=== PATIENT | female | born 1935 | race Caucasian/White ===

== ENCOUNTER 2023-01-05 11:39 | Observation (INO) | payer MEDICARE, OTHER, SELFPAY ==
[2023-01-05] VITALS (36 sets, daily range): BP systolic 107–202; BP diastolic 53–90; PULSE 63–90; RESP 9–24; TEMP 36.4–36.6; O2SAT 94–98; BMI 26.6; BMI 26.7
--- NOTE | 2023-01-05 11:42 | ECG_ITS ---
The 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
[2023-01-05 11:50] LABS: Glucometer 128 mg/dL (74-106)
[2023-01-05 11:55] LABS: Basophils Absolute Auto 0.1 10^3/uL (0.0-0.1); Basophils Percent Auto 1.2 % (0.2-2.0); Eosinophils Absolute Auto 0.3 10^3/uL (0.0-0.7); Eosinophils Percent Auto 3.6 % (0.9-7.0); Hematocrit 35.8 % (36.0-48.0); Hemoglobin 11.6 g/dL (12.0-16.0); Immature Granulocytes Abs Auto 0.03 10^3/uL (0.00-0.03); Immature Granulocytes Pct Auto 0.3 % (0.0-0.5); Lymphocytes Absolute Auto 2.3 10^3/uL (1.2-3.8); Lymphocytes Percent Auto 25.8 % (20.5-60.0); Mean Corpuscular HGB Conc 32.4 g/dL (29.9-35.2); Mean Corpuscular Hemoglobin 30.7 pg (26.7-34.0); Mean Corpuscular Volume 94.7 fL (81.0-99.0); Mean Platelet Volume 9.8 fL (9.5-13.5); Monocytes Absolute Auto 0.9 10^3/uL (0.3-0.8); Monocytes Percent Auto 9.5 % (1.7-12.0); Neutrophils Absolute Auto 5.3 10^3/uL (1.4-6.5); Neutrophils Percent Auto 59.6 % (43.0-75.0); Platelet Count 327 10^3/uL (150-450); Red Blood Count 3.78 10^6/uL (4.20-5.40); Red Cell Distribution Width 12.6 % (11.0-15.0); White Blood Count 8.9 10^3/uL (4.0-11.0)
[2023-01-05 12:07] LABS: INR 0.94
[2023-01-05 12:10] LABS: Alanine Aminotransferase 16 U/L (14-59); Albumin Globulin Ratio 1.1; Albumin Level 3.6 g/dL (3.4-5.0); Alkaline Phosphatase 98 U/L (46-116); Anion Gap 11.2; Aspartate Amino Transferase 12 U/L (15-37); BUN Creatinine Ratio 19.1; Bilirubin Total 0.4 mg/dL (0.2-1.0); Calcium 9.2 mg/dL (8.5-10.1); Carbon Dioxide 27.4 mmol/L (21.0-32.0); Chloride 99 mmol/L (98-107); Estimated GFR (African America >60 (>=60); Estimated GFR (Non-African Ame 57 (>=60); Globulin 3.4 g/dL; Glucose 119 mg/dL (74-106); Potassium 3.6 mmol/L (3.5-5.1); Sodium 134 mmol/L (136-145)
[2023-01-05 12:12] LABS: Troponin I High Sensitivity 5.9 pg/mL (4.0-51.3)
--- NOTE | 2023-01-05 12:12 | PC.NURSE ---
pt reports having fainting spells for yrs, states no dizzy at this time but just feels tired. at bedside at this time
--- NOTE | 2023-01-05 12:17 | CT_ITS ---
The [address] [address] Patient Name: JOSE SANTOYO MRN: [id number] date: 1935 Sex: F Assigned Patient Location: ER Current Patient Location: ED.MAIN Accession/Order Number: [id number] Exam Date: 01/05/2023 12:45 Report Date: 01/05/2023 13:32 At the request of: JOS CANADA Procedure: CT head/brain wo con EXAM: CT head/brain wo con HISTORY: ams altered mental status. COMPARISON: CT head 06/29/2020. TECHNIQUE: Axial soft tissue and bone windows through the calvarium with coronal and sagittal reformats. CT dose reduction technique was used including Automated Exposure Control. Findings: There is mild mucosal thickening within the paranasal sinuses. There is a small amount of frothy secretions within the left sphenoid sinus. The mastoid air cells are well aerated. No extra-axial fluid collection. No intra-axial or extra-axial bleed. No mass effect or midline shift. The lopes-white matter differentiation is preserved. There are white matter low attenuation lesions which are nonspecific but commonly attributed to chronic small vessel ischemic disease. The brain parenchymal volume is mildly reduced yet likely age-appropriate. The ventricles are nondilated. The basal cisterns are patent. The craniovertebral junction is unremarkable. CT/CT head/brain wo con IMPRESSION: 1. No acute intracranial abnormality. MRI is more sensitive for the evaluation of acute ischemia 2. Senescent changes. Electronically authenticated by: NEEMA DUMONT Date: 01/05/2023 13:32
[2023-01-05] MEDS: 0.9 % SODIUM CHLORIDE 1,000 ML 1000 ML IV (12:29)
--- NOTE | 2023-01-05 12:59 | ED.SYNCOPE1 ---
HPI - Syncope General Chief Complaint: Syncope Stated Complaint: SYNCOPE Time Seen by Provider: 01/05/23 11:42 Source: patient Mode of arrival: Wheelchair Limitations: no limitations History of Present Illness HPI narrative: The patient is coming to the ER after she had 2 syncopal episode today the first was when she was standing in the store and she was lowered by her relative to the floor she did not fall but after being lowered to the floor the patient passed out for few seconds after which she woke up not confused and then the patient was brought to us by the private car during which she also passed in the car The patient upon presentation she was wide-awake she mentioned that she did not have any symptoms preceding to this incident and she was not standing for long time. The patient denies any chest pain she did mention having some nausea The patient also denies any headache , chest pain or abdominal pain the patient has been losing weight for a while and apparently has been going through a lot of stress as her 2 sons and her recently The patient denies any change in bowel movement but she mentioned that she does not right had a bowel movement after the incident that was normal Related Data Home Medications Medication Instructions Recorded Confirmed lisinopril 10 mg tablet 10 mg PO DAILY 01/05/23 01/05/23 Allergies Allergy/AdvReac Type Severity Reaction Status Date / Time No Known Drug Allergies Allergy Verified 01/05/23 11:44 Review of Systems ROS Status of ROS 10 or more systems reviewed and unremarkable except as noted in history and below Exam Narrative Exam Narrative: Nurses notes and vital signs reviewed and patient is not hypoxic. General: Well-appearing and in no apparent distress. Skin: Warm, dry, no pallor noted. No rash. Head: Normocephalic, atraumatic. Neck: Supple, non-tender. Eye: Pupils are equal, round and EOMI. No scleral icterus. Ears, Nose, Mouth, and Throat: TM are clear, no nasal mucosal hypertrophy. Oral mucosa is moist, no posterior oropharynx erythema, uvula is mid-line Cardiovascular: Regular Rate and Rhythm without murmur, gallop or rub. Respiratory: No accessory muscle use or respiratory distress. Lungs are clear to auscultation, no wheezing, rales or rhonchi Chest Wall: no tenderness Back: No midline thoracic or lumbar vertebral tenderness. No CVA tenderness Musculoskeletal: normal ROM, no calf or popliteal tenderness, no lower extremity edema/swelling GI: Abdomen is soft, non-distended. Normal bowel sounds. No masses appreciated. No tenderness to palpation. No rebound, guarding, or rigidity noted. Neurological: A&O x4. No cranial nerve dysfunction observed. No truncal ataxia. Moves all extremities. Sensation intact. Psychiatric: Cooperative and interactive. Normal mood and affect. Constitutional Vital Signs, click to edit/add: Last Vital Signs Temp 97.6 F 01/05/23 11:44 Pulse 76 01/05/23 13:40 Resp 18 01/05/23 13:40 BP 167/80 H 01/05/23 14:11 Pulse Ox 97 01/05/23 12:00 O2 Del Method Room Air 01/05/23 12:00 Course Vital Signs Vital signs: Vital Signs Temperature 97.6 F 01/05/23 11:44 Pulse Rate 69 01/05/23 11:44 Respiratory Rate 16 01/05/23 11:44 Blood Pressure 127/82 01/05/23 11:44 Pulse Oximetry 96 01/05/23 11:44 Oxygen Delivery Method Room Air 01/05/23 11:44 Temperature 97.6 F 01/05/23 11:44 Pulse Rate 76 01/05/23 13:40 Respiratory Rate 18 01/05/23 13:40 Blood Pressure 167/80 H 01/05/23 14:11 Pulse Oximetry 97 01/05/23 12:00 Oxygen Delivery Method Room Air 01/05/23 12:00 MDM - Syncope MDM Narrative Medical decision making narrative: EKG showing sinus rhythm with a heart rate of [address] elevation or depression the patient have a orthostatic also that are negative The patient CBC and chemistry showed no acute significant pathology and the troponin repeated twice was negative it was noted that the patient was still looking tired and she had 2 episodes [id number] of syncope although the first 1 could fit the criteria for possible vasovagal but because she had 2 episodes and the fact that all the work-up so far is negative the patient will be kept for observation CT head showed no acute significant pathology The patient case was discussed with and he agreed on the above-mentioned plan Lab Data Labs: Lab Results 01/05/23 01/05/23 01/05/23 Range/Units 11:43 11:45 14:12 WBC 8.9 (4.0-11.0) 10^3/uL RBC 3.78 L (4.20-5.40) 10^6/uL Hgb 11.6 L (12.0-16.0) g/dL Hct 35.8 L (36.0-48.0) % MCV 94.7 (81.0-99.0) fL MCH 30.7 (26.7-34.0) pg MCHC 32.4 (29.9-35.2) g/dL RDW 12.6 (11.0-15.0) % Plt Count 327 (150-450) 10^3/uL MPV 9.8 (9.5-13.5) fL Neut % (Auto) 59.6 (43.0-75.0) % Lymph % (Auto) 25.8 (20.5-60.0) % Fallon % (Auto) 9.5 (1.7-12.0) % Eos % (Auto) 3.6 (0.9-7.0) % Baso % (Auto) 1.2 (0.2-2.0) % Neut # (Auto) 5.3 (1.4-6.5) 10^3/uL Lymph # (Auto) 2.3 (1.2-3.8) 10^3/uL Fallon # (Auto) 0.9 H (0.3-0.8) 10^3/uL Eos # (Auto) 0.3 (0.0-0.7) 10^3/uL Baso # (Auto) 0.1 (0.0-0.1) 10^3/uL Abs Immat Gran (auto) 0.03 (0.00-0.03) 10^3/uL Imm/Tot Granulo (auto) 0.3 (0.0-0.5) % PT 10.0 (9.0-11.6) sec INR 0.94 Sodium 134 L (136-145) mmol/L Potassium 3.6 (3.5-5.1) mmol/L Chloride 99 (98-107) mmol/L Carbon Dioxide 27.4 (21.0-32.0) mmol/L Anion Gap 11.2 BUN 18.0 (7.0-18.0) mg/dL Creatinine 0.94 (0.55-1.02) mg/dL Est GFR ( Amer) >60 (>=60) Est GFR (Non-Af Amer) 57 L (>=60) BUN/Creatinine Ratio 19.1 Glucose 119 H (74-106) mg/dL Calcium 9.2 (8.5-10.1) mg/dL Total Bilirubin 0.4 (0.2-1.0) mg/dL AST 12 L (15-37) U/L ALT 16 (14-59) U/L Alkaline Phosphatase 98 (46-116) U/L Troponin I High Sens 5.9 6.4 (4.0-51.3) pg/mL Total Protein 7.0 (6.4-8.2) g/dL Albumin 3.6 (3.4-5.0) g/dL Globulin 3.4 g/dL Albumin/Globulin Ratio 1.1 POC Glucose 128 H (74-106) mg/dL Discharge Plan Discharge Chief Complaint: Syncope Clinical Impression: Recurrent syncope Patient Disposition: Admitted as Observation Time of Disposition Decision: 14:50 Condition: Good
[2023-01-05] MEDS: ONDANSETRON PF 4 MG/2 ML VIAL IV (13:15)
[2023-01-05] MEDS: LISINOPRIL 10 MG TABLET PO (14:11)
[2023-01-05 14:36] LABS: Troponin I High Sensitivity 6.4 pg/mL (4.0-51.3)
--- NOTE | 2023-01-05 14:52 | CA_ITS ---
Patient: JOSE SANTOYO Exam Date: 01/05/2023 : 1935 Gender:F Ordering : Olinda Mcguire Admission #: [id number] Family : DR LEOLA VARGAS . Order #: [id number] CLICK HERE TO VIEW EXAM ECHOCARDIOGRAM REPORT PROCEDURE: CA ECHO DOPPLER COMPLETE INDICATIONS: syncope COMPARISON: None. DESCRIPTION: COMPLETE ECHOCARDIOGRAM Real-time transthoracic echocardiography with 2D, M-mode, spectral and color flow Doppler performed. QUALITY: Technical quality was good. LEFT VENTRICLE: Normal chamber size. Proximal septal hypertrophy (sigmoid septum). Normal systolic function. LV EF: Normal left ventricular ejection fraction, (55-60%). DIASTOLIC: Normal diastolic function. ATRIAL SEPTUM: Visually appears intact. LEFT ATRIUM: Normal chamber size. RIGHT ATRIUM: Normal chamber size. RIGHT VENTRICLE: Normal chamber size. Normal right ventricular systolic function. TRICUSPID VALVE: Normal mobility and thickness. No stenosis with no regurgitation. MITRAL VALVE: Mildly thickened with normal mobility. No evidence of mitral valve stenosis. Moderate mitral annular calcification. No mitral regurgitation. AORTIC VALVE: Normal trileaflet appearance. No visible sclerosis. Normal leaflet mobility. No evidence of aortic valve stenosis. No aortic regurgitation. AORTIC ROOT: Normal diameter and appearance. PULMONIC VALVE: Normal thickness and mobility. No stenosis. No regurgitation. PERICARDIUM: No evidence of pericardial effusion. IVC: Collapses with inspirations. PLEURA: CONCLUSION: 1. Normal ventricular function. LVEF is 55 to 60%. 2. No significant valvular dysfunction. 3. No pericardial effusion. Adult Echocardiography Procedure Report Left Ventricle LVEDD (3.7 - 5.6 cm): 3.79 cm LVESD (2.2 - 4.0 cm): 2.20 cm LVIVS thickness (0.6 - 1.2 cm): 1.66 cm LVPW thickness (0.5 - 1.0 cm): 1.13 cm e': 0.07 m/s E - e': 12.76 LVOT Max Gradient: 6.67 mm[Hg] LVOT Area (cm2): 1.29 m/s Peak Velocity (LVOT): 1.29 m/s LVOT Diameter 2.19 cm Left Atrium LA Volume Index (2D A2C): 25.12 ml/m2 Left Atrium Systolic Dimension: 3.93 cm Mitral Valve MV E to A Ratio: 0.68 Mitral Valve A-Wave Peak Velocity: 1.36 m/s Mitral Valve E-Wave Peak Velocity: 0.92 m/s Right Ventricle Aorta AO Root Diam: 2.88 cm Aortic Valve AoV Area (Peak Damien): 3.48 cm2, 3.48 cm2 Peak Velocity(Antegrade Flow): 1.39 m/s Peak Gradient(Antegrade Flow): 7.78 mm[Hg] Tricuspid Valve Pulmonic Valve Peak Velocity: 1.12 m/s Peak Gradient: 5.99 mm[Hg], 4.19 mm[Hg] Right Atrium Dictated by: Farooq Woody M.D. on 01/05/2023 at 17:04 Approved by: Farooq Woody M.D. on 01/05/2023 at 17:09
--- NOTE | 2023-01-05 14:52 | US_ITS ---
[address] [address] Patient Name: JOSE SANTOYO MRN: [id number] date: 1935 Sex: F Assigned Patient Location: MS Current Patient Location: MS Accession/Order Number: [id number] Exam Date: 01/05/2023 16:10 Report Date: 01/06/2023 07:37 At the request of: LÓPEZ HUFFMAN Procedure: US carotid duplex BI ULTRASOUND Carotid artery color duplex History: Syncope. COMPARISON: None. METHOD: Bilateral carotid arterial duplex examination was performed using B-mode, color flow and spectral analysis. Carotid stenosis is reported according to validated velocity parameters, similar to NASCET criteria. FINDINGS: There is mild heterogeneous plaque in the carotid bulbs and internal carotid arteries. There are normal-appearing spectral arterial waveforms. There is normal color flow. The peak-systolic velocity in the internal carotid arteries in cm/s is as follows: RIGHT INTERNAL CAROTID ARTERY Proximal: 114 Mid: 132 Distal: 120 LEFT INTERNAL CAROTID ARTERY Proximal: 167 Mid: 155 Distal: 105 There are no elevated velocities in the common carotid or external carotid arteries bilaterally. There are forward-flow vertebral arteries. US/US carotid duplex BI IMPRESSION: Findings consistent with a 50-69% stenosis in the bilateral internal carotid arteries, left worse than right. Electronically authenticated by: ANSELMO ORLANDO Date: 01/06/2023 07:37
--- NOTE | 2023-01-05 15:43 | P.HP_ITS ---
Patient not seen, agree with assessment and plan below. Admitted after syncope. Monitor with telemetry and check carotids. Diagnosis: 1. Syncope 2. HTN H&P: HPI History of Present Illness Chief complaint: SYNCOPE Narrative: Date/Time of exam: 01/05/23 6803 This is an 87-year-old female patient with a relatively benign past medical history including hypertension and GERD and recurrent syncope, who reported to the ED after suffering 2 syncopal episodes earlier today. 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 Today she was in a store and was feeling warm which sometimes triggers syncope for her. She was attempting to get back outside to the car when she became syncopal and was caught by her friend and lowered to the ground. She was unconscious for approximately a minute and then regained full consciousness. The patient reports that prior to syncopal episodes she feels lightheaded and woozy. She denies prodromal vertigo, palpitations, shortness of breath, chest pain, headache, or any other symptom. She has full memory of events immediately preceding and immediately post syncope. After she was transferred to the car and they were on the way to the ER the patient had another syncopal episode, this time lasting 1 to 2 minutes and was again self-limited. Work-up in the ED 9 with unremarkable labs, negative troponins x2, and a CT of the head that was unremarkable. An EKG was normal sinus rhythm. OVS were negative. When she was transferring from the cart to CT bed she experienced sudden onset emesis. She denies nausea and vomiting with her usual syncopal events. No further nausea noted throughout the rest of her time in ED. She was given one liter of IVFs for suspected dehydration. As she continues to feel more weak than her baseline she is being admitted in observation to the hospitalist service for further work-up and monitoring. At the time of my exam in the ED the patient was awake and alert and denied any presyncopal symptoms. She feels that this event was similar to all of her previous events other than the emesis. She notes that she has experienced significant stress in the last couple of years as she has lost 2 sons and her . We will obtain a 2D echo to attempt to rule out wall motion or valvular abnormalities. In addition we will obtain a carotid duplex study to rule out physiologically significant stenosis. The pt notes that she did not s leep well last night and believes this may have contributed to her syncopal events Review of Systems ROS Status of ROS 10 or more systems reviewed and unremarkable except as noted in history and below [facility] Medical History (Updated 01/05/23 @ 15:51 by Olinda Mcguire NP) GERD (gastroesophageal reflux disease) ?K21.9 - Gastro-esophageal reflux disease without esophagitis (ICD-10) History of syncope ?Z87.898 - Personal history of other specified conditions (ICD-10) HTN (hypertension) ?I10 - Essential (primary) hypertension (ICD-10) Meds Home Medications and Allergies Home Medications Medication Instructions Recorded Confirmed Type alprazolam 0.25 mg tablet 0.25 mg PO .Q6 PRN anxiety 01/05/23 01/05/23 History lisinopril 10 mg tablet 10 mg PO DAILY 01/05/23 01/05/23 History Allergies Allergy/AdvReac Type Severity Reaction Status Date / Time No Known Drug Allergies Allergy Verified 01/05/23 11:44 Exam Constitutional Vital Signs, click to edit/add: Last Vital Signs Temp 97.6 F 01/05/23 11:44 Pulse 85 01/05/23 15:00 Resp 17 01/05/23 15:00 BP 159/69 H 01/05/23 15:00 Pulse Ox 97 01/05/23 12:00 O2 Del Method Room Air 01/05/23 12:00 Common normals: no apparent distress, oriented x3, alert and well nourished General appearance: cooperative Orientation/consciousness: Yes awake [facility] Common normals: normocephalic, head/scalp atraumatic, hearing grossly normal bilaterally, external ears normal, external nose normal and moist oral mucous membranes Eye Common normals: PERRL, EOMs intact bilaterally, conjunctivae normal and no scleral icterus General eye: normal appearance of both eyes Chest Common normals: inspection of chest normal Chest: symmetrical chest wall rise Respiratory Common normals: normal respiratory effort, no retractions, no use of accessory muscles and clear to auscultation bilaterally Effort & inspection: able to speak in complete sentences Cardio Common normals: no JVD, regular rate, regular rhythm, S1 normal heart sound, S2 normal heart sound, no gallops, no clicks, no rub and peripheral pulses 2+ throughout Heart sounds: murmur (HSM 2/6) GI Common normals: Normal to inspection, nondistended, normoactive bowel sounds present, soft to palpation, non-tender, no hepatosplenomegaly, no masses and no bruits Bladder/kidney exam: bladder normal to palpation Extremity Common normals: normal capillary refill General: normal exam except as noted and edema (Trace bilat insteps/ankles); no clubbing and no cyanosis Neuro Alexandre Coma Scale: GCS not evaluated Common normals: oriented x3, CN's II-XII intact bilaterally, moves all extremities, no focal motor deficits and no sensory deficits noted Psych Common normals: mental status grossly normal, thought process normal, affect normal and activity/motor behavior normal Thought process: normal thought process Results Labs Labs: Short CBC 01/05/23 Range/Units 11:45 WBC 8.9 (4.0-11.0) 10^3/uL Hgb 11.6 L (12.0-16.0) g/dL Hct 35.8 L (36.0-48.0) % Plt Count 327 (150-450) 10^3/uL BMP 01/05/23 11:45 Sodium 134 L Potassium 3.6 Chloride 99 Carbon Dioxide 27.4 BUN 18.0 Creatinine 0.94 Glucose 119 H Calcium 9.2 Liver Function 01/05/23 Range/Units 11:45 Total Bilirubin 0.4 (0.2-1.0) mg/dL AST 12 L (15-37) U/L ALT 16 (14-59) U/L Alkaline Phosphatase 98 (46-116) U/L Albumin 3.6 (3.4-5.0) g/dL Pulse Oximetry Attestation: I have reviewed the pertinent pulse oximetry results. Imaging CT scan - head: Attestation: I have reviewed the pertinent imaging results. Radiologist's impression: IMPRESSION: 1. No acute intracranial abnormality. MRI is more sensitive for the evaluation of acute ischemia 2. Senescent changes. Assessment and Plan Assessment and Plan (1) Recurrent syncope: Assessment and Plan: ACUTE ON CHRONIC * Adm observation * Neuro checks q4h * OVS BID - neg in the ED * 2D Echo to r/o WM or Valvular abn. * Carotid duplex to r/o significant stenosis * Tele monitoring * Consider MRI brain in AM pending clinical course * CBC, CMP in AM (2) GERD (gastroesophageal reflux disease): Assessment and Plan: CHRONIC * PPI daily (3) HTN (hypertension): Assessment and Plan: CHRONIC * Continue home lisinopril - hold for SBP < 110. * No evidence of hypotension as etiology of syncope
[2023-01-05] MEDS: ALPRAZOLAM 0.25 MG TABLET PO (18:16)
[2023-01-05] MEDS: ENOXAPARIN SODIUM 40 MG/0.4 ML SYRINGE SUBQ (18:17)
[2023-01-05] MEDS: OMEPRAZOLE 20 MG CAPSULE.DR PO (18:17)
[2023-01-06] VITALS (7 sets, daily range): BP systolic 147–180; BP diastolic 51–70; PULSE 61–72; RESP 18; TEMP 36.9; O2SAT 93
[2023-01-06 05:16] LABS: Basophils Absolute Auto 0.1 10^3/uL (0.0-0.1); Basophils Percent Auto 1.5 % (0.2-2.0); Eosinophils Absolute Auto 0.3 10^3/uL (0.0-0.7); Eosinophils Percent Auto 5.3 % (0.9-7.0); Hematocrit 30.9 % (36.0-48.0); Hemoglobin 10.1 g/dL (12.0-16.0); Immature Granulocytes Abs Auto 0.01 10^3/uL (0.00-0.03); Immature Granulocytes Pct Auto 0.2 % (0.0-0.5); Lymphocytes Absolute Auto 1.9 10^3/uL (1.2-3.8); Lymphocytes Percent Auto 31.9 % (20.5-60.0); Mean Corpuscular HGB Conc 32.7 g/dL (29.9-35.2); Mean Corpuscular Volume 94.8 fL (81.0-99.0); Mean Platelet Volume 10.1 fL (9.5-13.5); Monocytes Absolute Auto 0.6 10^3/uL (0.3-0.8); Monocytes Percent Auto 10.7 % (1.7-12.0); Neutrophils Percent Auto 50.4 % (43.0-75.0); Platelet Count 257 10^3/uL (150-450); Red Blood Count 3.26 10^6/uL (4.20-5.40); Red Cell Distribution Width 12.5 % (11.0-15.0); White Blood Count 5.9 10^3/uL (4.0-11.0)
[2023-01-06 05:39] LABS: Alanine Aminotransferase 15 U/L (14-59); Albumin Level 2.9 g/dL (3.4-5.0); Alkaline Phosphatase 79 U/L (46-116); Aspartate Amino Transferase 12 U/L (15-37); BUN Creatinine Ratio 22.2; Bilirubin Total 0.5 mg/dL (0.2-1.0); Calcium 8.8 mg/dL (8.5-10.1); Carbon Dioxide 28.8 mmol/L (21.0-32.0); Chloride 105 mmol/L (98-107); Estimated GFR (African America >60 (>=60); Estimated GFR (Non-African Ame >60 (>=60); Glucose 82 mg/dL (74-106); Potassium 3.8 mmol/L (3.5-5.1); Sodium 138 mmol/L (136-145); Total Protein 5.9 g/dL (6.4-8.2)
[2023-01-06] MEDS: LISINOPRIL 10 MG TABLET PO (09:43)
[2023-01-06] MEDS: OMEPRAZOLE 20 MG CAPSULE.DR PO (09:43)
--- NOTE | 2023-01-30 15:05 | PM.DS1 ---
DS: Providers Provider Date of admission: 01/05/23 15:28 Primary care physician: JANIE LINO Consults: 01/05/23 15:29 Physical Therapy Eval and Treat Routine Reason for consultation: Gen weakness Has provider been notified: No Attending physician on discharge: Shaikh Myron Discharging clinician: Shaikh Myron Anticipated date of discharge: 01/06/23 DS: Diagnosis Discharge Diagnosis (1) Recurrent syncope: Assessment and plan: Likely Vasovagal. CTH - no acute pathology noted. 2D ECHO - no sig abnormality noted. 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 At goal. Decreased dose to 10 mg. DS: Summary Hospital Course Hospital Course: Patient admitted for 2 syncopal episodes. Description seemed cw vasovagal syncope. Admitted for overnight observation. Did well and denied any active complaints. Babcock included Normal CTH, 2D ECHO. Carotid US indicated 50-70% stenosis b/l. Stable for d/c on home meds and outpatient f/u with PCP Status at Discharge Functional status at discharge: independent ambulation Overall status at discharge: patient is back to baseline Time Spent with Patient Time attestation: Total time spent providing and/or coordinating discharge services: Time spent: greater than 30 minutes Exam Constitutional Vital Signs, click to edit/add: Last Vital Signs Temp 98.4 F 01/06/23 06:00 Pulse 72 01/06/23 10:00 Resp 18 01/06/23 06:00 BP 160/70 H 01/06/23 09:43 Pulse Ox 93 L 01/06/23 06:00 O2 Del Method Room Air 01/06/23 06:00 Documenting provider has reviewed patient's vital signs: yes Common normals: no apparent distress and oriented x3 General appearance: cooperative Respiratory Common normals: normal respiratory effort and clear to auscultation bilaterally Effort & inspection: able to speak in complete sentences Auscultation: clear to auscultation bilaterally Cardio Common normals: regular rate, S1 normal heart sound and S2 normal heart sound Rate: regular rate Heart sounds: S1 normal and S2 normal GI Common normals: Normal to inspection, nondistended, normoactive bowel sounds present, soft to palpation, non-tender and no hepatosplenomegaly Palpation: soft and no hepatosplenomegaly Neuro Common normals: oriented x3, moves all extremities and no focal motor deficits Discharge Plan Discharge Disposition: Home, Self-Care Condition: Good Discharge Medications: Continued lisinopril 10 mg tablet 20 mg PO DAILY Activity: increase activity as tolerated Diet: advance to your usual diet Patient Instructions: Near Syncope (DC) Forms: Portal Instructions Referrals: Shaikh Sanches MD [Physician] - Follow Up Appointments: Follow up with Dr Lino in 7-10 days. [phone] Sanches as patient is thinking of switching to him as her PCP Discharge Date/Time: 01/06/23 11:50
== END 2023-01-06 11:50 | disposition home or self-care (01) ==
LOC: ER 14:50 → MS 15:33
PROVIDERS: Nurse Practitioner; Admitting Provider Internal Medicine; Emergency Provider Emergency Medicine; PCP Internal Medicine; Visit Provider Internal Medicine
DX: R55 Syncope and collapse (principal); I10 Essential (primary) hypertension; K21.9 Gastro-esophageal reflux disease without esophagitis; Z79.899 Other long term (current) drug therapy
CPT/HCPCS: 36415; 36416; 70450; 80053; 82948; 84484; 85025; 85610; 93005; 93306; 93880; 96361; 96372; 96374; 99285; G0378

== ENCOUNTER 2023-01-12 17:54 | Emergency (ER) | payer MEDICARE, OTHER, SELFPAY ==
[2023-01-12] VITALS (22 sets, daily range): BP systolic 170–225; BP diastolic 67–105; PULSE 66–98; RESP 12–26; TEMP 36.4; O2SAT 96–99; BMI 27.8
--- NOTE | 2023-01-12 18:10 | ECG_ITS ---
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
--- NOTE | 2023-01-12 18:10 | XR_ITS ---
The [address] [address] Patient Name: JOSE SANTOYO MRN: [id number] date: 1935 Sex: F Assigned Patient Location: ED.MAIN Current Patient Location: ER Accession/Order Number: [id number] Exam Date: 01/12/2023 18:30 Report Date: 01/12/2023 19:12 At the request of: ELVA ISRAEL Procedure: XR chest 1V EXAM: XR chest 1V HISTORY: HTN COMPARISON: None. TECHNIQUE: AP portable study FINDINGS: The cardiovascular silhouette is normal. Atherosclerotic aorta without visible aneurysm. Lung viera are well-expanded and clear. Pleural spaces are clear. The bony structures are unremarkable. XR/XR chest 1V IMPRESSION: No evidence for acute cardiopulmonary disease. Electronically authenticated by: Juanjose BAILON Date: 01/12/2023 19:12
--- NOTE | 2023-01-12 18:25 | ED_ITS ---
Documented by User: JYOTHI Dejesus 01/12/23 20:23 HPI - General Adult General Chief complaint: Recheck/Abnormal Lab/Rx Stated complaint: Hypertension Time Seen by Provider: 01/12/23 18:08 Source: patient Mode of arrival: walk-in Limitations: no limitations History of Present Illness HPI narrative: patient is a 87-year-old female presents to the Emergency Room with concerns of hypertension. Patient states she took her blood pressure at home noted to be elevated above two hundred systolic and again at the local drug store. Patient states she does not have any symptoms such as chest pain shortness of breath or headache. Patient states she has been anxious since losing her to a head bleed and her son to pancreatic cancer. She also had another son two years ago. Patient is accompanied today by her grandson. Patient states she took lisinopril 20 mg earlier today and took another 10 mg about one hour prior to arrival, but was not appreciating a difference in her blood pressure. Patient notes she has had high bouts of blood pressure intermittently in the past with anxiety requiring treatment. Patient appears calm and redirectable, admits to 50 pound weight loss since the of her loved ones but has recently started getting her appetite back. Patient has been talking her way through depression/grief feelings.. Related Data Home Medications Medication Instructions Recorded Confirmed lisinopril 10 mg tablet 20 mg PO DAILY 01/05/23 01/12/23 Allergies Allergy/AdvReac Type Severity Reaction Status Date / Time No Known Drug Allergies Allergy Verified 01/05/23 11:44 Review of Systems ROS Constitutional Denies: fever or chills Eyes Denies: change in vision or blurry vision Ears, nose, mouth, and throat Denies: throat pain, neck pain, throat swelling or ear discharge Cardiovascular Denies: chest pain, palpitations or edema Respiratory Denies: shortness of breath or cough Gastrointestinal Denies: abdominal pain, nausea or vomiting Genitourinary Denies: painful urination Musculoskeletal Denies: back pain or neck pain Integumentary/Breast Denies: rash, itching, redness or non-healing lesion Neurological Denies: headache, numbness in extremities, weakness in extremities, lack of coordination, dizziness, vertigo or confusion Psychiatric Reports: anxiety Endocrine Denies: excessive urination Hematologic/Lymphatic Denies: easy bruising Allergic/Immunologic Denies: hives PFSH PFSH Medical History (Updated 01/12/23 @ 18:31 by JYOTHI Dejesus) GERD (gastroesophageal reflux disease) ?K21.9 - Gastro-esophageal reflux disease without esophagitis (ICD-10) History of syncope ?Z87.898 - Personal history of other specified conditions (ICD-10) HTN (hypertension) ?I10 - Essential (primary) hypertension (ICD-10) Recurrent syncope ?R55 - Syncope and collapse (ICD-10) Social History Smoking status: Never smoker Exam Narrative Exam Narrative: Nurses notes and vital signs reviewed and patient is not hypoxic. General: The patient appears well and in no apparent distress. Patient is resting comfortably on cart. Skin: Warm, dry, no pallor noted. Head: Normocephalic, atraumatic Neck: Supple, trachea mid-line, no tenderness, no lymphadenopathy Eye: Pupils are equal, round and reactive to light, EOMI Ears, Nose, Mouth, and Throat: TM are clear, normal light reflex, oral mucosa is moist, no posterior oropharynx erythema or hypertrophy, uvula is mid-line Cardiovascular: Regular Rate and Rhythm Respiratory: Patient is in no distress, no accessory muscle use, lungs are clear to auscultation, no wheezing, rales or rhonchi. Chest Wall: no tenderness Back: non-tender, no CVA tenderness Musculoskeletal: normal ROM, no tenderness, no swelling GI: Normal bowel sounds, no tenderness to palpation, no masses appreciated. No rebound, guarding, or rigidity noted. Neurological: A&O x4 Psychiatric: Cooperative Constitutional Vital Signs, click to edit/add: Last Vital Signs Temp 97.6 F 01/12/23 17:57 Pulse 77 01/12/23 20:20 Resp 21 01/12/23 20:26 BP 172/85 H 01/12/23 20:20 Pulse Ox 97 01/12/23 20:20 O2 Del Method Room Air 01/12/23 17:57 Course Vital Signs Vital signs: Vital Signs Temperature 97.6 F 01/12/23 17:57 Pulse Rate 98 H 01/12/23 17:57 Respiratory Rate 18 01/12/23 17:57 Blood Pressure 225/90 H 01/12/23 17:57 Pulse Oximetry 99 01/12/23 17:57 Oxygen Delivery Method Room Air 01/12/23 17:57 Temperature 97.6 F 01/12/23 17:57 Pulse Rate 77 01/12/23 20:20 Respiratory Rate 21 01/12/23 20:26 Blood Pressure 172/85 H 01/12/23 20:20 Pulse Oximetry 97 01/12/23 20:20 Oxygen Delivery Method Room Air 01/12/23 17:57 Medical Decision Making MDM Narrative Medical decision making narrative: Blood pressure bilateral arms symmetrically elevated. Patient was observed and blood pressure recheck was 212/105. Heart rate 85bpm. Patient be given 5 mg of Lopressor. patient otherwise asymptomatic. patient received 5 mg IV Lopressor with improvement in her pressure down to 170/67. Her blood pressure started to creep back up into the 180s was given 5 mg of hydralazine. We discussed her laboratory studies. Recommend she take her blood pressure once a day while she is relaxed, continue with her lisinopril 20 mg in the a.m. as her PCP recently increased her dose from 10-20. Recommend she see her family doctor on Sunday or Sunday to discuss ongoing medication adju stment and she gets more readings with her home monitor. Patient may return to the Emergency Room any time should she develop any symptoms. The patient is to followup with primary care physician in next 2-3 days or to return to the emergency department should any of the signs or symptoms worsen or new symptoms develop. Patient had questions answered. The patient agrees with the following Diagnosis and Treatment plan and the patient will be discharged home. Lab Data Lab results reviewed: Yes I reviewed the patient's lab results Labs: Lab Results 01/12/23 Range/Units 18:10 WBC 7.1 (4.0-11.0) 10^3/uL RBC 3.56 L (4.20-5.40) 10^6/uL Hgb 11.3 L (12.0-16.0) g/dL Hct 34.4 L (36.0-48.0) % MCV 96.6 (81.0-99.0) fL MCH 31.7 (26.7-34.0) pg MCHC 32.8 (29.9-35.2) g/dL RDW 12.4 (11.0-15.0) % Plt Count 291 (150-450) 10^3/uL MPV 9.9 (9.5-13.5) fL Neut % (Auto) 52.6 (43.0-75.0) % Lymph % (Auto) 29.8 (20.5-60.0) % [place] % (Auto) 10.5 (1.7-12.0) % Eos % (Auto) 4.7 (0.9-7.0) % Baso % (Auto) 2.1 H (0.2-2.0) % Neut # (Auto) 3.7 (1.4-6.5) 10^3/uL Lymph # (Auto) 2.1 (1.2-3.8) 10^3/uL [place] # (Auto) 0.7 (0.3-0.8) 10^3/uL Eos # (Auto) 0.3 (0.0-0.7) 10^3/uL Baso # (Auto) 0.2 H (0.0-0.1) 10^3/uL Abs Immat Gran (auto) 0.02 (0.00-0.03) 10^3/uL Imm/Tot Granulo (auto) 0.3 (0.0-0.5) % Sodium 134 L (136-145) mmol/L Potassium 3.8 (3.5-5.1) mmol/L Chloride 101 (98-107) mmol/L Carbon Dioxide 27.5 (21.0-32.0) mmol/L Anion Gap 9.3 BUN 11.0 (7.0-18.0) mg/dL Creatinine 0.77 (0.55-1.02) mg/dL Est GFR ( Amer) >60 (>=60) Est GFR (Non-Af Amer) >60 (>=60) BUN/Creatinine Ratio 14.3 Glucose 97 (74-106) mg/dL Calcium 9.0 (8.5-10.1) mg/dL Total Bilirubin 0.3 (0.2-1.0) mg/dL AST 18 (15-37) U/L ALT 17 (14-59) U/L Alkaline Phosphatase 107 (46-116) U/L Total Creatine Kinase 51 (26-192) U/L CK-MB (CK-2) 0.65 (<=3.60) ng/mL Myoglobin 31 (9-82) ng/mL Troponin I High Sens 8.6 (4.0-51.3) pg/mL Total Protein 7.0 (6.4-8.2) g/dL Albumin 3.7 (3.4-5.0) g/dL Globulin 3.3 g/dL Albumin/Globulin Ratio 1.1 Imaging Data Chest x-ray: Radiologist's impression: Procedure: XR chest 1V EXAM: XR chest 1V HISTORY: HTN COMPARISON: None. TECHNIQUE: AP portable study FINDINGS: The cardiovascular silhouette is normal. Atherosclerotic aorta without visible aneurysm. Lung viera are well-expanded and clear. Pleural spaces are clear. The bony structures are unremarkable. IMPRESSION: No evidence for acute cardiopulmonary disease. Electronically authenticated by: Juanjose BAILON Date: 01/12/2023 19:12 ECG Data Attestation: I personally reviewed and interpreted this ECG as follows: Interpretation: EKG interpretation: Emergency Department physician interpretation, normal sinus rhythm 92 bpm , occasional pvc , no ST segment elevation, normal axis. Discharge Plan Discharge Chief Complaint: Recheck/Abnormal Lab/Rx Clinical Impression: Hypertension Patient Disposition: Home, Self-Care Time of Disposition Decision: 20:20 Condition: Good Prescriptions / Home Meds: No Action lisinopril 10 mg tablet 20 mg PO DAILY Instructions: Hypertension in the Older Adult (ED) Stand Alone Forms: Portal Instructions Referrals: JANIE VALDES [Primary Care Provider] - As soon as possible Discharge Date/Time: 01/12/23 20:43 Documented by User: Yordan Leon MD 01/15/23 22:47 HPI - General Adult General Chief complaint: Recheck/Abnormal Lab/Rx Stated complaint: Hypertension Time Seen by Provider: 01/12/23 18:08 Related Data Home Medications Medication Instructions Recorded Confirmed lisinopril 10 mg tablet 20 mg PO DAILY 01/05/23 01/12/23 Allergies Allergy/AdvReac Type Severity Reaction Status Date / Time No Known Drug Allergies Allergy Verified 01/05/23 11:44 PFSH PFS Medical History (Updated 01/12/23 @ 18:31 by JYOTHI Dejesus) GERD (gastroesophageal reflux disease) ?K21.9 - Gastro-esophageal reflux disease without esophagitis (ICD-10) History of syncope ?Z87.898 - Personal history of other specified conditions (ICD-10) HTN (hypertension) ?I10 - Essential (primary) hypertension (ICD-10) Recurrent syncope ?R55 - Syncope and collapse (ICD-10) Social History Smoking status: Never smoker Exam Constitutional Vital Signs, click to edit/add: Last Vital Signs Temp 97.6 F 01/12/23 17:57 Pulse 77 01/12/23 20:20 Resp 21 01/12/23 20:26 BP 172/85 H 01/12/23 20:20 Pulse Ox 97 01/12/23 20:20 O2 Del Method Room Air 01/12/23 17:57 Course Vital Signs Vital signs: Vital Signs Temperature 97.6 F 01/12/23 17:57 Pulse Rate 98 H 01/12/23 17:57 Respiratory Rate 18 01/12/23 17:57 Blood Pressure 225/90 H 01/12/23 17:57 Pulse Oximetry 99 01/12/23 17:57 Oxygen Delivery Method Room Air 01/12/23 17:57 Temperature 97.6 F 01/12/23 17:57 Pulse Rate 77 01/12/23 20:20 Respiratory Rate 21 01/12/23 20:26 Blood Pressure 172/85 H 01/12/23 20:20 Pulse Oximetry 97 01/12/23 20:20 Oxygen Delivery Method Room Air 01/12/23 17:57 Medical Decision Making [facility] Narrative Medical decision making narrative: Blood pressure bilateral arms symmetrically elevated. Patient was observed and blood pressure recheck was 212/105. Heart rate 85bpm. Patient be given 5 mg of Lopressor. patient otherwise asymptomatic. patient received 5 mg IV Lopressor with improvement in her pressure down to 170/67. Her blood pressure started to creep back up into the 180s was given 5 mg of hydralazine. We discussed her laboratory studies. Recommend she take her blood pressure once a day while she is relaxed, continue with her lisinopril 20 mg in the a.m. as her PCP recently increased her dose from 10-20. Recommend she see her family doctor on Sunday or Sunday to discuss ongoing medication adjustment and she gets more readings with her home monitor. Patient may return to the Emergency Room any time should she develop any symptoms. The patient is to followup with primary care physician in next 2-3 days or to return to the emergency department should any of the signs or symptoms worsen or new symptoms develop. Patient had questions answered. The patient agrees with the following Diagnosis and Treatment plan and the patient will be discharged home. I, Dr Leon, have reviewed the above progress note and course of action in the ER; agree with the above. I have personally seen and evaluated this patient, gone over history and physical, and discussed disposition and treatment plan with the patient. Lab Data Labs: Lab Results 01/12/23 Range/Units 18:10 WBC 7.1 (4.0-11.0) 10^3/uL RBC 3.56 L (4.20-5.40) 10^6/uL Hgb 11.3 L (12.0-16.0) g/dL Hct 34.4 L (36.0-48.0) % MCV 96.6 (81.0-99.0) fL MCH 31.7 (26.7-34.0) pg MCHC 32.8 (29.9-35.2) g/dL RDW 12.4 (11.0-15.0) % Plt Count 291 (150-450) 10^3/uL MPV 9.9 (9.5-13.5) fL Neut % (Auto) 52.6 (43.0-75.0) % Lymph % (Auto) 29.8 (20.5-60.0) % [place] % (Auto) 10.5 (1.7-12.0) % Eos % (Auto) 4.7 (0.9-7.0) % Baso % (Auto) 2.1 H (0.2-2.0) % Neut # (Auto) 3.7 (1.4-6.5) 10^3/uL Lymph # (Auto) 2.1 (1.2-3.8) 10^3/uL [place] # (Auto) 0.7 (0.3-0.8) 10^3/uL Eos # (Auto) 0.3 (0.0-0.7) 10^3/uL Baso # (Auto) 0.2 H (0.0-0.1) 10^3/uL Abs Immat Gran (auto) 0.02 (0.00-0.03) 10^3/uL Imm/Tot Granulo (auto) 0.3 (0.0-0.5) % Sodium 134 L (136-145) mmol/L Potassium 3.8 (3.5-5.1) mmol/L Chloride 101 (98-107) mmol/L Carbon Dioxide 27.5 (21.0-32.0) mmol/L Anion Gap 9.3 BUN 11.0 (7.0-18.0) mg/dL Creatinine 0.77 (0.55-1.02) mg/dL Est GFR ( Amer) >60 (>=60) Est GFR (Non-Af Amer) >60 (>=60) BUN/Creatinine Ratio 14.3 Glucose 97 (74-106) mg/dL Calcium 9.0 (8.5-10.1) mg/dL Total Bilirubin 0.3 (0.2-1.0) mg/dL AST 18 (15-37) U/L ALT 17 (14-59) U/L Alkaline Phosphatase 107 (46-116) U/L Total Creatine Kinase 51 (26-192) U/L CK-MB (CK-2) 0.65 (<=3.60) ng/mL Myoglobin 31 (9-82) ng/mL Troponin I High Sens 8.6 (4.0-51.3) pg/mL Total Protein 7.0 (6.4-8.2) g/dL Albumin 3.7 (3.4-5.0) g/dL Globulin 3.3 g/dL Albumin/Globulin Ratio 1.1 Discharge Plan Discharge Chief Complaint: Recheck/Abnormal Lab/Rx Clinical Impression: Hypertension Patient Disposition: Home, Self-Care Time of Disposition Decision: 20:20 Condition: Good Prescriptions / Home Meds: No Action lisinopril 10 mg tablet 20 mg PO DAILY Instructions: Hypertension in the Older Adult (ED) Stand Alone Forms: Portal Instructions Referrals: JANIE VALDES [Primary Care Provider] - As soon as possible Discharge Date/Time: 01/12/23 20:43
[2023-01-12 18:27] LABS: Basophils Absolute Auto 0.2 10^3/uL (0.0-0.1); Basophils Percent Auto 2.1 % (0.2-2.0); Eosinophils Absolute Auto 0.3 10^3/uL (0.0-0.7); Eosinophils Percent Auto 4.7 % (0.9-7.0); Hematocrit 34.4 % (36.0-48.0); Hemoglobin 11.3 g/dL (12.0-16.0); Immature Granulocytes Abs Auto 0.02 10^3/uL (0.00-0.03); Immature Granulocytes Pct Auto 0.3 % (0.0-0.5); Lymphocytes Absolute Auto 2.1 10^3/uL (1.2-3.8); Lymphocytes Percent Auto 29.8 % (20.5-60.0); Mean Corpuscular HGB Conc 32.8 g/dL (29.9-35.2); Mean Corpuscular Hemoglobin 31.7 pg (26.7-34.0); Mean Corpuscular Volume 96.6 fL (81.0-99.0); Mean Platelet Volume 9.9 fL (9.5-13.5); Monocytes Absolute Auto 0.7 10^3/uL (0.3-0.8); Monocytes Percent Auto 10.5 % (1.7-12.0); Neutrophils Absolute Auto 3.7 10^3/uL (1.4-6.5); Neutrophils Percent Auto 52.6 % (43.0-75.0); Platelet Count 291 10^3/uL (150-450); Red Blood Count 3.56 10^6/uL (4.20-5.40); Red Cell Distribution Width 12.4 % (11.0-15.0); White Blood Count 7.1 10^3/uL (4.0-11.0)
[2023-01-12 18:46] LABS: Alanine Aminotransferase 17 U/L (14-59); Albumin Globulin Ratio 1.1; Albumin Level 3.7 g/dL (3.4-5.0); Alkaline Phosphatase 107 U/L (46-116); Anion Gap 9.3; Aspartate Amino Transferase 18 U/L (15-37); BUN Creatinine Ratio 14.3; Bilirubin Total 0.3 mg/dL (0.2-1.0); Carbon Dioxide 27.5 mmol/L (21.0-32.0); Chloride 101 mmol/L (98-107); Creatine Kinase 51 U/L (26-192); Creatine Kinase MB 0.65 ng/mL (<=3.60); Estimated GFR (African America >60 (>=60); Estimated GFR (Non-African Ame >60 (>=60); Globulin 3.3 g/dL; Glucose 97 mg/dL (74-106); Myoglobin 31 ng/mL (9-82); Potassium 3.8 mmol/L (3.5-5.1); Sodium 134 mmol/L (136-145); Troponin I High Sensitivity 8.6 pg/mL (4.0-51.3)
[2023-01-12] MEDS: METOPROLOL TARTRATE 5 MG/5 ML VIAL IVP (18:51)
[2023-01-12] MEDS: HYDRALAZINE HCL 20 MG/ML VIAL 5 MG IVP (19:56)
== END 2023-01-12 20:43 | disposition home or self-care (01) ==
PROVIDERS: Personal Emergency Response Attendant; Emergency Provider Emergency Medicine; PCP Internal Medicine
DX: I10 Essential (primary) hypertension (principal); K21.9 Gastro-esophageal reflux disease without esophagitis; Z79.899 Other long term (current) drug therapy
CPT/HCPCS: 36415; 71045; 80053; 82550; 82553; 83874; 84484; 85025; 93005; 96374; 96375; 99285

== ENCOUNTER 2023-05-30 15:29 | Emergency (ER) | payer MEDICARE, SELFPAY ==
[2023-05-30 15:40] VITALS: BP 228/100; PULSE 81; RESP 20; TEMP 36.4; O2SAT 99; BMI 27.0
--- OUTSIDE RECORDS SUMMARY | 2023-05-30 16:03 | XMS_ITS | CCD ---
Author Organization [facility] Care Team Providers Care Final Inspector Paper Name Role Phone MIKEL LINO Primary Care Physician DR MIKEL LINO Primary Care Unavailable KEISHA, DR LIMA Consulting Unavailable KEISHA, DR LIMA Attending Unavailable KEISHA, DR LIMA Admitting Unavailable EUNICE, DR TEZ Ceja Consulting Unavailable KEISHA, DR LIMA Primary Care Unavailable SHOSHANA ODELL Admitting Unavailable SHOSHANA ODELL Attending Unavailable KEISHA, DR LIMA Primary Care Unavailable KANDIS LOPEZ Admitting Unavailable KANDIS LOPEZ Attending Unavailable KEISHA, DR LIMA Primary Care Unavailable FAVIAN FERNÁNDEZ Admitting Unavailable FAVIAN FERNÁNDEZ Attending Unavailable ELDER, DR MELLISSA Salter Consulting Unavailable JOLENE, FAVIAN Consulting Unavailable WEST, DR TEZ Ceja Consulting Unavailable KEISHA, DR LIMA Primary Care Unavailable KANDIS LOPEZ Admitting Unavailable JOHN, KANDIS Goodman Attending Unavailable KANDIS LOPEZ Consulting Unavailable Mikel Lino MD Primary Care Provider [phone] Jolene AGRICULTURAL E[employer]ICS TEACHER, Favian Vasquez Unavailable [phone] Mikel Lino MD Unavailable MIKEL LINO Attending Unavailable NINOSKA MONTEZ Attending Unavailable NINOSKA MONTEZ Attending Unavailable MIKEL LINO Attending Unavailable MIKEL LINO Attending Unavailable MIKEL LINO Attending Unavailable Alin ANGEL Attending Unavailable Allergies Allergy Classification Reported Allergen(s) Allergy Type Date of Onset Reaction(s) Facility (3 sources) Adhesive Tape; Translations: [Tape] Propensity to adverse reactions to substance Unknown Reaction [facility] (5 sources) Amoxicillin Drug Allergy 08-24-19 [facility] (5 sources) Nitrofurantoin Drug Allergy 08-24-19 [facility] (5 sources) Other Propensity to adverse reactions 10-14-19 23 Unknown [facility] Work Phone: (1 source) No Known Medication Allergies; Translations: [No Known Medication Allergies] Propensity to adverse reactions (disorder) [facility] Repository NEGATED: Highlighted row has been ruled out! (1 source) Drug allergy [facility] Lev NEGATED: Highlighted row has been ruled out! (1 source) Drug allergy [facility] Medications Current Medications Medication Drug Class(es) Dates Sig (Normalized) Sig (Original) ALPRAZolam 0.25 mg oral tablet (5 sources) Benzodiazepine Start: 08-23-2022 take 1 tablet by mouth every six hours for anxiety ALPRAZolam (Xanax) 0.25 MG tablet Indications: Generalized anxiety disorder (CMS/HCC) Take 1 tablet (0.25 mg) by mouth every 6 (six) hours if needed for anxiety. 30 tablet 0 08/23/2022 Active carvedilol 12.5 mg oral tablet (5 sources) alpha-Adrenergic Gabriel, beta-Adrenergic Gabriel Start: 02-05-2023 End: 02-05-2024 take 1 tablet by mouth in the morning carvedilol (Coreg) 12.5 MG tablet Indications: Benign essential hypertension (CMS/HCC) Take 1 tablet (12.5 mg) by mouth in the morning and 1 tablet (12.5 mg) in the evening. Take with meals. 60 tablet 11 02/05/2023 02/05/2024 Active ciprofloxacin 250 mg oral tablet (4 sources) Quinolone Antimicrobial Start: 04-11-2023 End: 04-16-2023 take 1 tablet by mouth in the morning ciprofloxacin (Cipro) 250 MG tablet Indications: Acute cystitis with hematuria Take 1 tablet (250 mg) by mouth in the morning and 1 tablet (250 mg) before bedtime. Do all this for 5 days. 10 tablet 0 04/11/2023 04/16/2023 Active Start: 03-07-2022 take 1 tablet by meryl th once daily Cipro 250 mg Tab 250 mg = 1 tab(s), Oral, Daily, Take 1 tablet the day before the procedure and 1 tablet after the procedure, # 2 tab(s), Refills(s) 0, Pharmacy: [facility]/pharmacy #[id number], 165, cm, 06/29/21 16:13:00 EDT, Height/Length Dosing, 80, kg, 06/29/21 16:13:00 EDT, W... Start Date: 03/07/22 Status: Ordered citalopram 10 mg oral tablet (7 sources) Serotonin Reuptake Inhibitor Start: 03-08-2023 End: 10-08-2023 take 1 tablet by mouth in the morning citalopram (CeleXA) 10 MG tablet Indications: Reactive depression (CMS/HCC) Take 1 tablet (10 mg) by mouth in the morning. 0 04/11/2023 10/08/2023 Active 1 ml denosumab 60 mg/ml prefilled syringe (5 sources) RANK Ligand Inhibitor Start: 02-15-2022 denosumab (Prolia) 60 MG/ML solution prefilled syringe as directed Subcutaneous 0 02/15/2022 Active desonide 0.5 mg/ml topical cream (5 sources) Corticosteroid desonide (DesOwe n) 0.05 % cream apply to itchy areas on face and neck topically bid prn for flares 0 Active diclofenac sodium 0.01 mg/mg topical gel (5 sources) Nonsteroidal Anti-inflammatory Drug diclofenac sodium 1 % gel every 8 (eight) hours. 0 Active esomeprazole 40 mg oral tablet (7 sources) Proton Pump Inhibitor Start: 09-22-2015 take 40 mg by mouth once daily Nexium 40 mg, Oral, Daily, Refills(s) 0, Control of stomach acid Start Date: 09/22/15 Status: Ordered take 1 capsule by mouth before m ealtime esomeprazole (NexIUM) [address] capsule Take 20 mg by mouth in the morning. Take before meals. Do not open capsule.. 0 Active estradiol 0.1 mg/g vaginal cream (2 sources) Start: 06-29-2021 estradiol 0.1 mg/g vaginal cream 1 gm, Vaginal, MonFri, # 42.5 gm, Refills(s) 5, Pharmacy: [facility]/pharmacy #[id number], 165, cm, 06/29/21 16:13:00 EDT, Height/Length Dosing, 80, kg, 06/29/21 16:13:00 EDT, Weight Dosing Start Date: 06/29/21 Status: Ordered fexofenadine hydrochloride 180 mg oral tablet (4 sources) Histamine-1 Receptor Antagonist Start: 04-09-2023 take 1 tablet by mouth once daily fexofenadine (Анна) 180 MG tablet Indications: Dermatographism Take 1 tablet daily, by mouth, 30 days 30 tablet 11 04/09/2023 Active fluticasone propionate 0.05 mg/actuat metered dose nasal spray (5 sources) Corticosteroid fluticasone (Flonase) 50 MCG/ACT nasal spray SPRAY 1 SPRAY INTO EACH NOSTRIL EVERY DAY FOR 30 DAYS for 60 0 Active hyoscyamine sulfate 0.125 mg sublingual tablet (5 sources) Start: 05-25-2022 hyoscyamine (Levsin) 0.125 MG SL tablet DISSOLVE 1 TABLET UNDER TONGUE EVERY 6 HOURS NEEDED FOR IRRITABLE BOWEL SYNDROME 0 05/25/2022 Active lisinopril 20 mg oral tablet (7 sources) Angiotensin Converting Enzyme Inhibitor Start: 01-09-2023 End: 01-09-2024 take 1 tablet by mouth in the morning lisinopril 20 MG tablet Indications: Benign essential hypertension (CMS/HCC) Take 1 tablet (20 mg) by mouth in the morning. 90 tablet 3 01/09/2023 01/09/2024 Active Start: 09-22-2015 take 20 mg by mouth once daily lisinopril 20 mg, Oral, Daily, Refills(s) 0, High blood pressure Start Date: 09/22/15 Status: Ordered tacrolimus 0.001 mg/mg topical ointment (4 sources) Calcineurin Inhibitor Immunosuppressant Start: 04-09-2023 tacrolimus (Protopic) 0.1 % ointment Indications: Other atopic dermatitis Apply to affected areas, twice a day when flared, 30 day supply 60 g 11 04/09/2023 Active triamcinolone acetonide 1 mg/ml topical cream (5 sources) Corticosteroid Start: 03-12-2023 triamcinolone (Kenalog) 0.1 % cream Indications: Other atopic dermatitis Apply to affected areas, up to twice a day when flared, do not use one the face, groin, or underarms, 30 day supply 454 g 11 03/12/2023 Active Completed/Discontinued Medications Medication Drug Class(es) Dates Sig (Normalized) Sig (Original) psyllium 525 mg oral capsule (2 sources) Start: 05-04-2020 take 8 capsules by mouth once daily Metamucil 525 mg oral capsule 1,050 mg = 2 cap(s), Oral, Daily, Take 2 hour apart from the other medications with at least 8 ounces of water, # 160 cap(s), Refills(s) 1, Pharmacy: [facility]/pharmacy #[id number], 165, cm, 05/04/20 8:44:00 EST, Height/Length Dosing, 88.2, kg, 05/04/20 8:44:00... Start Date: 05/04/20 Status: Ordered Problems Active Problems Problem Classification Problem Date Documented Da te Episodic/Chronic Anxiety disorders (5 sources) Generalized anxiety disorder; Translations: [Generalized anxiety disorder] Onset: 3 08-23-2022 Chronic Cancer of uterus (7 sources) History of malignant neoplasm of uterine body; Translations: [Personal history of malignant neoplasm of other parts of uterus] Onset: 3 08-31-2018 Episodic Esophageal disorders (7 sources) Gastroesophageal reflux disease; Translations: [Gastro-esophageal reflux disease without esophagitis] Onset: 3 08-31-2018 Chronic Essential hypertension (14 sources) Hypertensive disorder; Translations: [Benign essential hypertension] Onset: 3 Resolved: 4 08-31-2018 Chronic Genitourinary symptoms and ill-defined conditions (5 sources) Urinary incontinence; Translations: [Unspecified urinary incontinence] Onset: 3 08-23-2022 Chronic Genitourinary symptoms and ill-defined conditions (2 sources) H/O: urethral stricture 12-30-2019 Episodic Menopausal disorders (9 sources) Other primary ovarian failure; 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] Onset: 2 Chronic Mood disorders (7 sources) Depressive disorder; Translations: [Depression] Onset: 3 08-23-2022 Chronic Osteoarthritis (20 sources) Unilateral primary osteoarthritis, left knee; Translations: [Primary gonarthrosis, bilateral] Onset: 5 Resolved: 4 08-23-2022 Chronic Osteoporosis (6 sources) Age-related osteoporosis without current pathological fracture; Translations: [Osteoporosis] Onset: 2 06-21-2023 Chronic Other acquired deformities (5 sources) Contracture of joint of left ankle; Translations: [Contracture, left ankle] Onset: 3 08-23-2022 Chronic Other connective tissue disease (5 sources) Tendinitis of left posterior tibial tendon; Translations: [Posterior tibial tendinitis, left leg] Onset: 3 02-05-2023 Episodic Other diseases of bladder and urethra (11 sources) Urethral stricture; Translations: [Unspecified urethral stricture, female] Onset: 2 Episodic Other gastrointestinal disorders (5 sources) Irritable bowel syndrome with diarrhea; Translations: [Irritable bowel syndrome with diarrhea] Onset: 3 08-23-2022 Chronic Other hereditary and degenerative nervous system conditions (5 sources) Restless legs; Translations: [Restless legs syndrome] Onset: 3 08-23-2022 Chronic Other nervous system disorders (5 sources) Polyneuropathy; Translations: [Polyneuropathy, unspecified] Onset: 3 08-23-2022 Chronic Other nervous system disorders (5 sources) Inflammatory and toxic neuropathy; Translations: [Polyneuropathy due to other toxic agents] Onset: 0 02-05-2023 Chronic Other nutritional; endocrine; and metabolic disorders (5 sources) Obesity; Translations: [Obesity, unspecified] Onset: 3 08-23-2022 Chronic Other nutritional; endocrine; and metabolic disorders (5 sources) Obese class I; Translations: [Obesity, unspecified] Onset: 0 01-09-2023 Chronic Other upper respiratory infections (5 sources) Sinusitis; Translations: [Chronic sinusitis, unspecified] Onset: 3 08-23-2022 Chronic Spondylosis; intervertebral disc disorders; other back problems (10 sources) Cervical spondylosis; Translations: [Spondylosis without myelopathy or radiculopathy, cervical region] Onset: 3 08-23-2022 Chronic Urinary tract infections (9 sources) Chronic cystitis; Translations: [Other chronic cystitis without hematuria] Onset: 2 Chronic Urinary tract infections (2 sources) Acute cystitis; Translations: [Acute cystitis with hematuria] 04-11-2023 Episodic Past or Other Problems Problem Classification Problem Date Documented Da te Episodic/Chronic Abdominal pain (5 sources) Indigestion; Translations: [Epigastric pain] Onset: 08-23-2022 08-23-2022 Episodic Allergic reactions (5 sources) Eczema; Translations: [Dermatitis, unspecified] Onset: 08-23-2022 08-23-2022 Episodic Diabetes mellitus without complication (5 sources) Impaired glucose tolerance; Translations: [Impaired glucose tolerance (oral)] Onset: 08-23-2022 08-23-2022 Episodic Hemorrhoids (5 sources) External hemorrhoids; Translations: [Residual hemorrhoidal skin tags] Onset: 08-23-2022 08-23-2022 Episodic Mycoses (5 sources) Onychomycosis due to dermatophyte ; Translations: [Tinea unguium] Onset: 08-23-2022 08-23-2022 Episodic Other and unspecified benign neoplasm (5 sources) Neuroma; Translations: [Benign neoplasm of peripheral nerves and autonomic nervous system, unspecified] Onset: 08-23-2022 08-23-2022 Episodic Other and unspecified benign neoplasm (5 sources) History of adenomatous polyp of colon; Translations: [Personal history of colonic polyps] Onset: 08-25-2015 02-05-2023 Episodic Other bone disease and musculoskeletal deformities (5 sources) Osteopenia; Translations: [Other specified disorders of bone density and structure, unspecified site] Onset: 08-23-2022 Resolved: 03-08-2023 03-08-2023 Episodic Other connective tissue disease (4 sources) Posterior tibial tendinitis, left leg; Translations: [POSTERIOR TIBIAL TENDINITIS LT LEG] Onset: 09-23-2021 Episodic Other connective tissue disease (1 source) Posterior tibial tendinitis, right leg; Translations: [POSTERIOR TIBIAL TENDINITIS RT LEG] Onset: 09-26-2021 Episodic Other connective tissue disease (1 source) Pain in right foot; Translations: [PAIN IN RIGHT FOOT] Onset: 09-15-2021 Episodic Other connective tissue disease (1 source) Pain in left foot; Translations: [PAIN IN LEFT FOOT] Onset: 09-15-2021 Episodic Other connective tissue disease (4 sources) Plantar fascial fibromatosis; Translations: [PLANTAR FASCIAL FIBROMATOSIS] Onset: 04-04-2021 Episodic Other connective tissue disease (4 sources) Other specified enthesopathies of left lower limb, excluding foot; Translations: [OTH ENTHESOPATHIES LT LL EXCLD FT] Onset: 03-22-2021 Episodic Other connective tissue disease (5 sources) Fibromyalgia; Translations: [Fibromyalgia] Onset: 08-23-2022 08-23-2022 Episodic Other connective tissue disease (5 sources) Pes anserinus bursitis of left knee; Translations: [Other bursitis of knee, left knee] Onset: 08-23-2022 08-23-2022 Episodic Other female genital disorders (5 sources) Disorder of vagina; 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] Onset: 08-23-2022 08-23-2022 Episodic Other gastrointestinal disorders (5 sources) Chronic constipation; Translations: [Other constipation] Onset: 08-23-2022 08-23-2022 Episodic Other non-traumatic joint disorders (4 sources) Pain in right ankle and joints of right foot; Translations: [PAIN IN RIGHT ANKLE] Onset: 09-14-2021 Episodic Other non-traumatic joint disorders (1 source) Pain in left ankle and joints of left foot; Translations: [PAIN IN LEFT ANKLE] Onset: 09-15-2021 Episodic Other non-traumatic joint disorders (1 source) Pain in left knee; Translations: [PAIN IN LEFT KNEE] Onset: 04-07-2021 Episodic Other skin disorders (5 sources) Seborrheic keratosis; Translations: [Other seborrheic keratosis] Onset: 08-23-2022 08-23-2022 Episodic Residual codes; unclassified (5 sources) Bilateral lower limb edema; Translations: [Localized edema] Onset: 08-23-2022 08-23-2022 Episodic Residual codes; unclassified (5 sources) Insomnia; Translations: [Insomnia, unspecified] Onset: 08-23-2022 08-23-2022 Episodic Results Test Name Value Interpretation Reference Range Facility Reminderson 05-24-2023 Reminders - From: Camryn Fitch To: [facility] - Recalls Angel; Cc: Camryn Fitch; Sent: 11/17/2022 14:01:55 EDT Show up: 05/04/2023 14:01:00 EST Subject: cysto/UD Due Date/Time: 05/21/2023 14:01:00 EDT Reminder/Recall Patient is due in June 2023 for 6 month UD (possible cysto) l/m on home machine.LG [facility] GLYCOHEMOGLOBIN A1Con Glucose [Mass/Vol] 108 mg/dL [facility] HbA1c (Bld) [Mass fraction] 5.4 % 4.5 - 6.2 % [facility] Comment on above: ADA RECOMMENDED LIMI T 4.0 - 6.0 ADA THERAPEUTIC TARGET < 7.0 ACTION SUGGESTED > 7.0 [facility] Urinalysis macro (dipstick) panel (U)on 04-11-2023 Bilirubin, UA Negative Negative - 4(70) +++ mg/dL [facility] Blood, UA Positive Negative - 50 Oj/mcL [facility] Glucose, UA Negative Negative - 2000(110) ++++ mg/dL [facility] Ketones, UA Negative Negative - 160(16) ++++ mg/dL [facility] Leukocytes, UA Moderate Negative - 500+++ Nancy/mcL [facility] Nitrite, UA Negative Negative - Positive [facility] pH, UA 7.5 5 - 9 [facility] Protein, UA Negative Negative - 2000(20) ++++ mg/dL [facility] Spec Grav, UA 1.020 1 - 1.03 [facility] Urobilinogen, UA 0.2 0.2 - 12 mg/dL Critical access hospital Consent for Procedure/Surger yon 12-20-2022 Consent for Procedure/Surgery [id number] [facility] Ambulatory Visit Summaryon 1 Ambulatory Visit Summary YARELISJOSE Narciso :1935 Visit Date:12/19/2022 Ambulatory Visit Instructions Your Diagnosis Unspecified urethral stricture, female Chronic cystitis Tests Performed Urnls Dip Stick Auto w/o Microscopy POC 51066 Your Care Team Attending Physician - LONNY GUILLERMO, Alin Salter Primary Care Physician - KEISHA GUILLERMO, MIKEL Lobato This Is Your Medications List estradiol topical (estradiol 0.1 mg/g vaginal cream) Contact prescribing physician if questions or concerns ciprofloxacin (Cipro 250 mg Tab) esomeprazole (Nexium) lisinopril psyllium (Metamucil 525 mg oral capsule) Procedures Performed UD - Urethral dilatation (12/19/2022), Cystourethroscopy with dilation of urethral stricture (04/04/2022), Dilation of urethra (06/29/2021), UD - Urethral dilatation (10/12/2020), Colonoscopy (05/13/2020), UD - Urethral dilatation (12/30/2019), Urethral dilatation (04/01/2019), Urethral dilatation - female (09/10/2018), Cystoscopy (02/19/2018), Urodynamics (01/16/2018), UD - Urethral dilatation (08/17/2017), Cholecystectomy, Hysterectomy. Discharge Vitals Heart Rate (Peripheral) 68 Blood Pressure 138/72 Height 165 cm Height 65 in Weight 176 kg Weight 387.2 lb BMI 64.65 What to do next You Need to Schedule the Following Appointments Follow Up with LONNY GUILLERMO, NANCY Triana When: In 6 months Comments: w/IO UD Where: [facility] [address], [place] [address]- Medications What How Much When Why Instructions Unchanged estradiol topical (estradiol 0.1 mg/ g vaginal cream) 1 Gram Vaginal Sunday & Sunday Unchanged ciprofloxacin (Cipro 250 mg Tab) 1 Tablets By Mouth Every day Take 1 tablet the day before the procedure and 1 tablet after the procedure Contact prescribing physician if questions or concerns Unchanged esomeprazole (Nexium) 40 Milligram By Mouth Every day Contact prescribing physician if questions or concerns Unchanged lisinopril 20 Milligram By Mouth Every day Contact prescribing physician if questions or concerns Unchanged psyllium (Metamucil 525 mg oral capsule) 2 Capsules By Mouth Every day Hemorrhoids Take 2 hour apart from the other medications with at least 8 ounces of water Contact prescribing physician if questions or concerns Test Results Urnls Dip Stick Auto w/o Microscopy POC 00864 (12/19/2022) Bilirubin Urine Dipstick - Negative Blood Urine Dipstick - Negative Glucose Urine Dipstick - Negative Ketones Urine Dipstick - Negative Leukocytes Urine Dipstick - 1+ Small Nitrite Urine Dipstick - Negative Protein Urine Dipstick - Negative Specific [place] Urine Dipstick - 1.010 Urine Appearance Urine Dipstick - Clear Urine Color Urine Dipstick - Yellow Urobilinogen Urine Dipstick - Normal 0.2-1 EU/dl pH Urine Dipstick - 6 Medications and Immunizations Administered Given lidocaine Top 2% Gel w/Appl 11 mL, 11 mL, Topical. For: Unspecified urethral stricture, female, Chronic cystitis Allergies No Known Medication Allergies Tape (Unknown Reaction) Problems Ongoing - Any problem that you are currently receiving treatment for. Chronic cystitis Chronic GERD History of uterine cancer Hypertension Other urethral stricture, female Unspecified urethral stricture, female Historical - Any problem that you are no longer receiving treatment for. H/O urethral stricture Education Materials Urethral Stricture Urethral stricture is narrowing of the tube (urethra) that carries urine from the bladder out of the body. The urethra can become narrow due to scar tissue from an injury or infection. This can make it difficult to pass urine. In women, the urethra opens above the vaginal opening. In men, the urethra opens at the tip of the penis, and the urethra is much longer than it is in women. Because of the length of the male urethra, urethral stricture is much more common in men. This condition is treated with surgery. What are the causes? In both men and women, common causes of urethral stricture include: ? Urinary tract infection (UTI). ? Sexually transmitted infection (STI). ? Use of a tube placed into the urethra to drain urine from the bladder (urinary catheter). ? Urinary tract surgery. In men, common causes of urethral stricture include: ? A severe injury to the pelvis. ? Prostate surgery. ? Injury to the penis. In many cases, the cause of urethral stricture is not known. What increases the risk? You are more likely to develop this condition if you: ? Are male. Men who have had prostate surgery are at risk of developing this condition. ? Use a urinary catheter. ? Have had urinary tract surgery. What are the signs or symptoms? The main symptom of this condition is difficulty passing urine. This may cause decreased urine flow, dribbling, or spraying of urine. Other symptom of this condition may include: ? Frequent UTIs. ? Blood in the urine. ? (more content not included)... Normal [facility] Patient Educationon 12-20-19 23 Patient Education Urology Urethral Stricture Urethral stricture is narrowing of the tube (urethra) that carries urine from the bladder out of the body. The urethra can become narrow due to scar tissue from an injury or infection. This can make it difficult to pass urine. In women, the urethra opens above the vaginal opening. In men, the urethra opens at the tip of the penis, and the urethra is much longer than it is in women. Because of the length of the male urethra, urethral stricture is much more common in men. This condition is treated with surgery. What are the causes? In both men and women, common causes of urethral stricture include: ? Urinary tract infection (UTI). ? Sexually transmitted infection (STI). ? Use of a tube placed into the urethra to drain urine from the bladder (urinary catheter). ? Urinary tract surgery. In men, common causes of urethral stricture include: ? A severe injury to the pelvis. ? Prostate surgery. ? Injury to the penis. In many cases, the cause of urethral stricture is not known. What increases the risk? You are more likely to develop this condition if you: ? Are male. Men who have had prostate surgery are at risk of developing this condition. ? Use a urinary catheter. ? Have had urinary tract surgery. What are the signs or symptoms? The main symptom of this condition is difficulty passing urine. This may cause decreased urine flow, dribbling, or spraying of urine. Other symptom of this condition may include: ? Frequent UTIs. ? Blood in the urine. ? Pain when urinating. ? Swelling of the penis in men. ? Inability to pass urine (urinary obstruction). How is this diagnosed? This condition may be diagnosed based on: ? Your medical history and a physical exam. ? Urine tests to check for infection or bleeding. ? X-rays. ? Ultrasound. ? Retrograde urethrogram. This is a type of test in which dye is injected into the urethra and then an X-ray is taken. ? Urethroscopy. This is when a thin tube with a light and camera on the end (urethroscope) is used to look at the urethra. How is this treated? This condition is treated with surgery. The type of surgery that you have depends on the severity of your condition. You may have: ? Urethral dilation. In this procedure, the narrow part of the urethra is stretched open (dilated) with dilating instruments or a small balloon. ? Urethrotomy. In this procedure, a urethroscope is placed into the urethra, and the narrow part of the urethra is cut open with a surgical blade inserted through the urethroscope. ? Open surgery. In this procedure, an incision is made in the urethra, the narrow part is removed, and the urethra is reconstructed. Follow these instructions at home: ? Take anlq-urk-rdzvvkd and prescription medicines only as told by your health care provider. ? If you were prescribed an antibiotic medicine, take it as told by your health care provider. Do not stop taking the antibiotic even if you start to feel better. ? Drink enough fluid to keep your urine pale yellow. ? Keep all follow-up visits as told by your health care provider. This is important. Contact a health care provider if: ? You have signs of a urinary tract infection, such as: ? Frequent urination or passing small amounts of urine frequently. ? Needing to urinate urgently. ? Pain or burning with urination. ? Urine that smells bad or unusual. ? Cloudy urine. ? Pain in the lower abdomen or back. ? Trouble urinating. ? Blood in the urine. ? Vomiting or being less hungry than normal. ? Diarrhea or abdominal pain. ? Vaginal discharge, if you are female. ? Your symptoms are getting worse instead of better. Get help right away if: ? You cannot pass urine. ? You have a fever. ? You have swelling, bruising, or discoloration of your genital area. This includes the penis, scrotum, and inner thighs for men, and the outer genital organs (vulva) and inner thighs for women. ? You develop swelling in your legs. ? You have difficulty breathing. Summary ? Urethral stricture is narrowing of the tube (urethra) that carries urine from the bladder out of the body. The urethra can become narrow due to scar tissue from an injury or infection. ? This condition can make it difficult to pass urine. ? This condition is treated with surgery. The type of surgery that you have depends on the severity of your condition. ? Contact a health care provider if your symptoms get worse or you have signs of a urinary tract infection. This information is not intended to replace advice given to you by your health care provider. Make sure you discuss any questions you have with your health care provider. Document Revised: 12/27/2021 Document Reviewed: 12/27/2021 [employer] Patient Education ? 2022 [employer] [facility] Urology Office/Clinic Noteon 12-19-2022 Urology Office/Clinic Note Chief Complaint IO UD HPI Staff Pt here for UD. Estradiol cream 0.5 g 2x/week. History of Present Illness Tests reviewed: reviewed UA I have reviewed the previous health record information and history for this patient from . I have reviewed and verified the staff HPI to be accurate for this encounter. There have been no associated fever, chills, flank pain, or blood in the urine. Denies any urinary infections since last encounter. Review of Systems PHQ Score Initial Depression Screen Score: 0 ROS - Provider Constitutional: denies weight loss, denies hot flashes. Eyes: denies eye problems. Gastrointestinal: denies nausea, denies vomiting. Cardiovascular: denies chest pain or angina. Integumentary: no dryness Musculoskeletal: denies musculoskeletal symptoms. ENMT: denies otolaryngeal symptoms. Respiratory: no shortness of breath. Heme/Lymph: denies easy bleeding tendency, denies easy bruising tendency. Psychiatric: no confusion, no anxiety. Genitourinary: See HPI. Physical Exam Vitals & Measurements HR: 68(Peripheral) BP: 138/72 HT: 65 in HT: 165 cm WT: 176 kg WT: 387.2 lb BMI: 64.65 General Appearance: alert , no acute distress, well nourished, well developed female. Genitourinary: bladder nonpalpable, no flank pain. Procedure Operative Information Anesthesia Type: Local Procedure: Local Urethral Dilation Complications: None Surgical risks, benefits, details of the procedure have been explained to the patient. Full informed consent has been obtained. Intraoperative Information Prepped: Patient is brought back to the endoscopy suite. Patient is placed in modified dorso/lithotomy position. Patient prepped in the usual fashion with Betadine solution. 2% Xylocaine Jelly is placed per Urethra. The Urethra is: Tight The Urethra was dilated to: 20-30 Maori with sounds. Specimens Removed: None Postoperative Information Patient is discharged home. Follow up arranged. Assessment/Plan 1. Unspecified urethral stricture, female (N35.92: Unspecified urethral stricture, female) Last cysto/UD done IO on 04/04/22. Pt had IO UD today w/o complications. Follow up in 6 mos w/ IO UD. All questions/concerns were discussed. Pt to call the office if she encounters any issues prior. Pt acknowledges understanding. 2. Chronic cystitis (N30.20: Other chronic cystitis without hematuria) Pt currently using Estradiol cream 0.5 g 2x/week. Denies any infections since last encounter. -Will send refill for Estradiol cream to pharmacy on file. Follow-up With When Contact Information LONNY GUILLERMO, Alin Salter, NANCY In 6 months [facility] [address], [place] [address]- Additional Instructions: w/IO UD Patient Education Urethral Stricture I, Lolly Carlisle , personally scribed for Dr. Angel on 12/19/2022 12:58:11. . Documentation recorded by the scribe, Lolly Carlisle, accurately reflects the services(s) I performed and decisions made by me. Problem List/Past Medical History Ongoing Chronic cystitis Chronic GERD History of uterine cancer Hypertension Other urethral stricture, female Unspecified urethral stricture, female Historical H/O urethral stricture Procedure/Surgical History UD - Urethral dilatation (12/19/2022), Cystourethroscopy with dilation of urethral stricture (04/04/2022), Dilation of urethra (06/29/2021), UD - Urethral dilatation (10/12/2020), Colonoscopy (05/13/2020), UD - Urethral dilatation (12/30/2019), Urethral dilatation (04/01/2019), Urethral dilatation - female (09/10/2018), Cystoscopy (02/19/2018), Urodynamics (01/16/2018), UD - Urethral dilatation (08/17/2017), Cholecystectomy, Hysterectomy. Medications Cipro 250 mg Tab, 250 mg= 1 tab(s), Oral, Daily estradiol 0.1 mg/g vaginal cream, 1 gm, Vaginal, MonFri, 5 refills lisinopril, 20 mg, Oral, Daily Metamucil 525 mg oral capsule, 1050 mg= 2 cap(s), Oral, Daily, 1 refills Nexium, 40 mg, Oral, Daily Allergies No Known Medication Allergies Tape (Unknown Reaction) Social History Alcohol - Denies Alcohol Use, 09/10/2018 Substance Abuse - Denies Substance Abuse, 09/10/2018 Tobacco - Denies Tobacco Use, 09/10/2018 Never (less than 100 in lifetime) Tobacco Use:. Never Smokeless Tobacco Use:., 12/19/2022 Never (less than 100 in lifetime) Tobacco Use:. Never Smokeless Tobacco Use:., 09/10/2018 Family History Heart failure: Mother. Stroke: Father. Immunizations Vaccine Date Status Comments influenza virus vaccine, inactivated 12/28/2021 Recorded influenza virus vaccine, inactivated 02/09/2021 Recorded influenza virus vaccine, inactivated 01/26/2021 Recorded SARS-CoV-2 (COVID-19) mRNA BNT-162b2 vax 12/07/2020 Recorded 2022-04-04: [id number] SARS-CoV-2 (COVID-19) mRNA BNT-162b2 vax 04/21/2020 Recorded SARS-CoV-2 (COVID-19) mRNA BNT-162b2 vax 03/29/2020 Recorded SARS-CoV-2 (COVID-19) mRNA BNT-162b2 vax 20 (more content not included)... Normal [facility] Comment on above: Result Comment: Elec tronically Signed By: Alin ANGEL MD\.br\Date and Time Signed: 12/19/22 12:59 EDT\.br\Electronically Co-Signed By: Lolly Carlisle\.br\Date and Time Co-Signed: 12/19/22 12:58 EDT XR DEXA BONE DENSITYon 02-14 XR DEXA BONE DENSITY EXAMINATION: XR DEX A BONE DENSITY, 02/14/2022 9:59 AM EST HISTORY: Adult health examination COMPARISON: DEXA bone densitometry 04/14/2019 TECHNIQUE: Dual-energy X-ray absorptiometry (DEXA) bone density study performed for the axial skeleton. FINDINGS: SPINE ANALYSIS: Average bone mineral density is 1.088 g/cm2. T-score (standard deviation relative to young adult mean): -0.9 . +2.3% change since prior study. HIP ANALYSIS: Lowest bone mineral density is within the left femoral neck, 0.692 g/cm2. T-score (standard deviation relative to young adult mean): -2.5 . -3.8% change since prior study. IMPRESSION: [employer] Classification: Osteoporosis - High Fracture Risk Electronically authenticated by: MELLISSA FRIEDMAN Date: 2022-02-14 10:37 Normal [facility] XR FOOT GOPAL MIN 3 VIEWSon XR FOOT GOPAL MIN 3 VIEWS EXAMINATION: XR FOOT GOPAL MIN 3 VIEWS, XR ANKLE GOPAL MIN 3 VIEWS HISTORY: Pain in both feet COMPARISON: 11/11/2020 FINDINGS: RIGHT FINDINGS: BONES: No acute fracture or dislocation. Stable forefoot valgus. Mild degenerative changes. SOFT TISSUES: Negative. No visible soft tissue swelling. OTHER: Negative. LEFT FINDINGS: BONES: No acute fracture or dislocation. Stable forefoot valgus. Mild degenerative changes. SOFT TISSUES: Negative. No visible soft tissue swelling. OTHER: Negative. IMPRESSION: RIGHT CONCLUSION: Mild stable degenerative changes LEFT CONCLUSION: Mild stable degenerative changes Electronically authenticated by: TEZ DAWSON Date: 2021-09-14 19:24 Normal [facility] Complete Blood Counton 06-29 Erythrocyte distribution width (RBC) [Ratio] 12.7 % Normal 11.0-15.0 [facility] Worker Comment on above: Performed By: #### M G, TSH, CBC, CMP #### [facility] [address], [place] [id number] Hematocrit (Bld) [Volume fraction] 36.4 % Normal 35.0-47.0 [facility] Worker Comment on above: Performed By: #### M G, TSH, CBC, CMP #### [facility] [address], [place] [id number] Hemoglobin (Bld) [Mass/Vol] 12.2 g/dL Normal 11.6-15.5 [facility] Worker Comment on above: Performed By: #### M G, TSH, CBC, CMP #### [facility] [address], [place] [id number] MCH (RBC) [Entitic mass] 31.4 pg Normal 27.0-33.0 [facility] Specialist Comment on above: Performed By: #### M G, TSH, CBC, CMP #### [facility] [address], [place] [id number] MCHC (RBC) [Mass/Vol] 33.5 g/dL Normal 32.0-36.0 [facility] Specialist Comment on above: Performed By: #### M G, TSH, CBC, CMP #### [facility] [address], [place] [id number] MCV (RBC) [Entitic vol] 94 fL Normal 80-100 [facility] Specialist Comment on above: Performed By: #### M G, TSH, CBC, CMP #### [facility] [address], [place] [id number] Platelet mean volume (Bld) [Entitic vol] 10.30 fL Normal 7.50-12.50 [facility] Specialist Comment on above: Performed By: #### M G, TSH, CBC, CMP #### [facility] [address] [place], [place] [id number] Platelets (Bld) [#/Vol] 297 10*3/uL Normal 140-400 [facility] Worker Comment on above: Performed By: #### M G, TSH, CBC, CMP #### [facility] [address], [place] [id number] RBC (Bld) [#/Vol] 3.89 10*6/uL Low 3.90-5.20 [facility] [employer] Worker Comment on above: Performed By: #### M G, TSH, CBC, CMP #### [facility] [address], [place] [id number] RDW-SD 43.8 fL Normal 37.0-50.0 [facility] Specialist Comment on above: Performed By: #### M G, TSH, CBC, CMP #### [facility] [address], [place] [id number] WBC (Bld) [#/Vol] 6.9 10*3/uL Normal 3.8-11.0 [facility] [employer] Worker Comment on above: Performed By: #### M G, TSH, CBC, CMP #### [facility] [address], [place] [id number] Comprehensive Metabolic Pane bry 06-29-2021 Albumin [Mass/Vol] 4.4 g/dL Normal 3.6-5.1 [facility] Worker Comment on above: Performed By: #### M G, TSH, CBC, CMP #### [facility] [address], [place] [id number] Albumin/Globulin [Mass ratio] 2.1 {ratio} Normal 1.0-2.5 [facility] Comment on above: Performed By: #### M G, TSH, CBC, CMP #### [facility] [address], [place] [id number] ALP [Catalytic activity/Vol] 95 U/L Normal 35-119 [facility] Specialist Comment on above: Performed By: #### M G, TSH, CBC, CMP #### [facility] [address], [place] [id number] ALT [Catalytic activity/Vol] 9 U/L Normal 6-33 [facility] Specialist Comment on above: Result Comment: 02/02 Female reference range changed. Performed By: #### M G, TSH, CBC, CMP #### [facility] [address], [place] [id number] Anion gap [Moles/Vol] 15 mmol/L Normal 12-20 [facility] Specialist Comment on above: Result Comment: Effe ctive 03/10/2019 reference range changed. Performed By: #### M G, TSH, CBC, CMP #### [facility] [address], [place] [id number] AST [Catalytic activity/Vol] 13 U/L Normal 9-34 [facility] Comment on above: Performed By: #### M G, TSH, CBC, CMP #### [facility] [address] [place], [place] [id number] Bilirubin [Mass/Vol] 0.40 mg/dL Normal 0.30-1.20 [facility] Comment on above: Performed By: #### M G, TSH, CBC, CMP #### [facility] [address], [place] [id number] BUN/CREA 21 Ratio Normal 6-22 [facility] Comment on above: Performed By: #### M G, TSH, CBC, CMP #### [facility] [address] [place], [place] [id number] Calcium [Mass/Vol] 9.9 mg/dL Normal 8.6-10.2 [facility] Comment on above: Performed By: #### M G, TSH, CBC, CMP #### [facility] [address] [facility] [place] [id number] Chloride [Moles/Vol] 105 mmol/L Normal 98-107 [facility] Comment on above: Performed By: #### M G, TSH, CBC, CMP #### [facility] [address] [facility] [place] [id number] CO2 [Moles/Vol] 25 mmol/L Normal 20-31 [facility] Comment on above: Performed By: #### M G, TSH, CBC, CMP #### [facility] [address] [facility] [id number] Creatinine [Mass/Vol] 0.6 mg/dL Normal 0.6-1.4 [facility] Specialist Comment on above: Performed By: #### M G, TSH, CBC, CMP #### [facility] [address] [facility] [id number] eGFRAA 113 mL/min/1.73m2 Normal >60 [facility] Comment on above: Performed By: #### M G, TSH, CBC, CMP #### [facility] [address] [facility] [id number] eGFRNAA 93 mL/min/1.73m2 Normal >60 [facility] Comment on above: Performed By: #### M G, TSH, CBC, CMP #### [facility] [address] [facility] [id number] Globulin (S) [Mass/Vol] 2.1 g/dL Normal 1.9-3.7 [facility] Comment on above: Performed By: #### M G, TSH, CBC, CMP #### [facility] [address] [facility] [id number] Glucose [Mass/Vol] 92 mg/dL Normal 65-99 [facility] Comment on above: Result Comment: For FASTING Glucose --- ADA reference ranges: Normal 65-99 mg/dl Prediabetes 100-125 Diabetes >/= 126 Performed By: #### M G, TSH, CBC, CMP #### [facility] [address] [facility] [id number] Potassium [Moles/Vol] 4.5 mmol/L Normal 3.5-5.5 [facility] Worker Comment on above: Performed By: #### M G, TSH, CBC, CMP #### [facility] [address] [place], [place] [id number] Protein [Mass/Vol] 6.5 g/dL Normal 6.1-8.1 Katy hawley [place] [employer] Worker Comment on above: Performed By: #### M G, TSH, CBC, CMP #### [facility] [address] [place], [place] [id number] Sodium [Moles/Vol] 141 mmol/L Normal 135-146 Katy hawley [place] [employer] Worker Comment on above: Performed By: #### M G, TSH, CBC, CMP #### [facility] [address], [place] [id number] Urea nitrogen [Mass/Vol] 13 mg/dL Normal 7-25 [facility] Worker Comment on above: Performed By: #### M G, TSH, CBC, CMP #### [facility] [address] [place], [place] [id number] Magnesiumon 06-29-2021 Magnesium [Mass/Vol] 2.0 mg/dL Normal 1.5-2.3 [facility] Comment on above: Performed By: #### M G, TSH, CBC, CMP #### [facility] [address] [place], [place] [id number] TSHon 06-29-2021 TSH 1.750 uIU/mL Normal 0.400-4.500 [facility] Worker Comment on above: Performed By: #### M G, TSH, CBC, CMP #### [facility] [address] [place], [place] [id number] Vital Signs Date Time Vital Sign Value Performing Clinician Facility 04-11-2023 10:[id number] Body height 160 cm Mikel Lino MD Work Phone: [facility] 04-11-2023 10:31-0500 Body mass index (BMI) [Ratio] 29.41 kg/m2 Mikel Lino MD Work Phone: [facility] 04-11-2023 10:31-0500 Body weight 75.3 kg Mikel Lino MD Work Phone: [facility] 04-11-2023 10:31-0500 Diastolic blood pressure 86 mm[Hg] Mikel Lino MD Work Phone: [facility] 04-11-2023 10:31-0500 Heart rate 81 /min Mikel Lino MD Work Phone: [facility] 04-11-2023 10:31-0500 SaO2% (BldA) [Mass fraction] 96 % Mikel Lino MD Work Phone: [facility] 04-11-2023 10:31-0500 Systolic blood pressure 160 mm[Hg] Mikel Lino MD Work Phone: [facility] 04-04-2022 13:40-0500 Blood Pressure Location Alin ANGEL [facility] 04-04-2022 13:40-0500 Diastolic blood pressure 86 mm[Hg] Alin ANGEL [facility] 04-04-2022 13:40-0500 Heart rate 86 /min Alin ANGEL [facility] 04-04-2022 13:40-0500 Systolic blood pressure 155 mm[Hg] Alin ANGEL [facility] 06-29-2021 15:57-0400 Blood Pressure Location Alin ANGEL [facility] 06-29-2021 15:57-0400 Diastolic blood pressure 80 mm[Hg] Alin ANGEL [facility] 06-29-2021 15:57-0400 Heart rate 78 /min Alin ANGEL [facility] 06-29-2021 15:57-0400 Respiratory rate 16 /min Alin ANGEL [facility] 06-29-2021 15:57-0400 Systolic blood pressure 139 mm[Hg] Alin ANGEL [facility] Encounters Encounter Date Encounter Type Care Provider Facility Start: 04-11-2023 Bamboo OnVantagemendez Qureshi Work Phone: [facility] Start: 04-11-2023 Bamomayrao jr Qureshi Work Phone: [facility] Start: 04-11-2023 Clinisync Result Encounter Generic External Data Provider [facility] Unsolicited Start: 04-11-2023 End: 04-11-2023 ambulatory MIKEL LINO Not Available Start: 04-11-2023 End: 04-11-2023 Office outpatient visit 25 minutes Mikel Lino MD Work Phone: [facility] Comment on above: Acute cystitis with hematuria (Primary Dx); Reactive depression (CMS/HCC); Benign essential hypertension (CMS/HCC) Start: 04-09-2023 Rasheed michele MD Work Phone: [facility] Start: 04-09-2023 Rasheed michele MD Work Phone: [facility] Start: 04-09-2023 End: 04-09-2023 ambulatory NINOSKA A PETITTI Not Available Start: 03-12-2023 End: 03-12-2023 ambulatory NINOSKA A PETITTI Not Available Start: 03-08-2023 End: 03-08-2023 ambulatory MIKEL LINO Not Available Start: 02-05-2023 End: 02-05-2023 ambulatory MIKEL LINO Not Available Start: 01-22-2023 End: 01-22-2023 ambulatory MIKEL LINO Not Available Start: 12-19-2022 End: 12-20-2022 ambulatory Alincosta ANGEL Facility:[facility] Start: 04-04-2022 End: 04-04-2022 Patient encounter procedure Alin ANGEL [facility] [place] Start: 02-14-2022 End: 02-15-[address] MIKEL LINO Facility:[facility] Start: 09-23-2021 End: 10-22-[address] MIKEL LINO Facility:[facility] Start: 09-14-2021 End: 09-15-[address] TEZ DAWSON Facility:[facility] Start: 06-29-2021 End: 06-29-2021 Patient encounter procedure Alin Joie ANGEL [facility] [place] Start: 04-04-2021 End: 04-11-[address] MIKEL LINO Facility:[facility] Start: 03-22-2021 End: 03-23-[address] MIKEL LINO Facility:[facility] Procedures Date Procedure Procedure Detail Performing Clinician Start: 04-11-2023 Urnls dip stick/tabl et rgnt non-auto w/o micrscp Mikel Lino MD Work Phone: Start: 04-11-2023 TB GLYCOHEMOGLOBIN A1C Generic External Data Provider Start: 04-04-2022 Cystourethroscopy wi dilation of urethral stricture Alin LONNY Start: 06-29-2021 Dilation of urethra Ivelisse skelton ANGEL Start: 10-12-2020 Dilation of urethra Ivelisse skelton ANGEL Start: 05-13-2020 Colonoscopy Alin ALBERT Start: 12-30-2019 Dilation of urethra Ivelisse costa LONNY Start: 04-01-2019 Dilation of urethra Ivelisse costa LONNY Start: 09-10-2018 Urethral dilatation - female Alin ANGEL Start: 02-19-2018 Cystoscopy Alin ALBERT Comment on above: with Urethral dilati on* 02/04/13, 02/12/2018 Start: 01-16-2018 Urodynamic studies Ryan ANGEL Comment on above: 01/01/2013, 01/17/20 18 Start: 08-17-2017 Dilation of urethra Ivelisse NAGEL Comment on above: 08/26/2013, 02/18/20 14, 08/04/2014, 02/02/2015, 08/10/2015, 03/08/2016, 08/08/2016, 02/13/2017, 08/07/2017 Cholecystectomy Alin QASIM MCGRATH Hysterectomy Alin ANGEL Plan of Treatment Date Care Activity Detail Author Start: 03-08-2024 Medicare Annual Well ness (AWV) Medicare Annual Wellness (AWV) [facility] Start: 06-15-2023 End: 06-15-2023 Patient encounter procedure 06/15/2023 9:30 AM EDT Office Visit [facility] [address] [facility] [address] [place] [address] Mikel Lino MD [address] [facility] [address] [place] [address] [facility] Start: 05-08-2023 End: 05-08-2023 Patient encounter procedure 05/08/2023 10:25 AM EST Office Visit [facility] [address] [place] [id number] Ninoska Montez MD [address] [place] [address] [facility] Start: 04-11-2023 End: 04-11-2023 Patient encounter procedure [facility] Comment on above: Arrived Start: 04-09-2023 End: 04-09-2023 Patient encounter procedure 04/09/2023 10:45 AM EST Office Visit [facility] [address] [place] [address] Ninoska Montez MD [address] [place] [address] Arrived [facility] Comment on above: Arrived Start: 11-03-2022 Influenza vaccination Influenza Vacc ine (#1) [facility] Start: 04-02-2020 Pneumococcal Vaccine : 65+ Years (2 - PCV) Pneumococcal Vaccine: 65+ Years (2 - PCV) [facility] Immunizations Immunization Date Immunization Notes Care Provider Fa cility 04-06-2022 zoster vaccine recombinant Ninoska Montez MD Work Phone: [facility] 12-28-2021 influenza virus vacc ine, unspecified formulation Alin ANGEL [facility] 12-28-2021 Influenza, High-dose Seasonal, Quadrivalent, Preservative Free Ninoksa Montez MD Work Phone: [facility] 02-09-2021 influenza virus vacc ine, unspecified formulation Alin ANGEL [facility] 02-09-2021 influenza, high dose seasonal, preservative-free Ninoska Montez MD Work Phone: [facility] 01-26-2021 influenza virus vacc ine, unspecified formulation Alin ANGEL [facility] 01-26-2021 influenza, high dose seasonal, preservative-free Ninoska Montez MD Work Phone: [facility] 12-07-2020 SARS-CoV-2 (COVID-19 ) mRNA BNT-162b2 vax Alin ANGEL [facility] Comment on above: Result Comment: 2022: [id number] 06-29-2020 diphtheria, tetanus toxoids and pertussis vaccine Ninoska Montez MD Work Phone: [facility] 04-21-2020 SARS-CoV-2 (COVID-19 ) mRNA BNT-162b2 vax Alin ANGEL [facility] 03-29-2020 SARS-CoV-2 (COVID-19 ) mRNA BNT-162b2 vax Alin ANGEL [facility] 03-05-2020 SARS-CoV-2 (COVID-19 ) mRNA BNT-162b2 vax Alin ANGEL [facility] Comment on above: Result Comment: has had 3 shots to date 01-12-2020 influenza virus vacc ine, unspecified formulation Alin ANGEL [facility] 01-12-2020 Seasonal trivalent influenza vaccine, adjuvanted, preservative free Ninoska Montez MD Work Phone: [facility] 04-02-2019 pneumococcal polysaccharide vaccine, 23 valent Alin ANGEL [facility] 02-05-2019 influenza virus vacc ine, unspecified formulation Alin ANGEL [facility] 02-05-2019 influenza, high dose seasonal, preservative-free Ninoska Montez MD Work Phone: [facility] 01-03-2019 influenza virus vacc ine, live, attenuated, for intranasal use Alin ANGEL [facility] 01-09-2018 influenza virus vacc ine, unspecified formulation Alin ANGEL [facility] 01-09-2018 Influenza, High-dose Seasonal, Quadrivalent, Preservative Free Ninoska Montez MD Work Phone: [facility] 01-03-2017 influenza virus vacc ine, unspecified formulation Alin ANGEL [facility] 01-03-2017 influenza, high dose seasonal, preservative-free Ninoska Montez MD Work Phone: [facility] 01-11-2016 influenza virus vacc ine, unspecified formulation Alin ANGEL [facility] 01-11-2016 influenza, high dose seasonal, preservative-free Ninoska Montez MD Work Phone: [facility] 11-26-2008 seasonal influenza, intradermal, preservative free Ninoska Montez MD Work Phone: [facility] Payers Date Payer Category Payer Unknown [facility] [id number] 2022-Present [address] [facility] [place] [address] [id number] 2002 Medicare MEDICARE MEDICAR E PART B [id number] 2002-[place] [address] Medicare [id number] 1959 Medicare [id number] 1959 Unknown [id number] 1937 Unknown [id number] 1937 Unknown [id number] 1937 Unknown [id number] 1937 Unknown [id number] 1937 Unknown [id number] 1937 Unknown [id number] [id number] 9 1937 Unknown [id number] [id number] 9 1937 Unknown [id number] [id number] 9 1937 Unknown [id number] [id number] 9 1937 Unknown [id number] 9 1937 Unknown [id number] 9 1937 Unknown [id number] Social History Date Type Detail Facility Start: 10-12-2020 End: 08-23-2022 Tobacco smoking status Never smoked tobacco (finding) [facility] Tobacco smoking status Never [facility] [place] Start: 03-08-2023 End: 03-12-2023 Sex Assigned At Female [facility] [place] [employer] Start: 08-23-2022 Tobacco use and exposure Smokeless tobacco non-user [facility] Start: 03-12-2023 End: 04-11-2023 Alcohol intake Lifetime non-drinker (finding) [facility] Start: 03-08-2023 End: 03-12-2023 History of Social function [facility] Start: 1935 Sex Assigned At Not on file N [facility] Functional Status Date Assessment Result Facility 04-04-2022 Functional Status N/A [facility] History of Present illness Narrative 04-11-2023 Mikel Lino MD - 04/11/2023 10:45 AM EST Note Date & Type Note Facility 04-11-2023 History of Presen t illness Narrative Images from the original note were not included. HPI would like checked for UTI Additional comments: Pt would like UA ran to make sure she does not have UTI states she has mild dysuria Last edited by Negrita Kelly LPN on 04/11/2023 10:43 AM. Subjective Patient ID: Jose Salazar is a 88 y.o. female who presents for Hypertension, Depression, and would like checked for UTI (Pt would like UA ran to make sure she does not have UTI states she has mild dysuria). Hypertension Patient is here for follow-up of elevated blood pressure. Blood pressure is not well controlled at home. Cardiac symptoms: none. Patient denies chest pain, claudication, irregular heart beat, lower extremity edema, near-syncope, orthopnea, palpitations, paroxysmal nocturnal dyspnea, syncope, and tachypnea. Cardiovascular risk factors: advanced age (older than 55 for men, 65 for women) and hypertension. Pt did NOT start celexa she was nervous to start it with the skin issues she was having at the time--pt ? If she should take it Hypertension Pertinent negatives include no chest pain, palpitations or shortness of breath. DepressionPatient is not experiencing: palpitations and shortness of breath. Current Outpatient Medications on File Prior to Visit Medication Sig Dispense Refill carvedilol (Coreg) 12.5 MG tablet Take 1 tablet (12.5 mg) by mouth in the morning and 1 tablet (12.5 mg) in the evening. Take with meals. 60 tablet 11 denosumab (Prolia) 60 MG/ML solution prefilled syringe as directed Subcutaneous desonide (DesOwen) 0.05 % cream apply to itchy areas on face and neck topically bid prn for flares diclofenac sodium 1 % gel every 8 (eight) hours. esomeprazole (NexIUM) [address] capsule Take 20 mg by mouth in the morning. Take before meals. Do not open capsule.. fexofenadine (Анна) 180 MG tablet Take 1 tablet daily, by mouth, 30 days 30 tablet 11 fluticasone (Flonase) 50 MCG/ACT nasal spray SPRAY 1 SPRAY INTO EACH NOSTRIL EVERY DAY FOR 30 DAYS for 60 hyoscyamine (Levsin) 0.125 MG SL tablet DISSOLVE 1 TABLET UNDER TONGUE EVERY 6 HOURS NEEDED FOR IRRITABLE BOWEL SYNDROME lisinopril 20 MG tablet Take 1 tablet (20 mg) by mouth in the morning. 90 tablet 3 tacrolimus (Protopic) 0.1 % ointment Apply to affected areas, twice a day when flared, 30 day supply 60 g 11 triamcinolone (Kenalog) 0.1 % cream Apply to affected areas, up to twice a day when flared, do not use one the face, groin, or underarms, 30 day supply 454 g 11 [DISCONTINUED] citalopram (CeleXA) 10 MG tablet Take 1 tablet (10 mg) by mouth in the morning. 30 tablet 5 ALPRAZolam (Xanax) 0.25 MG tablet Take 1 tablet (0.25 mg) by mouth every 6 (six) hours if needed for anxiety. (Patient not taking: Reported on 04/09/2023) 30 tablet 0 No current facility-administered medications on file prior to visit. Allergies Allergen Reactions Amoxicillin Other Reaction(s): GI problems Nitrofurantoin Other Reaction(s): GI upset Other Unknown Tape Social History Tobacco Use Smoking status: Never Smokeless tobacco: Never Substance Use Topics Alcohol use: Never Drug use: Never Family History Problem Relation Name Age of Onset Heart disease Mother Arthritis Mother Hypertension Father Past Medical History: Diagnosis Date Arthritis COVID-19 vaccine administered [employer] x2 Eczema Gallbladder disease GERD (gastroesophageal reflux disease) Neuroma Obesity (BMI 30.0-34.9) OM (onychomycosis) Past Surgical History: Procedure Laterality Date CHOLECYSTECTOMY COLONOSCOPY 05/13/2020 HYSTERECTOMY Visit Vitals BP 160/86 Pulse 81 Ht 5' 3 Wt 166 lb SpO2 96% BMI 29.41 kg/m Smoking Status Never BSA 1.83 m Review of Systems Respiratory: Negative for shortness of breath. Cardiovascular: Negative for chest pain and palpitations. Genitourinary: Positive for dysuria and frequency. Psychiatric/Behavioral: Positive for depression. Objective Physical Exam Constitutional: General: She is not in acute distress. Appearance: Normal appearance. She is well-developed. HENT: Head: Normocephalic and atraumatic. Eyes: General: No scleral icterus. Conjunctiva/sclera: Conjunctivae normal. Cardiovascular: Rate and Rhythm: Normal rate and regular rhythm. Heart sounds: Normal heart sounds. No murmur heard. Pulmonary: Effort: Pulmonary effort is normal. No respiratory distress. Breath sounds: Normal breath sounds. No wheezing, rhonchi or rales. Skin: General: Skin is warm and dry. Findings: Erythema and rash present. Comments: Area of rash Neurological: General: No focal deficit present. Mental Status: She is alert and oriented to person, place, and time. Psychiatric: Mood and Affect: Mood is depressed. Behavior: Behavior normal. Assessment/Plan Diagnoses and all orders for this visit: Acute cystitis with hematuria - ciprofloxacin (Cipro) 250 MG tablet; Take 1 tablet (250 mg) by mouth in the morning and 1 tablet (250 mg) before bedtime. Do all this for 5 days. Reactive depression (CMS/HCC) - citalopram (CeleXA) 10 MG tablet; Take 1 tablet (10 mg) by mouth in the morning. Benign essential hypertension (CMS/HCC) Follow up in about 2 months (around 06/10/2023) for Routine F/U. documented in this encounter [facility] Discharge instructions 04-04-2022 Note Date & Type Note Facility 04-04-2022 Hospital Discharg e instructions Patient Education 04/04/2022 10:02:47 Urethral Stricture Urethral Stricture Urethral stricture is narrowing of the tube (urethra) that carries urine from the bladder out of the body. The urethra can become narrow due to scar tissue from an injury or infection. This can make it difficult to pass urine. In women, the urethra opens above the vaginal opening. In men, the urethra opens at the tip of the penis, and the urethra is much longer than it is in women. Because of the length of the male urethra, urethral stricture is much more common in men. This condition is treated with surgery. What are the causes? In both men and women, common causes of urethral stricture include: Urinary tract infection (UTI). Sexually transmitted infection (STI). Use of a tube placed into the urethra to drain urine from the bladder (urinary catheter). Urinary tract surgery. In men, common causes of urethral stricture include: A severe injury to the pelvis. Prostate surgery. Injury to the penis. In many cases, the cause of urethral stricture is not known. What increases the risk? You are more likely to develop this condition if you: Are male. Men who have had prostate surgery are at risk of developing this condition. Use a urinary catheter. Have had urinary tract surgery. What are the signs or symptoms? The main symptom of this condition is difficulty passing urine. This may cause decreased urine flow, dribbling, or spraying of urine. Other symptom of this condition may include: Frequent UTIs. Blood in the urine. Pain when urinating. Swelling of the penis in men. Inability to pass urine (urinary obstruction). How is this diagnosed? This condition may be diagnosed based on: Your medical history and a physical exam. Urine tests to check for infection or bleeding. X-rays. Ultrasound. Retrograde urethrogram. This is a type of test in which dye is injected into the urethra and then an X-ray is taken. Urethroscopy. This is when a thin tube with a light and camera on the end (urethroscope) is used to look at the urethra. How is this treated? This condition is treated with surgery. The type of surgery that you have depends on the severity of your condition. You may have: Urethral dilation. In this procedure, the narrow part of the urethra is stretched open (dilated) with dilating instruments or a small balloon. Urethrotomy. In this procedure, a urethroscope is placed into the urethra, and the narrow part of the urethra is cut open with a surgical blade inserted through the urethroscope. Open surgery. In this procedure, an incision is made in the urethra, the narrow part is removed, and the urethra is reconstructed. Follow these instructions at home: Take [id number] and prescription medicines only as told by your health care provider. If you were prescribed an antibiotic medicine, take it as told by your health care provider. Do not stop taking the antibiotic even if you start to feel better. Drink enough fluid to keep your urine pale yellow. Keep all follow-up visits as told by your health care provider. This is important. Contact a health care provider if: You have signs of a urinary tract infection, such as: ?Frequent urination or passing small amounts of urine frequently. ?Needing to urinate urgently. ?Pain or burning with urination. ?Urine that smells bad or unusual. ?Cloudy urine. ?Pain in the lower abdomen or back. ?Trouble urinating. ?Blood in the urine. ?Vomiting or being less hungry than normal. ?Diarrhea or abdominal pain. ?Vaginal discharge, if you are female. Your symptoms are getting worse instead of better. Get help right away if: You cannot pass urine. You have a fever. You have swelling, bruising, or discoloration of your genital area. This includes the penis, scrotum, and inner thighs for men, and the outer genital organs (vulva) and inner thighs for women. You develop swelling in your legs. You have difficulty breathing. Summary Urethral stricture is narrowing of the tube (urethra) that carries urine from the bladder out of the body. The urethra can become narrow due to scar tissue from an injury or infection. This condition can make it difficult to pass urine. This condition is treated with surgery. The type of surgery that you have depends on the severity of your condition. Contact a health care provider if your symptoms get worse or you have signs of a urinary tract infection. This information is not intended to replace advice given to you by your health care provider. Make sure you discuss any questions you have with your health care provider. Document Released: 03/17/2016 Document Revised: 10/02/2018 Document Reviewed: 10/02/2018 [employer] Patient Education 2020 [employer]. Follow Up Care 03/07/2022 13:19:55 With:LONNY GUILLERMO, Alin Salter, NANCY Address: [facility] [address] , [place] [address]- When: Unknown [facility] Hospital Discharge instructions 06-29-2021 Note Date & Type Note Facility 06-29-2021 Hospital Discharg e instructions Patient Education 06/29/2021 16:38:58 Urethral Stricture Urethral Stricture Urethral stricture is narrowing of the tube (urethra) that carries urine from the bladder out of the body. The urethra can become narrow due to scar tissue from an injury or infection. This can make it difficult to pass urine. In women, the urethra opens above the vaginal opening. In men, the urethra opens at the tip of the penis, and the urethra is much longer than it is in women. Because of the length of the male urethra, urethral stricture is much more common in men. This condition is treated with surgery. What are the causes? In both men and women, common causes of urethral stricture include: Urinary tract infection (UTI). Sexually transmitted infection (STI). Use of a tube placed into the urethra to drain urine from the bladder (urinary catheter). Urinary tract surgery. In men, common causes of urethral stricture include: A severe injury to the pelvis. Prostate surgery. Injury to the penis. In many cases, the cause of urethral stricture is not known. What increases the risk? You are more likely to develop this condition if you: Are male. Men who have had prostate surgery are at risk of developing this condition. Use a urinary catheter. Have had urinary tract surgery. What are the signs or symptoms? The main symptom of this condition is difficulty passing urine. This may cause decreased urine flow, dribbling, or spraying of urine. Other symptom of this condition may include: Frequent UTIs. Blood in the urine. Pain when urinating. Swelling of the penis in men. Inability to pass urine (urinary obstruction). How is this diagnosed? This condition may be diagnosed based on: Your medical history and a physical exam. Urine tests to check for infection or bleeding. X-rays. Ultrasound. Retrograde urethrogram. This is a type of test in which dye is injected into the urethra and then an X-ray is taken. Urethroscopy. This is when a thin tube with a light and camera on the end (urethroscope) is used to look at the urethra. How is this treated? This condition is treated with surgery. The type of surgery that you have depends on the severity of your condition. You may have: Urethral dilation. In this procedure, the narrow part of the urethra is stretched open (dilated) with dilating instruments or a small balloon. Urethrotomy. In this procedure, a urethroscope is placed into the urethra, and the narrow part of the urethra is cut open with a surgical blade inserted through the urethroscope. Open surgery. In this procedure, an incision is made in the urethra, the narrow part is removed, and the urethra is reconstructed. Follow these instructions at home: Take kefw-edv-eoiepte and prescription medicines only as told by your health care provider. If you were prescribed an antibiotic medicine, take it as told by your health care provider. Do not stop taking the antibiotic even if you start to feel better. Drink enough fluid to keep your urine pale yellow. Keep all follow-up visits as told by your health care provider. This is important. Contact a health care provider if: You have signs of a urinary tract infection, such as: ?Frequent urination or passing small amounts of urine frequently. ?Needing to urinate urgently. ?Pain or burning with urination. ?Urine that smells bad or unusual. ?Cloudy urine. ?Pain in the lower abdomen or back. ?Trouble urinating. ?Blood in the urine. ?Vomiting or being less hungry than normal. ?Diarrhea or abdominal pain. ?Vaginal discharge, if you are female. Your symptoms are getting worse instead of better. Get help right away if: You cannot pass urine. You have a fever. You have swelling, bruising, or discoloration of your genital area. This includes the penis, scrotum, and inner thighs for men, and the outer genital organs (vulva) and inner thighs for women. You develop swelling in your legs. You have difficulty breathing. Summary Urethral stricture is narrowing of the tube (urethra) that carries urine from the bladder out of the body. The urethra can become narrow due to scar tissue from an injury or infection. This condition can make it difficult to pass urine. This condition is treated with surgery. The type of surgery that you have depends on the severity of your condition. Contact a health care provider if your symptoms get worse or you have signs of a urinary tract infection. This information is not intended to replace advice given to you by your health care provider. Make sure you discuss any questions you have with your health care provider. Document Released: 03/17/2016 Document Revised: 10/02/2018 Document Reviewed: 10/02/2018 [employer] Patient Education 2020 [employer]. Follow Up Care 05/17/2021 10:11:02 With:LONNY GUILLERMO, Alin Salter, URL Address: [facility] [address] , [place] [address]- Business (1) When: Unknown [facility] Clinical Note 03-22-2021 Note Date & Type Note Facility 03-22-2021 Note PROCEDURE: XR KNEE L T 3V COMPARISON: None. HISTORY: Enthesopathy of lower limb FINDINGS: BONES:No acute fracture or dislocation. Minimal marginal osteophyte formation in the medial compartment SOFT TISSUES:Negative. No visible soft tissue swelling. EFFUSION:Trace suprapatellar joint effusion OTHER: Negative. IMPRESSION: Minimal osteoarthritis medial compartment Electronically authenticated by: TEZ DAWSON Date: 2021-03-22 14:33 [facility] Evaluation + Plan note Note Date & Type Note Facility Evaluation + Plan note Future Appointments Appointment Date:08/24/2021 09:45:00 AM Scheduled Provider:Neil RAMAN MD [facility] Type:[facility] Follow Up [facility] Evaluation note Note Date & Type Note Facility Evaluation note Diagnosis Acute cystitis with hematuria- Primary Reactive depression (CMS/HCC) Benign essential hypertension (CMS/HCC) Essential hypertension, benign documented in this encounter [facility] Hospital course Narrative Note Date & Type Note Facility Hospital course Narrative No data available for this section [facility] Progress note Note Date & Type Note Facility Progress note No data available for this section [facility] Summary Purpose Family History No Family History Records FoundNo Family History Records FoundNo Family History Records FoundNo Family History Records Found Advance Directives No Advanced Directives Records FoundNo Advanced Directives Records FoundNo Advanced Directives Records FoundNo Advanced Directives Records Found Additional Source Comments INFORMATION SOURCE (unrecogn ized section and content) DATE CREATED AUTHOR 07/02/2021 [facility] dical Specialist DATE CREATED AUTHOR AUTHOR'S ORGANIZ ATION 02/24/2022 [facility] pital DATE CREATED AUTHOR AUTHOR'S ORGANIZ ATION 04/12/2023 [facility] dical Specialists EPIC DATE CREATED AUTHOR AUTHOR'S ORGANIZ ATION 05/25/2023 [facility] Patient Care team informatio n (unrecognized section and content) Final Inspector Paper Relationship Specialty Start Date End Date Mikel Lino MD [address] [place] [address] PCP - General Internal Medicine 07/21/22 Mikel Lino MD [address] [place] [address] PCP - ACO Reach 07/27/22 Favian Fernández, AGRICULTURAL ECONOMICS TEACHER [address] [place] [address] Nurse Practitioner Family Medicine 07/21/22 Final Inspector Paper Relationship Specialty Start Date End Date Mikel Lino MD [address] [place] [address] PCP - General Internal Medicine 07/21/22 Mikel Lino MD [address] [place] [address] PCP - ACO Reach 07/27/22 Favian Fernández, AGRICULTURAL ECONOMICS TEACHER [address] [place] [address] Nurse Practitioner Family Medicine 07/21/22 Final Inspector Paper Relationship Specialty Start Date End Date Mikel Lino MD [address] [place] [address] PCP - General Internal Medicine 07/21/22 Mikel Lino MD [address] [place] [address] PCP - ACO Reach 07/27/22 Favian Fernández, AGRICULTURAL ECONOMICS TEACHER [address] [place] [address] Nurse Practitioner Family Medicine 07/21/22 Final Inspector Paper Relationship Specialty Start Date End Date Mikel Lino MD [address] [facility] [address] [place] [address] PCP - General Internal Medicine 07/21/22 Mikel Lino MD [address] [facility] [address] [place] [address] PCP - ACO Reach 07/27/22 Favian Fernández NP [address] [facility] [address] [place] [address] Nurse Practitioner Family Medicine 07/21/22 Reason for Visit (unrecogniz ed section and content) Reason Comments Hypertension Depression would like checked for UTI Pt would like UA ran to make sure she does not have UTI states she has mild dysuria FOR RECORDS PERTAINING TO PATIENTS WHO ARE OR HAVE BEEN ENROLLED IN A CHEMICAL DEPENDENCY/SUBSTANCEABUSE PROGRAM, SOME INFORMATION MAY BE OMITTED. This clinical summary was aggregated from multiple sources. Caution should be exercised in using it in the provision of clinical care. This summary normalizes information from multiple sources, and as a consequence, information in this document may materially change the coding, format and clinical context of patient data. In addition, data may be omitted in some cases. CLINICAL DECISIONS SHOULD BE BASED ON THE PRIMARY CLINICAL RECORDS. [employer] provides no warranty or guarantee of the accuracy or completeness of information in this document.
[2023-05-30 16:44] VITALS: BP 194/92
--- NOTE | 2023-05-30 16:59 | ED_ITS ---
HPI - General Adult General Chief complaint: Allergic Reaction Stated complaint: Facial Pain Time Seen by Provider: 05/30/23 16:59 Source: patient and family Mode of arrival: walk-in Limitations: no limitations History of Present Illness HPI narrative: This patient is here for swelling of her upper lip. She is otherwise asymptomatic and has no complaints. She has not had any trauma or injury. It is not painful. She has no trouble swallowing or speaking. She has not had a bad cough. She is not on any new medications. It should be noted that she does take lisinopril in addition to other medications for her high blood pressure. She is on an antihistamine for the last several months for an allergic reaction but does not have much insight as to why she is on that at this time. She does not have any hives or itching or pruritus. She does not have any blistering of her skin no erythema. Does not have any tooth ache or tenderness in the oral cavity. Related Data Home Medications ?Medication ?Instructions ?Recorded ?Confirmed lisinopril 10 mg tablet 20 mg PO DAILY 01/05/23 01/12/23 Allergies Allergy/AdvReac Type Severity Reaction Status Date / Time No Known Drug Allergies Allergy Verified 01/05/23 11:44 [facility] Medical History (Updated 05/30/23 @ 17:04 by Roderick Ovalle MD) History of syncope ?Z87.898 - Personal history of other specified conditions (ICD-10) GERD (gastroesophageal reflux disease) ?K21.9 - Gastro-esophageal reflux disease without esophagitis (ICD-10) HTN (hypertension) ?I10 - Essential (primary) hypertension (ICD-10) Recurrent syncope ?R55 - Syncope and collapse (ICD-10) Social History Smoking status: Never smoker Exam Narrative Exam Narrative: Awake alert very pleasant here with family members. She is in no distress vital signs are stable her blood pressure was up a little bit initially and she is admittedly anxious about this. On examination HEENT shows her nasal area to be normal. There is no rhinitis. There is no conjunctivitis there is no facial swelling. The lower lip is normal the upper lip does not show any viral enanthem's or blistering or vesicles. There is no evidence of staph in her nasal area. There dental condition is normal she does have dentures. The uvula the tongue the palate and floor the mouth are all completely normal. Uvula rises in the midline. Her lungs are clear with no wheeze rales or rhonchi. Skin and integument does not have any petechia purpura hives or other abnormalities. Constitutional Vital Signs, click to edit/add: Last Vital Signs Temp 97.5 F L 05/30/23 15:40 Pulse 81 05/30/23 15:40 Resp 20 05/30/23 15:40 BP 194/92 H 05/30/23 16:44 Pulse Ox 99 05/30/23 15:40 O2 Del Method Room Air 05/30/23 15:40 Course Vital Signs Vital signs: Vital Signs Temperature 97.5 F L 05/30/23 15:40 Pulse Rate 81 05/30/23 15:40 Respiratory Rate 20 05/30/23 15:40 Blood Pressure 228/100 H 05/30/23 15:40 Pulse Oximetry 99 05/30/23 15:40 Oxygen Delivery Method Room Air 05/30/23 15:40 Temperature 97.5 F L 05/30/23 15:40 Pulse Rate 81 05/30/23 15:40 Respiratory Rate 20 05/30/23 15:40 Blood Pressure 194/92 H 05/30/23 16:44 Pulse Oximetry 99 05/30/23 15:40 Oxygen Delivery Method Room Air 05/30/23 15:40 Medical Decision Making [facility] Narrative Medical decision making narrative: 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 Is unlikely that there is any other etiology involved today. We want her to stop the lisinopril, she should call her family doctor in the morning to see if she needs additional blood pressure medications additionally to her carvedilol which she takes. She will be placed on prednisone. She is already on a histamine valery and will not be placed on Benadryl. She is to apply cold compresses to the lip area as well Discharge Plan Discharge Stand Alone Forms: Portal Instructions Chief Complaint: Allergic Reaction Clinical Impression: Adverse drug reaction Patient Disposition: Home, Self-Care Time of Disposition Decision: 17:03 Prescriptions / Home Meds: No Action lisinopril 10 mg tablet 20 mg PO DAILY Print Language: Romanian Additional Instructions: Start the prednisone as advised. Stop lisinopril. Call your family doctor tomorrow to discuss other additional blood pressure medicines that you may need Referrals: JANIE VALDES [Primary Care Provider] - 1 week
== END 2023-05-30 17:28 | disposition home or self-care (01) ==
PROVIDERS: Emergency Provider Emergency Medicine Emergency Medical Services; PCP Internal Medicine
DX: T78.3XXA Angioneurotic edema, initial encounter (principal); T39.395A Adverse effect of other nonsteroidal anti-inflammatory drugs [NSAID], initial encounter; K21.9 Gastro-esophageal reflux disease without esophagitis; I10 Essential (primary) hypertension; Z79.899 Other long term (current) drug therapy
CPT/HCPCS: 99281

== ENCOUNTER 2023-06-09 10:33 | Emergency (ER) | payer MEDICARE, SELFPAY ==
[2023-06-09] VITALS (41 sets, daily range): BP systolic 116–179; BP diastolic 54–88; PULSE 46–83; TEMP 36.6; O2SAT 92–100; BMI 27.1
--- NOTE | 2023-06-09 10:52 | ED_ITS ---
HPI - Syncope General Chief Complaint: Syncope Stated Complaint: SYNCOPE Time Seen by Provider: 06/09/23 10:52 Source: patient Mode of arrival: ambulance Limitations: no limitations History of Present Illness HPI narrative: Patient is here by rescue squad. She apparently was shopping at a local store with her friends and while sitting nose she started feeling woozy and weak. She in fact had a syncopal episode. They did not have any injury at the scene and she does not complain of a headache or injury apparently they laid her on the ground. She says she has had a sore like this before and they have not been able to discover why. She denies any history of arrhythmia or suggestion of cardiac pacemaker. She did not have any shortness of breath. She felt fine when she went to the store but then developed a little bit of nausea just prior to this event. She did not have any known seizure activity or witnessed seizure activity. She remembers the whole event. On arrival here she was seen and her vital signs are stable. She has not had any diarrhea or vomiting recently. 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 She did not have diplopia dysarthria or dysphagia. She did not notice any weakness of her trunk torso or extremities prior to this time. She says she feels a little weak but feels improved at this time Related Data Home Medications ?Medication ?Instructions ?Recorded ?Confirmed lisinopril 10 mg tablet 20 mg PO DAILY 01/05/23 06/09/23 betamethasone dipropionate 0.05 % 1 applic topical Q12H PRN rash 06/09/23 06/09/23 topical cream carvedilol 25 mg tablet 25 mg PO BID 06/09/23 06/09/23 hydrochlorothiazide 25 mg tablet 12.5 mg PO DAILY 06/09/23 06/09/23 hydroxyzine HCl 10 mg tablet 10 mg PO BEDTIME 06/09/23 06/09/23 triamcinolone acetonide 0.1 % 1 applic topical DAILY 06/09/23 06/09/23 topical cream Allergies Allergy/AdvReac Type Severity Reaction Status Date / Time No Known Drug Allergies Allergy Verified 01/05/23 11:44 [facility] Medical History (Updated 06/09/23 @ 15:54 by Roderick Ovalle MD) History of syncope ?Z87.898 - Personal history of other specified conditions (ICD-10) GERD (gastroesophageal reflux disease) ?K21.9 - Gastro-esophageal reflux disease without esophagitis (ICD-10) HTN (hypertension) ?I10 - Essential (primary) hypertension (ICD-10) Recurrent syncope ?R55 - Syncope and collapse (ICD-10) Social History Smoking status: Never smoker Exam Narrative Exam Narrative: This patient was seen very shortly after arrival. She is a very spunky bright alert 88-year-old. No evidence of confusion or altered mental status her GCS is 15. Blood pressure vital signs are monitored continuously while she is here. Overall her health appears good there is no scleral icterus or jaundice her hydration status is excellent mucous membranes are moist and pink. Cognition and mentation are normal there is no abnormalities of her cranial nerves and she has no focal neurological deficits. Heart rate and rhythm are normal with no obvious murmur or arrhythmia. Lungs are clear with no wheeze rales or rhonchi and her pulse oximetry is normal at 96%. Examination her abdomen she has no pulsatile masses. Peripheral perfusion extremities is normal. Constitutional Vital Signs, click to edit/add: Last Vital Signs Temp 97.9 F 06/09/23 10:36 Pulse 73 06/09/23 15:40 Resp 18 06/09/23 10:36 BP 172/80 H 06/09/23 14:05 Pulse Ox 99 06/09/23 15:40 O2 Del Method Room Air 06/09/23 11:48 Course Vital Signs Vital signs: Vital Signs Temperature 97.9 F 06/09/23 10:36 Pulse Rate 56 L 06/09/23 10:36 Respiratory Rate 18 06/09/23 10:36 Blood Pressure 133/54 06/09/23 10:36 Pulse Oximetry 98 06/09/23 10:36 Oxygen Delivery Method Room Air 06/09/23 10:36 Temperature 97.9 F 06/09/23 10:36 Pulse Rate 73 06/09/23 15:40 Respiratory Rate 18 06/09/23 10:36 Blood Pressure 172/80 H 06/09/23 14:05 Pulse Oximetry 99 06/09/23 15:40 Oxygen Delivery Method Room Air 06/09/23 11:48 MDM - Syncope MDM Narrative Medical decision making narrative: This patient has had previous episodes of syncope and had 1 today. She has not had Holter monitoring. She has not been sick prior to today's event. She has been under observation for quite a while here and has had extensive battery of testing. She did not have any evidence of malignant arrhythmia on her cardiac monitoring. Because of elevation of her D-dimer a CTA was done to make sure she did not have pulmonary embolism and it was negative for acute findings. Laboratory testing is reassuring with no obvious emergency medical condition. I believe she can be safely followed as an outpatient these instructions were discussed with her daughter. They are encouraged to return should there be any change in the status. They should also talk to primary care doctor about the recent blood pressure medication change which may be playing a role here although she did not have any hypotensive episodes while here. Lab Data Labs: Lab Results 06/09/23 Range/Units 11:30 WBC 7.1 (4.0-11.0) 10^3/uL RBC 3.49 L (4.20-5.40) 10^6/uL Hgb 10.7 L (12.0-16.0) g/dL Hct 32.8 L (36.0-48.0) % MCV 94.0 (81.0-99.0) fL MCH 30.7 (26.7-34.0) pg MCHC 32.6 (29.9-35.2) g/dL RDW 12.5 (11.0-15.0) % Plt Count 259 (150-450) 10^3/uL MPV 9.5 (9.5-13.5) fL Neut % (Auto) 63.7 (43.0-75.0) % Lymph % (Auto) 19.2 L (20.5-60.0) % [place] % (Auto) 11.0 (1.7-12.0) % Eos % (Auto) 4.4 (0.9-7.0) % Baso % (Auto) 1.3 (0.2-2.0) % Neut # (Auto) 4.5 (1.4-6.5) 10^3/uL Lymph # (Auto) 1.4 (1.2-3.8) 10^3/uL [place] # (Auto) 0.8 (0.3-0.8) 10^3/uL Eos # (Auto) 0.3 (0.0-0.7) 10^3/uL Baso # (Auto) 0.1 (0.0-0.1) 10^3/uL Abs Immat Gran (auto) 0.03 (0.00-0.03) 10^3/uL Imm/Tot Granulo (auto) 0.4 (0.0-0.5) % D-Dimer 1.99 H* (<=0.59) mg/L FEU Sodium 140 (136-145) mmol/L Potassium 4.3 (3.5-5.1) mmol/L Chloride 106 (98-107) mmol/L Carbon Dioxide 26.8 (21.0-32.0) mmol/L Anion Gap 11.5 BUN 14.0 (7.0-18.0) mg/dL Creatinine 0.75 (0.55-1.02) mg/dL Est GFR ( Amer) >60 (>=60) Est GFR (Non-Af Amer) >60 (>=60) BUN/Creatinine Ratio 18.7 Glucose 100 (74-106) mg/dL Lactate 1.0 (0.4-2.0) mmol/L Calcium 9.1 (8.5-10.1) mg/dL Magnesium 2.0 (1.8-2.4) mg/dL Total Bilirubin 0.5 (0.2-1.0) mg/dL AST 14 L (15-37) U/L ALT 18 (14-59) U/L Alkaline Phosphatase 94 (46-116) U/L Troponin I High Sens 4.3 (4.0-51.3) pg/mL Total Protein 6.1 L (6.4-8.2) g/dL Albumin 3.0 L (3.4-5.0) g/dL Globulin 3.1 g/dL Albumin/Globulin Ratio 1.0 Discharge Plan Discharge Stand Alone Forms: Portal Instructions Chief Complaint: Syncope Clinical Impression: Syncope Patient Disposition: Home, Self-Care Time of Disposition Decision: 15:53 Prescriptions / Home Meds: No Action carvedilol 25 mg tablet 25 mg PO BID betamethasone dipropionate 0.05 % cream 1 applic TOPICAL Q12H PRN (Reason: rash) hydrochlorothiazide 25 mg tablet 12.5 mg PO DAILY hydroxyzine HCl 10 mg tablet 10 mg PO BEDTIME triamcinolone acetonide 0.1 % cream 1 applic TOPICAL DAILY lisinopril 10 mg tablet 20 mg PO DAILY Hold Instructions: Doctor's Order Print Language: Greek Additional Instructions: Follow-up with your primary care doctor for further evaluation/testing as indicated. Referrals: JANIE VALDES [Primary Care Provider] - 1 week
--- NOTE | 2023-06-09 10:54 | ECG_ITS ---
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
--- NOTE | 2023-06-09 10:54 | XR_ITS ---
The [address] [address] Patient Name: JOSE SANTOYO MRN: [id number] date: 1935 Sex: F Assigned Patient Location: ER Current Patient Location: ER Accession/Order Number: [id number] Exam Date: 06/09/2023 11:02 Report Date: 06/09/2023 12:29 At the request of: DEEPIKA BOLANOS Procedure: XR chest 1V PROCEDURE: XR chest 1V, 06/09/2023 11:02 AM EDT CLINICAL INDICATIONS: Syncope COMPARISON: 01/12/2023 TECHNIQUE: Upright AP portable chest 1110 hours FINDINGS: Multichamber cardiac enlargement is stable. Moderate thoracic aortic calcified plaque noted. Calcified subaortic, bilateral hilar lymph nodes noted. Lung volumes are mildly increased. Stable lingular scar versus atelectasis. Acute consolidation, pleural effusion, or pneumothorax is not demonstrated. No acute osseous pathology. Regional soft tissues are unremarkable. XR/XR chest 1V IMPRESSION: 1. Cardiomegaly 2. Prior granulomatous disease 3. No acute pulmonary pathology or interval change Electronically authenticated by: LÓPEZ MARSHALL Date: 06/09/2023 12:29
[2023-06-09] MEDS: 0.9 % SODIUM CHLORIDE 1,000 ML 999 ML IV (11:04)
--- OUTSIDE RECORDS SUMMARY | 2023-06-09 11:05 | XMS_ITS | CCD ---
Author Organization [facility] Care Team Providers Care Corn Miller Name Role Phone MIKEL LINO Primary Care Physician [phone] DR MIKEL LINO Primary Care Unavailable KEISHA, DR LIMA Consulting Unavailable KEISHA, DR LIMA Attending Unavailable KEISHA, DR LIMA Admitting Unavailable EUNICE, DR TEZ Ceja Consulting Unavailable KEISHA, DR LIAM Primary Care Unavailable SHOSHANA ODELL Admitting Unavailable [...] Unavailable Mikel Lino MD Primary Care Provider Jolene CERTIFIED ORTHOTIST/PEDORTHIST, Favian Vasquez Unavailable [phone] Mikel Lino MD Unavailable [phone] MIKEL LINO Attending Unavailable NINOSKA MONTEZ Attending Unavailable NIONSKA MONTEZ Attending Unavailable MIKEL LINO Attending Unavailable MIKEL LINO Attending Unavailable MIKEL LINO Attending Unavailable Alin ANGEL Attending Unavailable Allergies Allergy Classification Reported Allergen(s) Allergy Type Date of Onset Reaction(s) Facility (3 sources) Adhesive Tape; Translations: [Tape] Propensity to adverse reactions to substance Unknown Reaction [facility] (5 sources) Amoxicillin Drug Allergy 08-24-19 [facility] (5 sources) Nitrofurantoin Drug Allergy 08-24-19 [facility] (5 sources) Other Propensity to adverse reactions 10-14-19 23 Unknown [facility] Work Phone: (1 source) No Known Medication Allergies; Translations: [No Known Medication Allergies] Propensity to adverse reactions (disorder) [facility] Repository NEGATED: Highlighted row has been ruled out! (1 source) Drug allergy [facility] Lev NEGATED: Highlighted row has been ruled out! (1 source) Drug allergy [facility] Medications Current Medications Medication Drug Class(es) Dates [...] procedure, # 2 tab(s), Refills(s) 0, Pharmacy: [facility]/pharmacy #[id number], 165, cm, 06/29/21 16:13:00 EDT, Height/Length [...] MonFri, # 42.5 gm, Refills(s) 5, Pharmacy: [facility]/pharmacy #[id number], 165, cm, 06/29/21 16:13:00 EDT, Height/Length [...] water, # 160 cap(s), Refills(s) 1, Pharmacy: [facility]/pharmacy #[id number], 165, cm, 05/04/20 8:44:00 EST, Height/Length [...] UD (possible cysto) l/m on home machine.LG [facility] GLYCOHEMOGLOBIN A1Con Glucose [Mass/Vol] 108 mg/dL [facility] HbA1c (Bld) [Mass fraction] 5.4 % 4.5 - 6.2 % [facility] Comment on above: ADA RECOMMENDED LIMI T 4.0 - 6.0 ADA THERAPEUTIC TARGET < 7.0 ACTION SUGGESTED > 7.0 [facility] Urinalysis macro (dipstick) panel (U)on 04-11-2023 Bilirubin, UA Negative Negative - 4(70) +++ mg/dL [facility] Blood, UA Positive Negative - 50 Oj/mcL [facility] Glucose, UA Negative Negative - 2000(110) ++++ mg/dL [facility] Ketones, UA Negative Negative - 160(16) ++++ mg/dL [facility] Leukocytes, UA Moderate Negative - 500+++ Nancy/mcL [facility] Nitrite, UA Negative Negative - Positive [facility] pH, UA 7.5 5 - 9 [facility] Protein, UA Negative Negative - 2000(20) ++++ mg/dL [facility] Spec Grav, UA 1.020 1 - 1.03 [facility] Urobilinogen, UA 0.2 0.2 - 12 mg/dL [facility] Consent for Procedure/Surger yon 12-20-2022 Consent for Procedure/Surgery [id number]. 00TIFF [facility] Ambulatory Visit Summaryon 1 Ambulatory Visit Summary YARELISJOSE Narciso :1935 Visit Date:12/19/2022 Ambulatory Visit Instructions Your Diagnosis Unspecified urethral stricture, female Chronic cystitis Tests Performed Urnls Dip Stick Auto w/o Microscopy POC 14820 Your Care Team Attending Physician - LONNY [...] UD Where: [facility] [address], [place] [address]- Medications What How Much When Why Instructions [...] Urnls Dip Stick Auto w/o Microscopy POC 62230 (12/19/2022) Bilirubin Urine Dipstick - Negative Blood Urine Dipstick - Negative Glucose Urine Dipstick - Negative Ketones Urine Dipstick - Negative Leukocytes Urine Dipstick - 1+ Small Nitrite Urine Dipstick - Negative Protein Urine Dipstick - Negative Specific [place] Urine Dipstick - 1.010 Urine Appearance Urine [...] urine. ? (more content not included)... Normal [facility] Patient Educationon 12-20-19 23 Patient Education Urology [...] Follow these instructions at home: ? Take ucya-iwf-belqutf and prescription medicines only as told by [...] provider. Document Revised: 12/27/2021 Document Reviewed: 12/27/2021 [employer] Patient Education ? 2022 manetch. Maxine Jeff [facility] Urology Office/Clinic Noteon 12-19-2022 Urology Office/Clinic [...] Tight The Urethra was dilated to: 20-30 Finnish with sounds. Specimens Removed: None Postoperative Information [...] [facility] [address], [place] [address]- Additional Instructions: w/IO UD Patient Education Urethral [...] vax 20 (more content not included)... Normal [facility] Comment on above: Result Comment: Elec tronically [...] by: MELLISSA FRIEDMAN Date: 2022-02-14 10:37 Normal [facility] XR FOOT GOPAL MIN 3 VIEWSon [...] by: TEZ DAWSON Date: 2021-09-14 19:24 Normal [facility] Complete Blood Counton 06-29 Erythrocyte distribution width (RBC) [Ratio] 12.7 % Normal 11.0-15.0 [facility] [employer] Comment on above: Performed By: #### M G, TSH, CBC, CMP #### [facility] [address] [place], [place] [id number] Hematocrit (Bld) [Volume fraction] 36.4 % Normal 35.0-47.0 [facility] [employer] Comment on above: Performed By: #### M G, TSH, CBC, CMP #### [facility] [address], [place] [id number] Hemoglobin (Bld) [Mass/Vol] 12.2 g/dL Normal 11.6-15.5 [facility] [employer] Comment on above: Performed By: #### M G, TSH, CBC, CMP #### [facility] [address], [place] [id number] MCH (RBC) [Entitic mass] 31.4 pg Normal 27.0-33.0 [facility] Specialist Comment on above: Performed By: #### M G, TSH, CBC, CMP #### [facility] [address], [place] [id number] MCHC (RBC) [Mass/Vol] 33.5 g/dL Normal 32.0-36.0 [facility] Comment on above: Performed By: #### M G, TSH, CBC, CMP #### [facility] [address], [place] [id number] MCV (RBC) [Entitic vol] 94 fL Normal 80-100 [facility] Comment on above: Performed By: #### M G, TSH, CBC, CMP #### [facility] [address], [place] [id number] Platelet mean volume (Bld) [Entitic vol] 10.30 fL Normal 7.50-12.50 [facility] Specialist Comment on above: Performed By: #### M G, TSH, CBC, CMP #### [facility] [address] [place], [place] [id number] Platelets (Bld) [#/Vol] 297 10*3/uL Normal 140-400 [facility] [employer] Comment on above: Performed By: #### M G, TSH, CBC, CMP #### [facility] [address], [place] [id number] RBC (Bld) [#/Vol] 3.89 10*6/uL Low 3.90-5.20 [facility] [employer] Comment on above: Performed By: #### M G, TSH, CBC, CMP #### [facility] [address], [place] [id number] RDW-SD 43.8 fL Normal 37.0-50.0 [facility] Comment on above: Performed By: #### M G, TSH, CBC, CMP #### [facility] [address] [place], [place] [id number] WBC (Bld) [#/Vol] 6.9 10*3/uL Normal 3.8-11.0 [facility] [employer] Comment on above: Performed By: #### M G, TSH, CBC, CMP #### [facility] [address] [place], [place] [id number] Comprehensive Metabolic Pane bry 06-29-2021 Albumin [Mass/Vol] 4.4 g/dL Normal 3.6-5.1 [facility] [employer] Comment on above: Performed By: #### M G, TSH, CBC, CMP #### [facility] [address], [place] [id number] Albumin/Globulin [Mass ratio] 2.1 {ratio} Normal 1.0-2.5 [facility] Comment on above: Performed By: #### M G, TSH, CBC, CMP #### [facility] [address], [place] [id number] ALP [Catalytic activity/Vol] 95 U/L Normal 35-119 [facility] Special[facility] Comment on above: Performed By: #### M G, TSH, CBC, CMP #### [facility] [address], [place] [id number] ALT [Catalytic activity/Vol] 9 U/L Normal 6-33 [facility] Comment on above: Result Comment: 02/02 Female reference range changed. Performed By: #### M G, TSH, CBC, CMP #### [facility] [address], [place] [id number] Anion gap [Moles/Vol] 15 mmol/L Normal 12-20 [facility] Comment on above: Result Comment: Effe ctive 03/10/2019 reference range changed. Performed By: #### M G, TSH, CBC, CMP #### [facility] [address] [place], [place] [id number] AST [Catalytic activity/Vol] 13 U/L Normal 9-34 [facility] Comment on above: Performed By: #### M G, TSH, CBC, CMP #### [facility] [address], [place] [id number] Bilirubin [Mass/Vol] 0.40 mg/dL Normal 0.30-1.20 [facility] Comment on above: Performed By: #### M G, TSH, CBC, CMP #### [facility] [address], [place] [id number] BUN/CREA 21 Ratio Normal 6-22 [facility] Comment on above: Performed By: #### M G, TSH, CBC, CMP #### [facility] [address], [place] [id number] Calcium [Mass/Vol] 9.9 mg/dL Normal 8.6-10.2 [facility] Comment on above: Performed By: #### M G, TSH, CBC, CMP #### [facility] [address] [facility] [place] [place] [id number] Chloride [Moles/Vol] 105 mmol/L Normal 98-107 [facility] Comment on above: Performed By: #### M G, TSH, CBC, CMP #### [facility] [address] [facility] [id number] CO2 [Moles/Vol] 25 mmol/L Normal 20-31 [facility] Comment on above: Performed By: #### M G, TSH, CBC, CMP #### [facility] [address] [facility] [place] [id number] Creatinine [Mass/Vol] 0.6 mg/dL Normal 0.6-1.4 [facility] Comment on above: Performed By: #### M G, TSH, CBC, CMP #### [facility] [address] [facility] [place] [id number] eGFRAA 113 mL/min/1.73m2 Normal >60 [facility] Comment on above: Performed By: #### M G, TSH, CBC, CMP #### [facility] [address] [facility] [place] [id number] eGFRNAA 93 mL/min/1.73m2 Normal >60 [facility] Comment on above: Performed By: #### M G, TSH, CBC, CMP #### [facility] [address] [facility] [place] [place] [id number] Globulin (S) [Mass/Vol] 2.1 g/dL Normal 1.9-3.7 [facility] Comment on above: Performed By: #### M G, TSH, CBC, CMP #### [facility] [address] [facility] [place] [id number] Glucose [Mass/Vol] 92 mg/dL Normal 65-99 [facility] Comment on above: Result Comment: For FASTING Glucose --- ADA reference ranges: Normal 65-99 mg/dl Prediabetes 100-125 Diabetes >/= 126 Performed By: #### M G, TSH, CBC, CMP #### [facility] [address] [facility] [place] [place] [id number] Potassium [Moles/Vol] 4.5 mmol/L Normal 3.5-5.5 [facility] [employer] Comment on above: Performed By: #### M G, TSH, CBC, CMP #### [facility] [address] [place], [place] [id number] Protein [Mass/Vol] 6.5 g/dL Normal 6.1-8.1 Katy hawley [place] [employer] Comment on above: Performed By: #### M G, TSH, CBC, CMP #### [facility] [address] [place], [place] [id number] Sodium [Moles/Vol] 141 mmol/L Normal 135-146 Katy hawley [place] [employer] Comment on above: Performed By: #### M G, TSH, CBC, CMP #### [facility] [address] [place], [place] [id number] Urea nitrogen [Mass/Vol] 13 mg/dL Normal 7-25 [facility] [employer] Comment on above: Performed By: #### M G, TSH, CBC, CMP #### [facility] [address] [place], [place] [id number] Magnesiumon 06-29-2021 Magnesium [Mass/Vol] 2.0 mg/dL Normal 1.5-2.3 [facility] Comment on above: Performed By: #### M G, TSH, CBC, CMP #### [facility] [address] [place], [place] [id number] TSHon 06-29-2021 TSH 1.750 uIU/mL Normal 0.400-4.500 [facility] [employer] Comment on above: Performed By: #### M G, TSH, CBC, CMP #### [facility] [address] [place], [place] [id number] Vital Signs Date Time Vital Sign Value Performing Clinician Facility 04-11-2023 10:31050 Body height 160 cm Mikel Lino MD Work Phone: [facility] 04-11-2023 10:31-0500 Body mass index (BMI) [Ratio] 29.41 kg/m2 Mikel Lino MD Work Phone: [facility] 04-11-2023 10:31-0500 Body weight 75.3 kg Mikel Lino MD Work Phone: [facility] 04-11-2023 10:31-0500 Diastolic blood pressure 86 mm[Hg] Mikel Lino MD Work Phone: [facility] 04-11-2023 10:31-0500 Heart rate 81 /min Mikel Lino MD Work Phone: [facility] 04-11-2023 10:31-0500 SaO2% (BldA) [Mass fraction] 96 % Mikel Lino MD Work Phone: [facility] 04-11-2023 10:31-0500 Systolic blood pressure 160 mm[Hg] Mkiel Lino MD Work Phone: [facility] 04-04-2022 13:40-0500 Blood Pressure Location Alin ANGEL [facility] 04-04-2022 13:40-0500 Diastolic blood pressure 86 mm[Hg] Alin ANGEL [facility] 04-04-2022 13:40-0500 Heart rate 86 /min Alin ANGEL [facility] 04-04-2022 13:40-0500 Systolic blood pressure 155 mm[Hg] Alin ANGEL [facility] 06-29-2021 15:57-0400 Blood Pressure Location Alin ANGEL [facility] 06-29-2021 15:57-0400 Diastolic blood pressure 80 mm[Hg] Alin ANGEL [facility] 06-29-2021 15:57-0400 Heart rate 78 /min Alin ANGEL [facility] 06-29-2021 15:57-0400 Respiratory rate 16 /min Alin ANGEL [facility] 06-29-2021 15:57-0400 Systolic blood pressure 139 mm[Hg] Alin ANGEL [facility] Encounters Encounter Date Encounter Type Care Provider Facility Start: 04-11-2023 Bamboo Shut Downmendez Qureshi Work Phone: [facility] Start: 04-11-2023 Bamomayrao jr Qureshi Work Phone: [facility] Start: 04-11-2023 [facility] Result Encounter Generic External Data Provider [facility] Unsolicited Start: 04-11-2023 End: 04-11-2023 ambulatory MKIEL LINO Not Available Start: 04-11-2023 End: 04-11-2023 [...] Start: 12-19-2022 End: 12-20-2022 ambulatory Alincosta ANGEL Facility:[facility] Start: 04-04-2022 End: 04-04-2022 Patient encounter procedure Alin ANGEL [facility] Start: 02-14-2022 End: 02-15-[address] MIKEL LINO Facility:[facility] Start: 09-23-2021 End: 10-22-[address] MIKEL LINO Facility:[facility] Start: 09-14-2021 End: 09-15-[address] TEZ DAWSON Facility:[facility] Start: 06-29-2021 End: 06-29-2021 Patient encounter procedure Alin Joie ANGEL [facility] Start: 04-04-2021 End: 04-11-[address] MIKEL [...] 18 Start: 08-17-2017 Dilation of urethra Ivelisse ANGEL Comment on above: 08/26/2013, 02/18/20 14, 08/04/2014, 02/02/2015, 08/10/2015, 03/08/2016, 08/08/2016, 02/13/2017, 08/07/2017 Cholecystectomy Alin QASIM MCGRATH Hysterectomy Alin ANGEL Plan of Treatment Date Care Activity Detail Author Start: 03-08-2024 Medicare Annual Well ness (AWV) Medicare Annual Wellness (AWV) [facility] Start: 06-15-2023 End: 06-15-2023 Patient encounter procedure 06/15/2023 9:30 AM EDT Office Visit [facility] [address] [facility] [address] [place] [address] Mikel Lino MD [address] [facility] [address] [place] [address] [facility] Start: 05-08-2023 End: 05-08-2023 Patient encounter procedure 05/08/2023 10:25 AM EST Office Visit [facility] [address] [place] [id number] Ninoska Montez MD [address] [place] [address] [facility] Start: 04-11-2023 End: 04-11-2023 Patient encounter procedure [facility] Comment on above: Arrived Start: 04-09-2023 End: 04-09-2023 Patient encounter procedure 04/09/2023 10:45 AM EST Office Visit [facility] [address] [place] [address] Ninoska Montez MD [address] [place] [address] Arrived [facility] Comment on above: Arrived Start: 11-03-2022 Influenza vaccination Influenza Vacc ine (#1) [facility] Start: 04-02-2020 Pneumococcal Vaccine : 65+ Years (2 - PCV) Pneumococcal Vaccine: 65+ Years (2 - PCV) [facility] Immunizations Immunization Date Immunization Notes Care Provider Fa cility 04-06-2022 zoster vaccine recombinant Ninoska Montez MD Work Phone: [facility] 12-28-2021 influenza virus vacc ine, unspecified formulation Alin ANGEL [facility] 12-28-2021 Influenza, High-dose Seasonal, Quadrivalent, Preservative Free Ninoska Montez MD Work Phone: [facility] 02-09-2021 influenza virus vacc ine, unspecified formulation Alni ANGEL [facility] 02-09-2021 influenza, high dose seasonal, preservative-free Ninoska Montez MD Work Phone: [facility] 01-26-2021 influenza virus vacc ine, unspecified formulation Alin ANGEL [facility] 01-26-2021 influenza, high dose seasonal, preservative-free Ninoska Montez MD Work Phone: [facility] 12-07-2020 SARS-CoV-2 (COVID-19 ) mRNA BNT-162b2 vax Alin ANGEL [facility] Comment on above: Result Comment: 2022: [id number] 06-29-2020 diphtheria, tetanus toxoids and pertussis vaccine Ninoska Montez MD Work Phone: [facility] 04-21-2020 SARS-CoV-2 (COVID-19 ) mRNA BNT-162b2 vax Alin ANGEL [facility] 03-29-2020 SARS-CoV-2 (COVID-19 ) mRNA BNT-162b2 vax Alin ANGEL [facility] 03-05-2020 SARS-CoV-2 (COVID-19 ) mRNA BNT-162b2 vax Alin ANGEL [facility] Comment on above: Result Comment: has had 3 shots to date 01-12-2020 influenza virus vacc ine, unspecified formulation Alin ANGEL [facility] 01-12-2020 Seasonal trivalent influenza vaccine, adjuvanted, preservative free Ninoska Montez MD Work Phone: [facility] 04-02-2019 pneumococcal polysaccharide vaccine, 23 valent Alin ANGEL [facility] 02-05-2019 influenza virus vacc ine, unspecified formulation Alin ANGEL [facility] 02-05-2019 influenza, high dose seasonal, preservative-free Ninoska Montez MD Work Phone: [facility] 01-03-2019 influenza virus vacc ine, live, attenuated, for intranasal use Alin ANGEL [facility] 01-09-2018 influenza virus vacc ine, unspecified formulation Alin ANGEL [facility] 01-09-2018 Influenza, High-dose Seasonal, Quadrivalent, Preservative Free Ninoska Montez MD Work Phone: [facility] 01-03-2017 influenza virus vacc ine, unspecified formulation Alin ANGEL [facility] 01-03-2017 influenza, high dose seasonal, preservative-free Ninoska Montez MD Work Phone: [facility] 01-11-2016 influenza virus vacc ine, unspecified formulation Alin ANGEL [facility] 01-11-2016 influenza, high dose seasonal, preservative-free Ninoska Montez MD Work Phone: [facility] 11-26-2008 seasonal influenza, intradermal, preservative free Ninoska Montez MD Work Phone: [facility] Payers Date Payer Category Payer Unknown [facility] [id number] 2022-Present [address] [place] [address] [id number] 2002 Medicare MEDICARE MEDICAR E PART B [id number] 2002-[place] [place] [address] Medicare [id number] 1959 Medicare [id number] 1959 Unknown [id number] 1935 Unknown [id number] 1935 Unknown [id number] 1937 Unknown [id number] [id number] 1937 Unknown [id number] [id number] 1937 Unknown [id number] [id number] 1937 Unknown [id number] [id number] 9 1937 Unknown [id number] [id number] 9 1937 Unknown [id number] [id number] 9 1937 Unknown [id number] [id number] 9 1937 Unknown [id number] [id number] 9 1937 Unknown [id number] 9 1937 Unknown [id number] Social History Date Type Detail Facility Start: 10-12-2020 End: 08-23-2022 Tobacco smoking status Never smoked tobacco (finding) [facility] Tobacco smoking status Never [facility] Start: 03-08-2023 End: 03-12-2023 Sex Assigned At Female [facility] [employer] Start: 08-23-2022 Tobacco use and exposure Smokeless tobacco non-user [facility] Start: 03-12-2023 End: 04-11-2023 Alcohol intake Lifetime non-drinker (finding) [facility] Start: 03-08-2023 End: 03-12-2023 History of Social function [facility] Start: 1935 Sex Assigned At Not on file [place] [facility] Functional Status Date Assessment Result Facility 04-04-2022 Functional Status N/A [facility] [place] History of Present illness Narrative [...] History: Diagnosis Date Arthritis COVID-19 vaccine administered [employer] x2 Eczema Gallbladder disease GERD (gastroesophageal reflux [...] for Routine F/U. documented in this encounter [facility] Discharge instructions 04-04-2022 Note Date & Type [...] reconstructed. Follow these instructions at home: Take wlfr-uws-wctwbly and prescription medicines only as told by [...] 03/17/2016 Document Revised: 10/02/2018 Document Reviewed: 10/02/2018 [employer] Patient Education 2020 manetch. Follow Up Care 03/07/2022 13:19:55 With:LONNY GUILLERMO, Alin Salter, NANCY Address: [facility] [address] , [place] [address]- When: Unknown [facility] Hospital Discharge instructions 06-29-2021 Note Date [...] reconstructed. Follow these instructions at home: Take kfyn-nle-mopukdm and prescription medicines only as told by [...] 03/17/2016 Document Revised: 10/02/2018 Document Reviewed: 10/02/2018 [employer] Patient Education 2020 manetch. Follow Up Care 05/17/2021 10:11:02 With:LONNY GUILLERMO, Alin Salter, URL Address: [facility] [address] , [place] [address]- Business (1) When: Unknown [facility] Clinical Note 03-22-2021 Note Date [...] by: TEZ DAWSON Date: 2021-03-22 14:33 [facility] Evaluation + Plan note Note Date & Type Note Facility Evaluation + Plan note Future Appointments Appointment Date:08/24/2021 09:45:00 AM Scheduled Provider:Neil RAMAN MD Location:[facility] Appointment Type:[facility] Follow Up [facility] Evaluation note Note Date & Type Note Facility Evaluation note Diagnosis Acute cystitis with hematuria- Primary Reactive depression (CMS/HCC) Benign essential hypertension (CMS/HCC) Essential hypertension, benign documented in this encounter [facility] Hospital course Narrative Note Date & Type Note Facility Hospital course Narrative No data available for this section [facility] Progress note Note Date & Type Note Facility Progress note No data available for this section [facility] Summary Purpose Family History No Family History Records FoundNo Family History Records FoundNo Family History Records FoundNo Family History Records Found Advance Directives No Advanced Directives Records FoundNo Advanced Directives Records FoundNo Advanced Directives Records FoundNo Advanced Directives Records Found Additional Source Comments INFORMATION SOURCE (unrecogn ized section and content) DATE CREATED AUTHOR 07/02/2021 [facility] dical Specialist DATE CREATED AUTHOR AUTHOR'S ORGANIZ ATION 02/24/2022 [facility] pital DATE CREATED AUTHOR AUTHOR'S ORGANIZ ATION 04/12/2023 [facility] dical Specialists EPIC DATE CREATED AUTHOR AUTHOR'S ORGANIZ ATION 05/25/2023 [facility] Patient Care team informatio n (unrecognized section and content) Corn Miller Relationship Specialty Start Date End Date Mikel Lino MD [address] [place] [address] PCP - General Internal Medicine 07/21/22 Mikel Lino MD [address] [place] [address] PCP - ACO Reach 07/27/22 Favian Fernández, CERTIFIED ORTHOTIST/PEDORTHIST [address] [place] [address] Nurse Practitioner Family Medicine 07/21/22 Corn Miller Relationship Specialty Start Date End Date Mikel Lino MD [address] [place] [address] PCP - General Internal Medicine 07/21/22 Mikel Lino MD [address] [place] [address] PCP - ACO Reach 07/27/22 Favian Fernández, CERTIFIED ORTHOTIST/PEDORTHIST [address] [place] [address] Nurse Practitioner Family Medicine 07/21/22 Corn Miller Relationship Specialty Start Date End Date Mikel Lino MD [address] [place] [address] PCP - General Internal Medicine 07/21/22 Mikel Lino MD [address] [place] [address] PCP - ACO Reach 07/27/22 Favian Fernández, CERTIFIED ORTHOTIST/PEDORTHIST [address] [place] [address] Nurse Practitioner Family Medicine 07/21/22 Corn Miller Relationship Specialty Start Date End Date Mikel Lino MD [address] [facility] [address] [place] [address] PCP - General Internal Medicine 07/21/22 Mikel Lino MD [address] [facility] [address] [place] [address] PCP - ACO Reach 07/27/22 Favian Fernández NP [address] [facility] [address] [place] [address] Nurse Practitioner Family Medicine 07/21/22 Reason for [...] BE BASED ON THE PRIMARY CLINICAL RECORDS. [employer] provides no warranty or guarantee of the accuracy or completeness of information in this document.
[2023-06-09 11:37] LABS: Basophils Absolute Auto 0.1 10^3/uL (0.0-0.1); Basophils Percent Auto 1.3 % (0.2-2.0); Eosinophils Absolute Auto 0.3 10^3/uL (0.0-0.7); Eosinophils Percent Auto 4.4 % (0.9-7.0); Hematocrit 32.8 % (36.0-48.0); Hemoglobin 10.7 g/dL (12.0-16.0); Immature Granulocytes Abs Auto 0.03 10^3/uL (0.00-0.03); Immature Granulocytes Pct Auto 0.4 % (0.0-0.5); Lymphocytes Absolute Auto 1.4 10^3/uL (1.2-3.8); Lymphocytes Percent Auto 19.2 % (20.5-60.0); Mean Corpuscular HGB Conc 32.6 g/dL (29.9-35.2); Mean Corpuscular Hemoglobin 30.7 pg (26.7-34.0); Mean Platelet Volume 9.5 fL (9.5-13.5); Monocytes Absolute Auto 0.8 10^3/uL (0.3-0.8); Neutrophils Absolute Auto 4.5 10^3/uL (1.4-6.5); Neutrophils Percent Auto 63.7 % (43.0-75.0); Platelet Count 259 10^3/uL (150-450); Red Blood Count 3.49 10^6/uL (4.20-5.40); Red Cell Distribution Width 12.5 % (11.0-15.0); White Blood Count 7.1 10^3/uL (4.0-11.0)
[2023-06-09 12:05] LABS: Alanine Aminotransferase 18 U/L (14-59); Alkaline Phosphatase 94 U/L (46-116); Anion Gap 11.5; Aspartate Amino Transferase 14 U/L (15-37); BUN Creatinine Ratio 18.7; Bilirubin Total 0.5 mg/dL (0.2-1.0); Calcium 9.1 mg/dL (8.5-10.1); Carbon Dioxide 26.8 mmol/L (21.0-32.0); Chloride 106 mmol/L (98-107); Estimated GFR (African America >60 (>=60); Estimated GFR (Non-African Ame >60 (>=60); Globulin 3.1 g/dL; Glucose 100 mg/dL (74-106); Potassium 4.3 mmol/L (3.5-5.1); Sodium 140 mmol/L (136-145); Total Protein 6.1 g/dL (6.4-8.2); Troponin I High Sensitivity 4.3 pg/mL (4.0-51.3)
[2023-06-09 12:16] LABS: D Dimer 1.99 mg/L FEU (<=0.59)
--- NOTE | 2023-06-09 12:25 | CT_ITS ---
The [address] [address] Patient Name: JOSE SANTOYO MRN: [id number] date: 1935 Sex: F Assigned Patient Location: ER Current Patient Location: ER Accession/Order Number: [id number] Exam Date: 06/09/2023 12:50 Report Date: 06/09/2023 15:02 At the request of: DEEPIKA BOLANOS Procedure: CT angio chest PROCEDURE: CT angio chest CLINICAL INDICATION: 88 years Female Syncope COMPARISONS: None.. TECHNIQUE: Chest CT angiogram was performed following intravenous administration of 100 mL of Omnipaque 350. Additional volume rendered images were also obtained. Coronal and sagittal reformations were created. Individualized dose optimization technique was used for the procedure performed. FINDINGS: There is no evidence of pulmonary embolus. No aortic aneurysm or dissection is seen. Visualized thyroid gland appears unremarkable. Trachea and mainstem bronchi are patent. There is no hilar, mediastinal or axillary adenopathy. There are mild bibasilar atelectatic changes. There is no pleural or pericardial effusion. There is no lung consolidation. There is a small hiatal hernia. Cholecystectomy clips are seen. There is suggestion of a subcentimeter enhancing pancreatic tail mass. There are mild multilevel arthritic changes of the thoracic spine. CT/CT angio chest IMPRESSION: 1. No evidence of pulmonary embolus, aortic aneurysm or dissection. 2. Mild bibasilar atelectatic changes. 3. Suggestion for subcentimeter enhancing pancreatic tail mass. Follow-up contrast enhanced CT scan as per pancreatic mass protocol is recommended for confirmation. Electronically authenticated by: JOSE ALBERTO ELMORE Date: 06/09/2023 15:02
== END 2023-06-09 16:10 | disposition home or self-care (01) ==
PROVIDERS: Emergency Provider Emergency Medicine Emergency Medical Services; PCP Internal Medicine
DX: R55 Syncope and collapse (principal); K21.9 Gastro-esophageal reflux disease without esophagitis; I10 Essential (primary) hypertension; R79.1 Abnormal coagulation profile; Z79.899 Other long term (current) drug therapy
CPT/HCPCS: 36415; 71045; 71275; 80053; 83605; 83735; 84484; 85025; 85378; 93005; 96360; 96361; 99285; Q9967

== ENCOUNTER 2023-08-28 14:12 | Outpatient (OUT) | payer MEDICARE, OTHER, SELFPAY ==
--- NOTE | 2023-08-28 | XR_ITS ---
The [address] [address] Patient Name: JOSE SANTOYO MRN: [id number] date: 1935 Sex: F Assigned Patient Location: Current Patient Location: Accession/Order Number: [id number] Exam Date: 08/28/2023 14:28 Report Date: 08/28/2023 15:09 At the request of: KANDIS LOPEZ Procedure: XR ankle GOPAL min 3V EXAMINATION: XR ankle GOPAL min 3V HISTORY: BILATERAL ANKLE PAIN COMPARISON: No relevant comparison available. FINDINGS: RIGHT FINDINGS: BONES: No acute fracture or dislocation. Mild to moderate enthesopathic spurring of the calcaneus at the Achilles and plantar insertions SOFT TISSUES: Negative. No visible soft tissue swelling. OTHER: Negative. LEFT FINDINGS: BONES: No acute fracture or dislocation. Mild to moderate enthesopathic spurring of the calcaneus at the Achilles and plantar insertions SOFT TISSUES: Negative. No visible soft tissue swelling. OTHER: Negative. 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
--- OUTSIDE RECORDS SUMMARY | 2023-08-28 14:23 | XMS_ITS | CCD ---
Author Organization [facility] Care Team Providers Care Antenna Design Engineer Name Role Phone MIKEL LINO Primary Care Physician DR MIKEL LINO Primary Care Unavailable HOLLAND, DR LIMA Consulting Unavailable HOLLAND, DR LIMA Attending Unavailable HOLLAND, DR LIMA Admitting Unavailable EUNICE, DR TEZ Ceja Consulting Unavailable HOLLAND, DR LIMA Primary Care Unavailable JOSE RSHOSHANA GARCIA Admitting Unavailable JOSER SHOSHANA MICHELE Attending Unavailable HOLLAND, DR LIMA Primary Care Unavailable KANDIS MARC Admitting Unavailable KANDIS MARC Attending Unavailable HOLLAND, DR LIMA Primary Care Unavailable SIMI FERNÁNDEZ Admitting Unavailable SIMI FERNÁNDEZ Attending Unavailable ELDER, DR MELLISSA Salter Consulting Unavailable SIMI FERNÁNDEZ Consulting Unavailable EUNICE, DR TEZ Ceja Consulting Unavailable HOLLAND, DR LIMA Primary Care Unavailable KANDIS MARC Admitting Unavailable KANDIS MARC Attending Unavailable KANDIS MARC Consulting Unavailable Mikel Lino MD Primary Care Provider Simi Fernández NP Unavailable Mikel Lino MD Unavailable Rashaad Sullivan Primary Care Physician [phone] MIKEL LINO Attending Unavailable RONALD MONTEZ Attending Unavailable MIKEL LINO Attending Unavailable RONALD MONTEZ Attending Unavailable MIKEL LINO Attending Unavailable RONALD MONTEZ Attending Unavailable MIKEL LINO Attending Unavailable SIMI FERNÁNDEZ Attending Unavailable RONALD MONTEZ Attending Unavailable RONALD MONTEZ Attending Unavailable Rashaad Sullivan Attending Unavailable Rashaad Sullivan Attending Unavailable Alin ANGEL Attending Unavailable Alin ANGEL Attending Unavailable Gene Mercado Attending Unavailable Rashaad Sullivan Referring Unavailable Gene Mercado Admitting Unavailable Gene Mercado Attending Gene Duong Referring Erickson Duckworth Consulting MD Erickson Ramirez Consulting Erickson Ac Consulting Rashaad Lora Attending Rashaad Wooten Attending Salma Allergies Allergy Classification Reported Allergen(s) Allergy Type Date of Onset Reaction(s) Facility (5 sources) Adhesive Tape; Translations: [Tape] Propensity to adverse reactions to substance Unknown Reaction [facility] (5 sources) Amoxicillin Drug Allergy 08-24-19 [facility] (5 sources) Nitrofurantoin Drug Allergy 08-24-19 [facility] (5 sources) Other Propensity to adverse reactions 10-14-19 Unknown [facility] Work Phone: (1 source) No Known Medication Allergies; Translations: [No Known Medication Allergies] Propensity to adverse reactions (disorder) [facility] Repository NEGATED: Highlighted row has been ruled out! (1 source) Drug allergy [facility] NEGATED: Highlighted row has been ruled out! (1 source) Drug allergy [facility] NEGATED: Highlighted row has been ruled out! (1 source) Drug allergy [facility] NEGATED: Highlighted row has been ruled out! (1 source) Drug allergy [facility] Medications Current Medications Medication Drug Class(es) Dates Sig (Normalized) Sig (Original) ALPRAZolam 0.25 mg oral tablet (7 sources) Benzodiazepine Start: 06-28-2023 take 1 tablet by mouth every eight hours as needed for anxiety Xanax 0.25 mg Tab 0.25 mg = 1 tab(s), Oral, q8hr, PRN Anxiety, # 8 tab(s), Refills(s) 0, Pharmacy: [facility]/pharmacy #[id number], 165, cm, 06/28/23 11:45:00 EDT, Height/Length Dosing, 77.1, kg, 06/28/23 11:45:00 EDT, Weight Dosing Start Date: 06/28/23 Status: Ordered Start: 08-23-2022 take 1 tablet by meryl th every six hours for anxiety ALPRAZolam (Xanax) 0.25 MG tablet Indications: Generalized anxiety disorder (CMS/HCC) Take 1 tablet (0.25 mg) by mouth every 6 (six) hours if needed for anxiety. 30 tablet 0 08/23/2022 Active amLODIPine 5 mg oral tablet (5 sources) Dihydropyridine Calcium Channel Gabriel Start: 07-12-2023 take 1 tablet by mouth once daily amLODIPine 5 mg Tab 5 mg = 1 tab(s), Oral, Daily, # 30 tab(s), Refills(s) 5, Pharmacy: [facility]/pharmacy #[id number], 165, cm, 06/29/23 9:31:00 EDT, Height/Length Dosing, 77.2, kg, 06/29/23 9:31:00 EDT, Weight Dosing Start Date: 07/12/23 Status: Ordered Start: 06-29-2023 take 1 tablet by meryl th once daily Norvasc 2.5 mg Tab 2.5 mg = 1 tab(s), Oral, Daily, # 30 tab(s), Refills(s) 6, Pharmacy: [facility]/pharmacy #[id number], 165, cm, 06/29/23 9:31:00 EDT, Height/Length Dosing, 77.2, kg, 06/29/23 9:31:00 EDT, Weight Dosing Start Date: 06/29/23 Status: Ordered carvedilol 12.5 mg oral tablet (5 sources) [...] procedure, # 2 tab(s), Refills(s) 0, Pharmacy: [facility]/pharmacy #[id number], 165, cm, 06/29/21 16:13:00 EDT, [...] 0 Active esomeprazole 40 mg oral tablet (9 sources) Proton Pump Inhibitor Start: 09-22-2015 take [...] MonFri, # 42.5 gm, Refills(s) 5, Pharmacy: [facility]/pharmacy #[id number], 165, cm, 06/29/21 16:13:00 EDT, Height/Length Dosing, 80, kg, 06/29/21 16:13:00 EDT, Weight Dosing Start Date: 06/29/21 Status: Ordered fexofenadine hydrochloride 180 mg oral tablet (6 sources) Histamine-1 Receptor Antagonist Start: 06-13-2023 take 1 tablet by mouth once daily fexofenadine 180 mg Tab 180 mg = 1 tab(s), Oral, Daily, Refills(s) 0 Start Date: 06/13/23 Status: Ordered Start: 04-09-2023 take 1 tablet by meryl once daily fexofenadine (Анна) 180 MG tablet Indications: Dermatographism Take 1 tablet daily, by mouth, 30 days 30 tablet 11 04/09/2023 Active fluticasone propionate 0.05 mg/actuat metered dose nasal spray (5 sources) Corticosteroid fluticasone (Flonase) 50 MCG/ACT nasal spray SPRAY 1 SPRAY INTO EACH NOSTRIL EVERY DAY FOR 30 DAYS for 60 0 Active hyoscyamine sulfate 0.125 mg sublingual tablet (5 sources) Start: 05-26-19 hyoscyamine (Levsin) 0.125 MG SL tablet DISSOLVE 1 TABLET UNDER TONGUE EVERY 6 HOURS NEEDED FOR IRRITABLE BOWEL SYNDROME 0 05/25/2022 Active lisinopril 20 mg oral tablet (7 sources) Angiotensin Converting Enzyme Inhibitor Start: 01-10-20 End: 01-09-20 24 take 1 tablet by mouth in the morning lisinopril 20 MG tablet Indications: Benign essential hypertension (CMS/HCC) Take 1 tablet (20 mg) by mouth in the morning. 90 tablet 3 01/09/2023 01/09/2024 Active Start: 09-22-2015 take 20 mg by mouth once daily lisinopril 20 mg, Oral, Daily, Refills(s) 0, High blood pressure Start Date: 09/22/15 Status: Ordered losartan potassium 25 mg oral tablet (4 sources) Angiotensin 2 Receptor Gabriel Start: 06-29-2023 take 1 tablet by mouth once daily losartan 25 mg Tab 25 mg = 1 tab(s), Oral, Daily, # 30 tab(s), Refills(s) 6, Pharmacy: [facility]/pharmacy #[id number], 165, cm, 06/29/23 9:31:00 EDT, Height/Length Dosing, 77.2, kg, 06/29/23 9:31:00 EDT, Weight Dosing Start Date: 06/29/23 Status: Ordered tacrolimus 0.001 mg/mg topical ointment (4 sources) Calcineurin Inhibitor Immunosuppressant Start: 04-09-2023 tacrolimus (Protopic) 0.1 % ointment Indications: Other atopic dermatitis Apply to affected areas, twice a day when flared, 30 day supply 60 g 11 04/09/2023 Active traZODone hydrochloride 50 mg oral tablet (2 sources) Serotonin Reuptake Inhibitor Start: 06-28-2023 traZODONE 50 mg Tab 25 mg = 0.5 tab(s), Oral, Once a day (at bedtime), # 15 tab(s), Refills(s) 0, [id number], 165, cm, 06/28/23 11:45:00 EDT, Height/Length Dosing, 77.1, kg, 06/28/23 11:45:00 EDT, Weight Dosing Start Date: 06/28/23 Status: Ordered triamcinolone acetonide 1 mg/ml topical cream (5 sources) Corticosteroid Start: 03-12-2023 triamcinolone (Kenalog) 0.1 % cream Indications: Other atopic dermatitis Apply to affected areas, up to twice a day when flared, do not use one the face, groin, or underarms, 30 day supply 454 g 11 03/12/2023 Active Completed/Discontinued Medications Medication Drug Class(es) Dates Sig (Normalized) Sig (Original) psyllium 525 mg oral capsule (4 sources) Start: 05-04-2020 take 8 capsules by mouth once daily Metamucil 525 mg oral capsule 1,050 mg = 2 cap(s), Oral, Daily, Take 2 hour apart from the other medications with at least 8 ounces of water, # 160 cap(s), Refills(s) 1, Pharmacy: [facility]/pharmacy #[id number], 165, cm, 05/04/20 8:44:00 EST, Height/Length Dosing, 88.2, kg, 05/04/20 8:44:00 EST, Weight Dosing Start Date: 05/04/20 Status: Ordered Problems Active Problems Problem Classification Problem Date Documented Da te Episodic/Chronic Anxiety disorders (7 sources) Generalized anxiety disorder; Translations: [Generalized anxiety disorder] Onset: 3 08-23-2022 Chronic Cancer of uterus (9 sources) History of malignant neoplasm of uterine body; Translations: [Personal history of malignant neoplasm of other parts of uterus] Onset: 3 08-31-2018 Episodic Esophageal disorders (9 sources) Gastroesophageal reflux disease; Translations: [Gastro-esophageal reflux disease without esophagitis] Onset: 3 08-31-2018 Chronic Essential hypertension (17 sources) Hypertensive disorder; Translations: [Benign essential hypertension] Onset: 3 Resolved: 4 08-31-2018 Chronic Genitourinary symptoms and ill-defined conditions (5 sources) Urinary incontinence; Translations: [Unspecified urinary incontinence] Onset: 3 08-23-2022 Chronic Genitourinary symptoms and ill-defined conditions (4 sources) H/O: urethral stricture 12-30-2019 Episodic Heart valve disorders (1 source) Heart murmur; Translations: [Cardiac murmur, unspecified] Onset: 4 Episodic Menopausal disorders (9 sources) Other primary ovarian failure; 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] Onset: 2 Chronic Mood disorders (7 sources) Depressive disorder; Translations: [Depression] Onset: 3 08-23-2022 Chronic Osteoarthritis (20 sources) Unilateral primary osteoarthritis, left knee; Translations: [Primary gonarthrosis, bilateral] Onset: 5 Resolved: 4 08-23-2022 Chronic Osteoporosis (6 sources) Age-related osteoporosis without current pathological fracture; Translations: [Osteoporosis] Onset: 2 08-23-2022 Chronic Other acquired deformities (5 sources) Contracture of joint of left ankle; Translations: [Contracture, left ankle] Onset: 3 08-23-2022 Chronic Other connective tissue disease (5 sources) Tendinitis of left posterior tibial tendon; Translations: [Posterior tibial tendinitis, left leg] Onset: 3 02-05-2023 Episodic Other diseases of bladder and urethra (15 sources) Urethral stricture; Translations: [Unspecified urethral stricture, [...] [Obesity, unspecified] Onset: 0 01-09-2023 Chronic Other nutritional; endocrine; and metabolic disorders (3 sources) Overweight in adulthood with body mass index of 25 or more but less than 30; Translations: [Body mass index (BMI) 28.0-28.9, adult] Onset: 4 Episodic Other upper respiratory infections (5 sources) Sinusitis; Translations: [Chronic sinusitis, unspecified] Onset: 3 08-23-2022 Chronic Residual codes; unclassified (7 sources) Insomnia; Translations: [Insomnia, unspecified] Onset: 3 08-23-2022 Episodic Residual codes; unclassified (1 source) Patient encounter status; Translations: [Other specified health status] Onset: 4 Episodic Spondylosis; intervertebral disc disorders; other back problems (10 sources) Cervical spondylosis; Translations: [Spondylosis without myelopathy or radiculopathy, cervical region] Onset: 3 08-23-2022 Chronic Syncope (3 sources) Syncope and collapse; Translations: [Syncope and collapse] Onset: 4 Episodic Urinary tract infections (11 sources) Chronic cystitis; Translations: [Other chronic cystitis [...] Translations: [Localized edema] Onset: 08-23-2022 08-23-2022 Episodic Results Test Name Value Interpretation Reference Range Facility Family Medicine Office/Clini c Noteon 07-26-2023 Family Medicine Office/Clinic Note HPI Staff Aparicio is an 88 year old female presenting for one month follow up anxiety VEENA try prn xanax. She never used it said she didn't need it Follow up for Mental Status: Medication adherence- No, isnt taking medication as prescribed says she didn't need it Medication refill needed: _ Suicidal thoughts-Not at this time Most recent CHEIKH: 8 Most recent PHQ: 0 questions/concerns: still has ankle swelling and pain, pain when stands on it not when sitting. Dr Marc put her on meloxicam History of Present Illness - See staff HPI. Review of Systems PHQ Score Initial Depression Screen Score: 0 SCORE Physical Exam Vitals & Measurements T: 36.2 ?C(Temporal Artery) HR: 77(Peripheral) BP: 138/68 SpO2: 97% HT: 65 in HT: 165 cm WT: 77.2 kg WT: 169.84 lb BMI: 28.36 General: alert, no acute distress ENMT: oral mucosa moist, Cardiovascular: regular rate and rhythm, normal peripheral perfusion Respiratory: Lungs CTA, respirations non labored Extremities: no deformity, no trauma Neurological: oriented x 4, LOC appropriate for age, CN II-XII intact, motor strength equal & normal bilaterally, speech normal Abdomen: Soft, Nontender, Non-distended, + BS Assessment/Plan 1. Anxiety (F41.9: Anxiety disorder, unspecified) - Doing better. - Did not have to take the Anxiety meds - Still has it just in case Ordered: Body Mass Index (BMI) documented 3008F Current tobacco non-user 1036F Depression Screening Negative 3352F Most recent diastolic blood pressure <80 mm Hg 3078F Most recent systolic blood pressure >= 140 mm Hg 3077F Patient screen for fall risk: no falls in last year or 1 fall with no injury in last year 1101F 2. Hypertension (I10: Essential (primary) hypertension) - Still elevated when she comes in. - Cardio recently increased - Continue to monitor Ordered: Body Mass Index (BMI) documented 3008F Current tobacco non-user 1036F Depression Screening Negative 3352F Most recent diastolic blood pressure <80 mm Hg 3078F Most recent systolic blood pressure >= 140 mm Hg 3077F Patient screen for fall risk: no falls in last year or 1 fall with no injury in last year 1101F 3. Insomnia (G47.00: Insomnia, unspecified) - Did not take the meds - Still has them and will start if needed Ordered: Body Mass Index (BMI) documented 3008F Current tobacco non-user 1036F Depression Screening Negative 3352F Most recent diastolic blood pressure <80 mm Hg 3078F Most recent systolic blood pressure >= 140 mm Hg 3077F Patient screen for fall risk: no falls in last year or 1 fall with no injury in last year 1101F 4. BMI 28.0-28.9,adult (Z68.28: Body mass index [BMI] 28.0-28.9, adult) - BMI education given Ordered: Body Mass Index (BMI) documented 3008F Current tobacco non-user 1036F Depression Screening Negative 3352F Most recent diastolic blood pressure <80 mm Hg 3078F Most recent systolic blood pressure >= 140 mm Hg 3077F Patient screen for fall risk: no falls in last year or 1 fall with no injury in last year 1101F 5. Over weight (E66.3: Overweight) - Diet and exercise advised Ordered: Body Mass Index (BMI) documented 3008F Current tobacco non-user 1036F Depression Screening Negative 3352F Most recent diastolic blood pressure <80 mm Hg 3078F Most recent systolic blood pressure >= 140 mm Hg 3077F Patient screen for fall risk: no falls in last year or 1 fall with no injury in last year 1101F 6. Nonsmoker (Z78.9: Other specified health status) - Please continue to not smoke. Ordered: Body Mass Index (BMI) documented 3008F Current tobacco non-user 1036F Depression Screening Negative 3352F Most recent diastolic blood pressure <80 mm Hg 3078F Most recent systolic blood pressure >= 140 mm Hg 3077F Patient screen for fall risk: no falls in last year or 1 fall with no injury in last year 1101F Orders: amlodipine, 5 mg = 1 tab(s), Oral, Daily, # 90 tab(s), Refills(s) 1, Pharmacy: [facility] #[id number], 165, cm, 07/26/23 10:30:00 EDT, Height/Length Dosing, 77.2, kg, 07/26/23 10:30:00 EDT, Weight Dosing Follow-up No qualifying data available Patient Education BMI for Adults Hypertension, Adult Problem List/Past Medical History Ongoing Anxiety BMI 26.0-26.9,adult Chronic cystitis Chronic GERD History of uterine cancer Hypertension Insomnia Other urethral stricture, female Syncope Unspecified urethral stricture, female Historical H/O urethral stricture Procedure/Surgical History UD - Urethral dilatation (12/19/2022), Cystourethroscopy with dilation of urethral stricture (04/04/2022), Dilation of urethra (06/29/2021), UD - Urethral dilatation (10/12/2020), Colonoscopy (05/13/2020), UD - Urethral dilatation (12/30/2019), Urethral dilatation (04/01/2019), Urethral dilatation - female (09/10/2018), Cystoscopy (02/19/2018), Urodynamics (01/16/2018), UD - Urethral dilatation (08/17/2017), Cholecystectomy, Hysterectomy. Medications amLODIPin (more content not included)... [facility] Comment on above: Result Comment: Elec tronically Signed By: Nate GUILLERMO, Rashaad Gastelum\.br\Date and Time Signed: 07/26/23 10:38 EDT Patient Educationon 07-26-19 Patient Education Cardiovascular Hypertension, Adult High blood pressure (hypertension) is when the force of blood pumping through the arteries is too strong. The arteries are the blood vessels that carry blood from the heart throughout the body. Hypertension forces the heart to work harder to pump blood and may cause arteries to become narrow or stiff. Untreated or uncontrolled hypertension can lead to a heart attack, heart failure, a stroke, kidney disease, and other problems. A blood pressure reading consists of a higher number over a lower number. Ideally, your blood pressure should be below 120/80. The first ( top ) number is called the systolic pressure. It is a measure of the pressure in your arteries as your heart beats. The second ( bottom ) number is called the diastolic pressure. It is a measure of the pressure in your arteries as the heart relaxes. What are the causes? The exact cause of this condition is not known. There are some conditions that result in high blood pressure. What increases the risk? Certain factors may make you more likely to develop high blood pressure. Some of these risk factors are under your control, including: ? Smoking. ? Not getting enough exercise or physical activity. ? Being overweight. ? Having too much fat, sugar, calories, or salt (sodium) in your diet. ? Drinking too much alcohol. Other risk factors include: ? Having a personal history of heart disease, diabetes, high cholesterol, or kidney disease. ? Stress. ? Having a family history of high blood pressure and high cholesterol. ? Having obstructive sleep apnea. ? Age. The risk increases with age. What are the signs or symptoms? High blood pressure may not cause symptoms. Very high blood pressure (hypertensive crisis) may cause: ? Headache. ? Fast or irregular heartbeats (palpitations). ? Shortness of breath. ? Nosebleed. ? Nausea and vomiting. ? Vision changes. ? Severe chest pain, dizziness, and seizures. How is this diagnosed? This condition is diagnosed by measuring your blood pressure while you are seated, with your arm resting on a flat surface, your legs uncrossed, and your feet flat on the floor. The cuff of the blood pressure monitor will be placed directly against the skin of your upper arm at the level of your heart. Blood pressure should be measured at least twice using the same arm. Certain conditions can cause a difference in blood pressure between your right and left arms. If you have a high blood pressure reading during one visit or you have normal blood pressure with other risk factors, you may be asked to: ? Return on a different day to have your blood pressure checked again. ? Monitor your blood pressure at home for 1 week or longer. If you are diagnosed with hypertension, you may have other blood or imaging tests to help your health care provider understand your overall risk for other conditions. How is this treated? This condition is treated by making healthy lifestyle changes, such as eating healthy foods, exercising more, and reducing your alcohol intake. You may be referred for counseling on a healthy diet and physical activity. Your health care provider may prescribe medicine if lifestyle changes are not enough to get your blood pressure under control and if: ? Your systolic blood pressure is above 130. ? Your diastolic blood pressure is above 80. Your personal target blood pressure may vary depending on your medical conditions, your age, and other factors. Follow these instructions at home: Eating and drinking ? Eat a diet that is high in fiber and potassium, and low in sodium, added sugar, and fat. An example of this eating plan is called the DASH diet. DASH stands for Dietary Approaches to Stop Hypertension. To eat this way: ? Eat plenty of fresh fruits and vegetables. Try to fill one half of your plate at each meal with fruits and vegetables. ? Eat whole grains, such as whole-wheat pasta, brown rice, or whole-grain bread. Fill about one fourth of your plate with whole grains. ? Eat or drink low-fat dairy products, such as skim milk or low-fat yogurt. ? Avoid fatty cuts of meat, processed or cured meats, and poultry with skin. Fill about one fourth of your plate with lean proteins, such as fish, chicken without skin, beans, eggs, or tofu. ? Avoid pre-made and processed foods. These tend to be higher in sodium, added sugar, and fat. ? Reduce your daily sodium intake. Many people with hypertension should eat less than 1,500 mg of sodium a day. ? Do not drink alcohol if: ? Your health care provider tells you not to drink. ? You are , may be , or are planning to become . ? If you drink alcohol: ? Limit how much you have to: ? 0?1 drink a day for women. ? 0?2 drinks a day for men. ? Know how much alcohol is in your drink. In the [place] one drink equals one 12 oz bottle of beer (355 mL), one 5 oz glass of wine (148 mL), or one 1? oz glass (more content not included)... [facility] Reminderson 07-20-2023 Reminders - From: Camryn Fitch To: [facility] - Recalls Lonny; Sent: 07/20/2023 11:34:40 EDT Show up: 01/04/2024 11:34:00 EDT Subject: UD Due Date/Time: 01/28/2024 11:34:00 EST Reminder/Recall Patient is due in mar 2024 for 6 month UD [facility] Reminders - From: Camryn Fitch To: [facility] - Recalls Lonny; Cc: Camryn Fitch; Sent: 11/17/2022 14:01:55 EDT Show up: 05/04/2023 14:01:00 EST Subject: cysto/UD Due Date/Time: 05/21/2023 14:01:00 EDT Reminder/Recall Patient is due in June 2023 for 6 month UD (possible cysto) l/m on home machine.LG l/m on home machine.LG Patient called back, sched for 09/11/23. She will be due in Mar 2024.LG Maxine [facility] Consent for Treatmenton 05- Consent for Treatment [id number] 0TIFF [facility] Ambulatory Visit Summaryon 0 06-29-2023 Ambulatory Visit Summary ALESSANDRA SALAZAR :1935 Visit Date:06/29/2023 Ambulatory Visit Instructions Your Diagnosis Syncope Hypertension Murmur BMI 28.0-28.9,adult Non-smoker Your Care Team Attending Physician - Gene Mercado MD Primary Care Physician - Rashaad Sullivan MD. Referring Physician - Rashaad Sullivan MD. This Is Your Medications List alprazolam (Xanax 0.25 mg Tab) amlodipine (Norvasc 2.5 mg Tab) esomeprazole (Nexium) fexofenadine (fexofenadine 180 mg Tab) losartan (losartan 25 mg Tab) psyllium (Metamucil 525 mg oral capsule) trazodone (traZODONE 50 mg Tab) Procedures Performed UD - Urethral dilatation (12/19/2022), Cystourethroscopy with dilation of urethral stricture (04/04/2022), Dilation of urethra (06/29/2021), UD - Urethral dilatation (10/12/2020), Colonoscopy (05/13/2020), UD - Urethral dilatation (12/30/2019), Urethral dilatation (04/01/2019), Urethral dilatation - female (09/10/2018), Cystoscopy (02/19/2018), Urodynamics (01/16/2018), UD - Urethral dilatation (08/17/2017), Cholecystectomy, Hysterectomy. Discharge Vitals Heart Rate (Peripheral) 80 Respiratory Rate 18 Blood Pressure 146/78 Height 165 cm Height 65 in Weight 77.2 kg Weight 169.84 lb BMI 28.36 What to do next Scheduled Follow-Up Appointments July. 2023 10:15 AM EDT With: Rashaad Sullivan MD Where: [facility] [place] [facility] Heart and Vascular Office/Cl inic Noteon 06-29-2023 Heart and Vascular Office/Clinic Note Chief Complaint New patient, here for syncope, stress. Pt does have HTN. First episode was 01/05/23 was admited to [facility]. Since then has had 2 other episode 05/2023 and 06/09/23 pt went to [facility] again 06/09/23. Pt will begin to feel weak. Pt does have history of syncope from History of Present Illness The patient is a very pleasant 88-year-old female who presents for cardiac evaluation due to recurrent syncopal spells. She states that she has been having those for all her life, starting in high school. Usually, it is provoked by situational issues, such as seeing blood, cutting herself, long standing, etc. She usually does have some premonitory symptoms. The patient has a history of longstanding hypertension and was on lisinopril for a long time. More recently, lisinopril was switched to carvedilol due to apparently some issues with itching and lip swelling. This issues, however, do persist. Ever since the switch, she passed out 2 times under similar circumstances. She presented to the emergency department in [facility] after such a spell, her workup included pretty unremarkable ECGs. Currently taking carvedilol 12.5 mg twice daily. She presents today with her daughter. Review of Systems PHQ Score Initial Depression Screen Score: 0 SCORE ROS - Provider Constitutional: no fever, no chills, no fatigue Skin:no rash, no lesions ENMT: no ear pain, no sore throat, no congestion. Respiratory: no shortness of breath, no cough, no wheezing. Cardiovascular: no chest pain, no palpitations, no edema. Gastrointestinal: no nausea, no vomiting, no diarrhea, no GI bleeding. Genitourinary: no dysuria, no frequencyno hematuria Musculoskeletal: no back pain, no trauma. Neurologic: no headache, no dizziness, no numbness, no weakness. Psychiatric: no sleeping problems, no irritability, no mood swings/depression. Heme/Lymph: no bleeding tendency, no bruising tendency, no petechiae, Allergy/Immuno logic: no seasonal allergies, no food allergies, no recurrent infections Physical Exam Vitals & Measurements HR: 80(Peripheral) RR: 18 BP: 146/78 SpO2: 95% HT: 65 in HT: 165 cm WT: 77.2 kg WT: 169.84 lb BMI: 28.36 General: alert, no acute distress Neck: Supple, noJVD nocarotid bruit Cardiovascular: regular rate and rhythm, systolic murmur 2 out of 6 over left anterior precordium with no radiation. Normal peripheral perfusion Respiratory: Lungs CTAB, respirations non labored Extremities: no edema left lower extremity. no edema right lower extremity Neurological: oriented x 4, LOC appropriate for age, speech normal Skin: Warm, dry, intact- no rash or concerning lesions Procedure ECG shows normal sinus rhythm and normal intervals Assessment/Plan 1. Syncope (R55: Syncope and collapse) The patient presents with classic vasovagal syncope. I do not believe further cardiac workup is necessary for this specific reason. The patient was made aware about the rationale and possible solutions when she is feeling it coming. 2. Hypertension (I10: Essential (primary) hypertension) Blood pressure is elevated. I believe that carvedilol might be contributory to the syncopal spells, as this can blunt her heart rate. I suggested to stop it gradually. I will take the liberty to put the patient on losartan 25 mg along with amlodipine 2.5 mg daily. The patient was suggested to give me a call with her home blood pressure readings. 3. Murmur (R01.1: Cardiac murmur, unspecified) Transthoracic echocardiogram 4. BMI 28.0-28.9,adult (Z68.28: Body mass index [BMI] 28.0-28.9, adult) 5. Non-smoker (Z78.9: Other specified health status) I spent about 45 minutes for the patient's encounter, including chart review, seeing and examining the patient, documentation time Follow-up No qualifying data available 6 months. Problem List/Past Medical History Ongoing Anxiety BMI 26.0-26.9,adult Chronic cystitis Chronic GERD History of uterine cancer Hypertension Insomnia Other urethral stricture, female Syncope Unspecified urethral stricture, female Historical H/O urethral stricture Procedure/Surgical History UD - Urethral dilatation (12/19/2022), Cystourethroscopy with dilation of urethral stricture (04/04/2022), Dilation of urethra (06/29/2021), UD - Urethral dilatation (10/12/2020), Colonoscopy (05/13/2020), UD - Urethral dilatation (12/30/2019), Urethral dilatation (04/01/2019), Urethral dilatation - female (09/10/2018), Cystoscopy (02/19/2018), Urodynamics (01/16/2018), UD - Urethral dilatation (08/17/2017), Cholecystectomy, Hysterectomy. Medications fexofenadine 180 mg Tab, 180 mg= 1 tab(s), Oral, Daily losartan 25 mg Tab, 25 mg= 1 tab(s), Oral, Daily Metamucil 525 mg oral capsule, 1050 mg= 2 cap(s), Oral, Daily, 1 refills Nexium, 40 mg, Oral, Daily Norvasc 2.5 mg Tab, 2.5 mg= 1 tab(s), Oral, Daily traZODONE 50 mg Tab, 25 mg= 0.5 tab(s), Oral, Once a day (at bedtime) Xanax 0.25 mg Tab, 0.25 mg= 1 tab(s), Oral, q8hr, PRN Allergies N (more content not included)... Normal [facility] Comment on above: Result Comment: Elec tronically Signed By: Jess GUILLERMO, Gene Goodman\.br\Date and Time Signed: 06/29/23 10:54 EDT Physician Orderon 06-29-2023 Physician Order [id number] 0TIFF [facility] Ambulatory Visit Summaryon 0 06-28-2023 Ambulatory Visit Summary ALESSANDRA SALAZAR :1935 Visit Date:06/28/2023 Ambulatory Visit Instructions Your Diagnosis Anxiety Hypertension BMI 28.0-28.9,adult Overweight Nonsmoker Your Care Team Attending Physician - Rashaad Sullivan MD Primary Care Physician - Rashaad Sullivan MD This Is Your Medications List alprazolam (Xanax 0.25 mg Tab) carvedilol (carvedilol 12.5 mg Tab) trazodone (traZODONE 50 mg Tab) Contact prescribing physician if questions or concerns esomeprazole (Nexium) fexofenadine (fexofenadine 180 mg Tab) psyllium (Metamucil 525 mg oral capsule) [Image Removed: STOP]Stop taking these medications hydrOXYzine (hydrOXYzine hydrochloride 10 mg Tab) hydrochlorothiazide (hydrochlorothiazide 25 mg Tab) Procedures Performed UD - Urethral dilatation (12/19/2022), Cystourethroscopy with dilation of urethral stricture (04/04/2022), Dilation of urethra (06/29/2021), UD - Urethral dilatation (10/12/2020), Colonoscopy (05/13/2020), UD - Urethral dilatation (12/30/2019), Urethral dilatation (04/01/2019), Urethral dilatation - female (09/10/2018), Cystoscopy (02/19/2018), Urodynamics (01/16/2018), UD - Urethral dilatation (08/17/2017), Cholecystectomy, Hysterectomy. Discharge Vitals Temperature (Temporal Artery) 37.0 ?C Heart Rate (Peripheral) 66 Respiratory Rate 16 Blood Pressure 152/70 Height 165 cm Height 65 in Weight 77.1 kg Weight 169.62 lb BMI 28.32 What to do next Scheduled Follow-Up Appointments Sunday 9:15 AM EDT With: Jess GUILLERMO, Gene Goodman Where: [facility] 2023 10:15 AM EDT With: Nate GUILLERMO, Rashaad Gastelum Where: [facility] Medicine [facility] Family Medicine Office/Clini c Noteon 06-28-2023 Family Medicine Office/Clinic Note HPI Staff Alessandra is an 88 year old female presenting for 2 week follow up htn, anxiety Patient is here for follow up on hypertension. How often are you checking your blood pressure? once a week What are your average readings? says it's a bit high last reading 160/80 Yearly BMP: _ Follow up for Mental Status: Medication adherence- No, isnt taking medication as prescribed Medication refill needed: _ Suicidal thoughts-Not at this time Most recent CHEIKH: 7 Most recent PHQ: 1 questions/concerns: not taking the hydroxyzine, made her head feel funny doesn't tolerate meds well, is there another option to try History of Present Illness - Here for follow up - Stopped taking her increase BB as she felt it was causing issues. - She was worried about Bps in the 130/70's - Explained that was normal. -Discussed hydration. - Pt is also having issues with sleep. - Anxiety is stable, and patient did not like hydroxyzine. Review of Systems PHQ Score Initial Depression Screen Score: 1 SCORE Physical Exam Vitals & Measurements T: 37.0 ?C(Temporal Artery) HR: 66(Peripheral) RR: 16 BP: 152/70 SpO2: 96% HT: 65 in HT: 165 cm WT: 77.1 kg WT: 169.62 lb BMI: 28.32 General: alert, no acute distress ENMT: oral mucosa moist, Cardiovascular: regular rate and rhythm, normal peripheral perfusion Respiratory: Lungs CTA, respirations non labored Extremities: no deformity, no trauma Neurological: oriented x 4, LOC appropriate for age, CN II-XII intact, motor strength equal & normal bilaterally, speech normal Abdomen: Soft, Nontender, Non-distended, + BS Assessment/Plan 1. Anxiety (F41.9: Anxiety disorder, unspecified) - Will try PRN xanax - Discussed other meds - Feel this maybe the lightest for her. Ordered: Body Mass Index (BMI) documented 3008F Current tobacco non-user 1036F Depression Screening Negative 3352F Most recent diastolic blood pressure <80 mm Hg 3078F Most recent systolic blood pressure >= 140 mm Hg 3077F Patient screen for fall risk: no falls in last year or 1 fall with no injury in last year 1101F 2. Hypertension (I10: Essential (primary) hypertension) - Not at goal. - Concerned for hypotension when relaxed - Seeing cardio tomorrow Ordered: Body Mass Index (BMI) documented 3008F Current tobacco non-user 1036F Depression Screening Negative 3352F Most recent diastolic blood pressure <80 mm Hg 3078F Most recent systolic blood pressure >= 140 mm Hg 3077F Patient screen for fall risk: no falls in last year or 1 fall with no injury in last year 1101F 3. BMI 28.0-28.9,adult (Z68.28: Body mass index [BMI] 28.0-28.9, adult) - BMI education given Ordered: Body Mass Index (BMI) documented 3008F Current tobacco non-user 1036F Depression Screening Negative 3352F Most recent diastolic blood pressure <80 mm Hg 3078F Most recent systolic blood pressure >= 140 mm Hg 3077F Patient screen for fall risk: no falls in last year or 1 fall with no injury in last year 1101F 4. Overweight (E66.3: Overweight) - Diet and exercise advised Ordered: Body Mass Index (BMI) documented 3008F Current tobacco non-user 1036F Depression Screening Negative 3352F Most recent diastolic blood pressure <80 mm Hg 3078F Most recent systolic blood pressure >= 140 mm Hg 3077F Patient screen for fall risk: no falls in last year or 1 fall with no injury in last year 1101F 5. Nonsmoker (Z78.9: Other specified health status) - Please continue to not smoke Ordered: Body Mass Index (BMI) documented 3008F Current tobacco non-user 1036F Depression Screening Negative 3352F Most recent diastolic blood pressure <80 mm Hg 3078F Most recent systolic blood pressure >= 140 mm Hg 3077F Patient screen for fall risk: no falls in last year or 1 fall with no injury in last year 1101F 6. Insomnia (G47.00: Insomnia, unspecified) - Will try Trazadone - Follow up in 1 month Orders: alprazolam, 0.25 mg = 1 tab(s), Oral, q8hr, PRN Anxiety, # 8 tab(s), Refills(s) 0, Pharmacy: [facility]/pharmacy #[id number], 165, cm, 06/28/23 11:45:00 EDT, Height/Length Dosing, 77.1, kg, 06/28/23 11:45:00 EDT, Weight Dosing carvedilol, 12.5 mg = 1 tab(s), Oral, BID, # 60 tab(s), Refills(s) 0, Pharmacy: [facility]/pharmacy #[id number], 165, cm, 06/28/23 11:45:00 EDT, Height/Length Dosing, 77.1, kg, 06/28/23 11:45:00 EDT, Weight Dosing trazodone, 25 mg = 0.5 tab(s), Oral, Once a day (at bedtime), # 15 tab(s), Refills(s) 0, Pharmacy: [facility]/pharmacy #[id number], 165, cm, 06/28/23 11:45:00 EDT, Height/Length Dosing, 77.1, kg, 06/28/23 11:45:00 EDT, Weight Dosing Total time spent preparing for the encounter, evaluating and assessing the patient, documenting the visit, and ordering appropriate follow-up work was 40 minutes. Follow-up No qualifying data available Patient Education BMI for Adults Problem List/Past Medical History Ongoing Anxiety BMI 26.0-26.9,adult Chronic cystitis Chronic GERD History of uterine cancer Hypertension Insomnia (more content not included)... Normal [facility] Comment on above: Result Comment: Elec tronically Signed By: Nate GUILLERMO, Rashaad Gastelum\.br\Date and Time Signed: 06/28/23 12:16 EDT Patient Educationon 06-28-19 Patient Education Nutrition BMI for Adults What is BMI? Body mass index (BMI) is a number that is calculated from a person's weight and height. BMI can help estimate how much of a person's weight is composed of fat. BMI does not measure body fat directly. Rather, it is an alternative to procedures that directly measure body fat, which can be difficult and expensive. BMI can help identify people who may be at higher risk for certain medical problems. What are BMI measurements used for? BMI is used as a screening tool to identify possible weight problems. It helps determine whether a person is obese, overweight, a healthy weight, or underweight. BMI is useful for: ? Identifying a weight problem that may be related to a medical condition or may increase the risk for medical problems. ? Promoting changes, such as changes in diet and exercise, to help reach a healthy weight. BMI screening can be repeated to see if these changes are working. How is BMI calculated? BMI involves measuring your weight in relation to your height. Both height and weight are measured, and the BMI is calculated from those numbers. This can be done either in [place] or metric measurements. Note that charts and online BMI calculators are available to help you find your BMI quickly and easily without having to do these calculations yourself. To calculate your BMI in [place] measurements: 1. Measure your weight in pounds (lb). 2. Multiply the number of pounds by 703. ? For example, for a person who weighs 180 lb, multiply that number by 703, which equals 126,540. 3. Measure your height in inches. Then multiply that number by itself to get a measurement called inches squared. ? For example, for a person who is 70 inches tall, the inches squared measurement is 70 inches x 70 inches, which equals 4,900 inches squared. 4. Divide the total from step 2 (number of lb x 703) by the total from step 3 (inches squared): 126,540 ? 4,900 = 25.8. This is your BMI. To calculate your BMI in metric measurements: 1. Measure your weight in kilograms (kg). 2. Measure your height in meters (m). Then multiply that number by itself to get a measurement called meters squared. ? For example, for a person who is 1.75 m tall, the meters squared measurement is 1.75 m x 1.75 m, which is equal to 3.1 meters squared. 3. Divide the number of kilograms (your weight) by the meters squared number. In this example: 70 ? 3.1 = 22.6. This is your BMI. What do the results mean? BMI charts are used to identify whether you are underweight, normal weight, overweight, or obese. The following guidelines will be used: ? Underweight: BMI less than 18.5. ? Normal weight: BMI between 18.5 and 24.9. ? Overweight: BMI between 25 and 29.9. ? Obese: BMI of 30 or above. Keep these notes in mind: ? Weight includes both fat and muscle, so someone with a muscular build, such as an athlete, may have a BMI that is higher than 24.9. In cases like these, BMI is not an accurate measure of body fat. ? To determine if excess body fat is the cause of a BMI of 25 or higher, further assessments may need to be done by a health care provider. ? BMI is usually interpreted in the same way for men and women. Where to find more information For more information about BMI, including tools to quickly calculate your BMI, go to these websites: ? Centers for Disease Control and Prevention: www.cdc.gov ? [place] [employer]: www.heart.org ? National Heart, Lung, and Blood [place]: www.nhlbi.nih.gov Summary ? Body mass index (BMI) is a number that is calculated from a person's weight and height. ? BMI may help estimate how much of a person's weight is composed of fat. BMI can help identify those who may be at higher risk for certain medical problems. ? BMI can be measured using [place] measurements or metric measurements. ? BMI charts are used to identify whether you are underweight, normal weight, overweight, or obese. This information is not intended to replace advice given to you by your health care provider. Make sure you discuss any questions you have with your health care provider. Document Revised: 11/12/2019 Document Reviewed: 09/19/2019 [employer] Patient Education ? 2022 [employer] [facility] Transfer Inon 06-22-2023 Transfer In [id number] 0TIFF [facility] Transfer In [id number] 0TIFF [facility] Ambulatory Visit Summaryon 0 06-13-2023 Ambulatory Visit Summary ALESSANDRA SALAZAR :1935 Visit Date:06/13/2023 Ambulatory Visit Instructions Your Diagnosis Hypertension Chronic GERD Syncope Anxiety BMI 26.0-26.9,adult BMI 27.0-27.9,adult Over weight Nonsmoker Your Care Team Attending Physician - Rashaad Sullivan MD. Primary Care Physician - Rashaad Sullivan MD. This Is Your Medications List Contact prescribing physician if questions or concerns carvedilol (carvedilol 25 mg Tab) esomeprazole (Nexium) fexofenadine (fexofenadine 180 mg Tab) hydrOXYzine (hydrOXYzine hydrochloride 10 mg Tab) hydrochlorothiazide (hydrochlorothiazide 25 mg Tab) psyllium (Metamucil 525 mg oral capsule) Procedures Performed UD - Urethral dilatation (12/19/2022), Cystourethroscopy with dilation of urethral stricture (04/04/2022), Dilation of urethra (06/29/2021), UD - Urethral dilatation (10/12/2020), Colonoscopy (05/13/2020), UD - Urethral dilatation (12/30/2019), Urethral dilatation (04/01/2019), Urethral dilatation - female (09/10/2018), Cystoscopy (02/19/2018), Urodynamics (01/16/2018), UD - Urethral dilatation (08/17/2017), Cholecystectomy, Hysterectomy. Discharge Vitals Temperature (Temporal Artery) 36.7 ?C Heart Rate (Peripheral) 62 Respiratory Rate 16 Blood Pressure 156/62 Height 165 cm Height 65 in Weight 76.0 kg Weight 167.2 lb BMI 27.92 What to do next Scheduled Follow-Up Appointments 2023 11:30 AM EDT With: Nate GUILLERMO, Rashaad Gastelum Where: [facility] [place] Normal [facility] Auth for Release of Medical Recordson 06-13-2023 Auth for Release of Medical Records [id number] 0TIFF [facility] Auth for Release of Medical Records [id number] 0TIFF [facility] Family Medicine Office/Clini c Noteon 06-13-2023 Family Medicine Office/Clinic Note HPI Staff Alessandra is an 88 year old female presenting to establish care Saw Dr Sullivan in ER couple years ago for htn Establish Care: History: GERD, HTN Any previous diagnosis: History of seeing any specialist: Dr Angel for years When was your last doctors visit: saw VIV argueta about 10 d ago time for a change Last provider: [facility] Any recent labs: none Health Maintenance UTD: Colonoscopy: due few years ago but hasn't done it Mammogram: none for a while Pelvic/Pap: no longer gets these Acute: passing out occasionally couple weeks ago was out at [employer] getting chang for the KDS and then sunday happened again, been to ER twice for this but haven't come up with anything Wants her ear checked, says not real stable and has some pain in the left ear going on for awhile Current issues/complaints: lost 2 sons and her all within the last 3 years and hasn't handled that well History of Present Illness Pt is here to establish care with me. 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 Pt was admitted for hypertensive emergency. Pt recently had an episode where she passed out. She went to the ER and had work up done. Pt states they found nothing and let her go. She states this has happened twice lately and both times she was sent up. She knows she is anxious, but she is not sure if that is the cause of her symptoms at this time. She has had elevated Bps in the past which were very hard to control. These seem to be related to anxiety. For this we have had tried to treat. Concerned for the patient as she lives alone. Review of Systems PHQ Score Initial Depression Screen Score: 1 SCORE Physical Exam Vitals & Measurements T: 36.7 ?C(Temporal Artery) HR: 62(Peripheral) RR: 16 BP: 156/62 SpO2: 99% HT: 65 in HT: 165 cm WT: 76.0 kg WT: 167.2 lb BMI: 27.92 General: alert, no acute distress ENMT: oral mucosa moist, Cardiovascular: regular rate and rhythm, normal peripheral perfusion Respiratory: Lungs CTA, respirations non labored Extremities: no deformity, no trauma Neurological: oriented x 4, LOC appropriate for age, CN II-XII intact, motor strength equal & normal bilaterally, speech normal Abdomen: Soft, Nontender, Non-distended, + BS Assessment/Plan 1. Hypertension (I10: Essential (primary) hypertension) Elevated again today. Could be anxiety related. With the syncopal epidose, we will refer to cardiology. Requested records from her previous PCP and Hospital Ordered: Body Mass Index (BMI) documented 3008F Current tobacco non-user 1036F Depression Screening Negative 3352F Influenza immunization status assessed 1030F Most recent diastolic blood pressure <80 mm Hg 3078F Most recent systolic blood pressure >= 140 mm Hg 3077F Patient screen for fall risk: no falls in last year or 1 fall with no injury in last year 1101F 2. Chronic GERD (K21.9: Gastro-esophageal reflux disease without esophagitis) Stable Pressure could be 2/2 GERD Discussed taking the meds on a regular basis Ordered: Body Mass Index (BMI) documented 3008F Current tobacco non-user 1036F Depression Screening Negative 3352F Influenza immunization status assessed 1030F Most recent diastolic blood pressure <80 mm Hg 3078F Most recent systolic blood pressure >= 140 mm Hg 3077F Patient screen for fall risk: no falls in last year or 1 fall with no injury in last year 1101F 3. Syncope (R55: Syncope and collapse) - Pt states her work up was normal. - Have requested records. - Do not want to duplicate testing - Close follow up recommended Ordered: Body Mass Index (BMI) documented 3008F Current tobacco non-user 1036F Depression Screening Negative 3352F Influenza immunization status assessed 1030F Most recent diastolic blood pressure <80 mm Hg 3078F Most recent systolic blood pressure >= 140 mm Hg 3077F Patient screen for fall risk: no falls in last year or 1 fall with no injury in last year 1101F 4. Anxiety (F41.9: Anxiety disorder, unspecified) - May not be stable. - Scoring was WNL. - Will continue to monitor. - May need to change meds. Ordered: Body Mass Index (BMI) documented 3008F Current tobacco non-user 1036F Depression Screening Negative 3352F Influenza immunization status assessed 1030F Most recent diastolic blood pressure <80 mm Hg 3078F Most recent systolic blood pressure >= 140 mm Hg 3077F Patient screen for fall risk: no falls in last year or 1 fall with no injury in last year 1101F 5. BMI 26.0-26.9,adult (Z68.26: Body mass index [BMI] 26.0-26.9, adult) - BMI education given Ordered: Body Mass Index (BMI) documented 3008F Current tobacco non-user 1036F Depression Screening Negative 3352F Influenza immunization status assessed 1030F Most recent diastolic blood pressure <80 mm Hg 3078F Most recent systolic blood pressure >= 140 mm Hg 3077F Patient screen for fall risk: no falls in last year or 1 fall with no injury (more content not included)... Normal [facility] Comment on above: Result Comment: Elec tronically Signed By: Nate GUILLERMO, Rashaad Gastelum\.br\Date and Time Signed: 06/13/23 14:57 EDT Patient Educationon 06-13-19 Patient Education Nutrition BMI for Adults What is BMI? Body mass index (BMI) is a number that is calculated from a person's weight and height. BMI can help estimate how much of a person's weight is composed of fat. BMI does not measure body fat directly. Rather, it is an alternative to procedures that directly measure body fat, which can be difficult and expensive. BMI can help identify people who may be at higher risk for certain medical problems. What are BMI measurements used for? BMI is used as a screening tool to identify possible weight problems. It helps determine whether a person is obese, overweight, a healthy weight, or underweight. BMI is useful for: ? Identifying a weight problem that may be related to a medical condition or may increase the risk for medical problems. ? Promoting changes, such as changes in diet and exercise, to help reach a healthy weight. BMI screening can be repeated to see if these changes are working. How is BMI calculated? BMI involves measuring your weight in relation to your height. Both height and weight are measured, and the BMI is calculated from those numbers. This can be done either in [place] or metric measurements. Note that charts and online BMI calculators are available to help you find your BMI quickly and easily without having to do these calculations yourself. To calculate your BMI in [place] measurements: 1. Measure your weight in pounds (lb). 2. Multiply the number of pounds by 703. ? For example, for a person who weighs 180 lb, multiply that number by 703, which equals 126,540. 3. Measure your height in inches. Then multiply that number by itself to get a measurement called inches squared. ? For example, for a person who is 70 inches tall, the inches squared measurement is 70 inches x 70 inches, which equals 4,900 inches squared. 4. Divide the total from step 2 (number of lb x 703) by the total from step 3 (inches squared): 126,540 ? 4,900 = 25.8. This is your BMI. To calculate your BMI in metric measurements: 1. Measure your weight in kilograms (kg). 2. Measure your height in meters (m). Then multiply that number by itself to get a measurement called meters squared. ? For example, for a person who is 1.75 m tall, the meters squared measurement is 1.75 m x 1.75 m, which is equal to 3.1 meters squared. 3. Divide the number of kilograms (your weight) by the meters squared number. In this example: 70 ? 3.1 = 22.6. This is your BMI. What do the results mean? BMI charts are used to identify whether you are underweight, normal weight, overweight, or obese. The following guidelines will be used: ? Underweight: BMI less than 18.5. ? Normal weight: BMI between 18.5 and 24.9. ? Overweight: BMI between 25 and 29.9. ? Obese: BMI of 30 or above. Keep these notes in mind: ? Weight includes both fat and muscle, so someone with a muscular build, such as an athlete, may have a BMI that is higher than 24.9. In cases like these, BMI is not an accurate measure of body fat. ? To determine if excess body fat is the cause of a BMI of 25 or higher, further assessments may need to be done by a health care provider. ? BMI is usually interpreted in the same way for men and women. Where to find more information For more information about BMI, including tools to quickly calculate your BMI, go to these websites: ? Centers for Disease Control and Prevention: www.cdc.gov ? [place] [employer]: www.heart.org ? National Heart, Lung, and Blood [place]: www.nhlbi.nih.gov Summary ? Body mass index (BMI) is a number that is calculated from a person's weight and height. ? BMI may help estimate how much of a person's weight is composed of fat. BMI can help identify those who may be at higher risk for certain medical problems. ? BMI can be measured using [place] measurements or metric measurements. ? BMI charts are used to identify whether you are underweight, normal weight, overweight, or obese. This information is not intended to replace advice given to you by your health care provider. Make sure you discuss any questions you have with your health care provider. Document Revised: 11/12/2019 Document Reviewed: 09/19/2019 [employer] Patient Education ? 2022 [employer] Normal [facility] GLYCOHEMOGLOBIN A1Con Glucose [Mass/Vol] 108 mg/dL [...] [facility] Glucose, UA Negative Negative - 1999(110) ++++ mg/dL [facility] Protein, UA Negative Negative - 1999(20) ++++ mg/dL [facility] Spec Grav, UA 1.020 1 - 1.03 [facility] Urobilinogen, UA 0.2 0.2 - 12 mg/dL [facility] Consent for Procedure/Surger yon 12-20-2022 Consent for Procedure/Surgery [id number]. [id number] Normal [facility] Ambulatory Visit Summaryon 1 Ambulatory Visit Summary ALESSANDRA SALAZAR :1935 Visit Date:12/19/2022 Ambulatory Visit Instructions Your Diagnosis Unspecified urethral stricture, female Chronic cystitis Tests Performed Urnls Dip Stick Auto w/o Microscopy POC 53105 Your Care Team Attending Physician - LONNY GUILLERMO, Alin Salter Primary Care Physician - HOLLAND GUILLERMO, MIKEL Lobato This Is Your Medications [...] UD Where: [facility] [address], [place] [address]- Medications What How Much When Why Instructions [...] Urnls Dip Stick Auto w/o Microscopy POC 11892 (12/19/2022) Bilirubin Urine Dipstick - Negative Blood Urine Dipstick - Negative Glucose Urine Dipstick - Negative Ketones Urine Dipstick - Negative Leukocytes Urine Dipstick - 1+ Small Nitrite Urine Dipstick - Negative Protein Urine Dipstick - Negative Specific Cost Urine Dipstick - 1.010 Urine Appearance Urine [...] urine. ? (more content not included)... Normal [facility] Patient Educationon 12-20-19 Patient Education Urology Urethral Stricture Urethral stricture [...] Follow these instructions at home: ? Take qemw-[id number]-qgzsrew and prescription medicines only as told by [...] provider. Document Revised: 12/27/2021 Document Reviewed: 12/27/2021 [employer] Patient Education ? 2022 [employer]. [facility] Urology Office/Clinic Noteon 12-19-2022 Urology Office/Clinic Note [...] Tight The Urethra was dilated to: 20-30 Angolan with sounds. Specimens Removed: None Postoperative Information [...] Follow-up With When Contact Information LONNY GUILLERMO, NANCY Triana In 6 months [facility] [address], [place] [address]- Additional Instructions: w/IO UD Patient Education Urethral Stricture Tejal, Lolly Carlisle , personally scribed for Dr. [...] vax 20 (more content not included)... Normal [facility] Comment on above: Result Comment: Elec tronically Signed By: Alin ANGEL MD.br\Date and Time Signed: 12/19/22 12:59 EDT\.br\Electronically Co-Signed By: Lolly Carlisle.br\Date and Time Co-Signed: 12/19/22 12:58 EDT XR [...] by: MELLISSA FRIEDMAN Date: 2022-02-14 10:37 Normal [facility] XR FOOT GOPAL MIN 3 VIEWSon XR [...] by: TEZ DAWSON Date: 2021-09-14 19:24 Normal [facility] Complete Blood Counton 06-29 Erythrocyte distribution width (RBC) [Ratio] 12.7 % Normal 11.0-15.0 [facility] [employer] Developer Comment on above: Performed By: #### M G, TSH, CBC, CMP #### [facility] [address], [place] [id number] Hematocrit (Bld) [Volume fraction] 36.4 % Normal 35.0-47.0 [facility] Specialist Comment on above: Performed By: #### M G, TSH, CBC, CMP #### [facility] [address], [place] [id number] Hemoglobin (Bld) [Mass/Vol] 12.2 g/dL Normal 11.6-15.5 [facility] Comment on above: Performed By: #### M G, TSH, CBC, CMP #### [facility] [address], [place] [id number] MCH (RBC) [Entitic mass] 31.4 pg Normal 27.0-33.0 [facility] Comment on above: Performed By: #### M G, TSH, CBC, CMP #### [facility] [address], [place] [id number] MCHC (RBC) [Mass/Vol] 33.5 g/dL Normal 32.0-36.0 [facility] Comment on above: Performed By: #### M G, TSH, CBC, CMP #### [facility] [address], [place] [id number] MCV (RBC) [Entitic vol] 94 fL Normal 80-100 [facility] Specialist Comment on above: Performed By: #### M G, TSH, CBC, CMP #### [facility] [address], [place] [id number] Platelet mean volume (Bld) [Entitic vol] 10.30 fL Normal 7.50-12.50 [facility] Specialist Comment on above: Performed By: #### M G, TSH, CBC, CMP #### [facility] [address], [place] [id number] Platelets (Bld) [#/Vol] 297 10*3/uL Normal 140-400 [facility] Specialist Comment on above: Performed By: #### M G, TSH, CBC, CMP #### [facility] [address], [place] [id number] RBC (Bld) [#/Vol] 3.89 10*6/uL Low 3.90-5.20 [facility] Specialist Comment on above: Performed By: #### M G, TSH, CBC, CMP #### [facility] [address], [place] [id number] RDW-SD 43.8 fL Normal 37.0-50.0 [facility] Specialist Comment on above: Performed By: #### M G, TSH, CBC, CMP #### [facility] [address], [place] [id number] WBC (Bld) [#/Vol] 6.9 10*3/uL Normal 3.8-11.0 [facility] [employer] Developer Comment on above: Performed By: #### M G, TSH, CBC, CMP #### [facility] [address], [place] [id number] Comprehensive Metabolic Pane bry 06-29-2021 Albumin [Mass/Vol] 4.4 g/dL Normal 3.6-5.1 [facility] [employer] Comment on above: Performed By: #### M G, TSH, CBC, CMP #### [facility] [address], [place] [id number] Albumin/Globulin [Mass ratio] 2.1 {ratio} Normal 1.0-2.5 [facility] Specialist Comment on above: Performed By: #### M G, TSH, CBC, CMP #### [facility] [address], [place] [id number] ALP [Catalytic activity/Vol] 95 U/L Normal 35-119 [facility] Special[facility] Comment on above: Performed By: #### M G, TSH, CBC, CMP #### [facility] [address], [place] [id number] ALT [Catalytic activity/Vol] 9 U/L Normal 6-33 [facility] [employer] Developer Comment on above: Result Comment: 02/02 Female reference range changed. Performed By: #### M G, TSH, CBC, CMP #### [facility] [address], [place] [id number] Anion gap [Moles/Vol] 15 mmol/L Normal 12-20 [facility] Comment on above: Result Comment: Efflisa ctive 03/10/2019 reference range changed. Performed By: #### M G, TSH, CBC, CMP #### [facility] [address], [place] [id number] AST [Catalytic activity/Vol] 13 U/L Normal 9-34 [facility] Comment on above: Performed By: #### M G, TSH, CBC, CMP #### [facility] [address], [place] [id number] Bilirubin [Mass/Vol] 0.40 mg/dL Normal 0.30-1.20 [facility] Comment on above: Performed By: #### M G, TSH, CBC, CMP #### [facility] [address], [place] [id number] BUN/CREA 21 Ratio Normal 6-22 [facility] Comment on above: Performed By: #### M G, TSH, CBC, CMP #### [facility] [address], [place] [id number] Calcium [Mass/Vol] 9.9 mg/dL Normal 8.6-10.2 [facility] Comment on above: Performed By: #### M G, TSH, CBC, CMP #### [facility] [address], [place] [id number] Chloride [Moles/Vol] 105 mmol/L Normal 98-107 [facility] Comment on above: Performed By: #### M G, TSH, CBC, CMP #### [facility] [address], [place] [id number] CO2 [Moles/Vol] 25 mmol/L Normal 20-31 [facility] Comment on above: Performed By: #### M G, TSH, CBC, CMP #### [facility] [address], [place] [id number] Creatinine [Mass/Vol] 0.6 mg/dL Normal 0.6-1.4 [facility] Comment on above: Performed By: #### M G, TSH, CBC, CMP #### [facility] [address], [place] [id number] eGFRAA 113 mL/min/1.73m2 Normal >60 [facility] Specialist Comment on above: Performed By: #### M G, TSH, CBC, CMP #### [facility] [address], [place] [id number] eGFRNAA 93 mL/min/1.73m2 Normal >60 [facility] [employer] Developer Comment on above: Performed By: #### M G, TSH, CBC, CMP #### [facility] [address], [place] [id number] Globulin (S) [Mass/Vol] 2.1 g/dL Normal 1.9-3.7 [facility] [employer] Developer Comment on above: Performed By: #### M G, TSH, CBC, CMP #### [facility] [address], [place] [id number] Glucose [Mass/Vol] 92 mg/dL Normal 65-99 [facility] [employer] Developer Comment on above: Result Comment: For FASTING Glucose --- ADA reference ranges: Normal 65-99 mg/dl Prediabetes 100-125 Diabetes >/= 126 Performed By: #### M G, TSH, CBC, CMP #### [facility] [address], [place] [id number] Potassium [Moles/Vol] 4.5 mmol/L Normal 3.5-5.5 [facility] [employer] Developer Comment on above: Performed By: #### M G, TSH, CBC, CMP #### [facility] [address], [place] [id number] Protein [Mass/Vol] 6.5 g/dL Normal 6.1-8.1 [facility]endor[facility] At[employer] Java Developer Comment on above: Performed By: #### M G, TSH, CBC, CMP #### [facility] [address], [place] [id number] Sodium [Moles/Vol] 141 mmol/L Normal 135-146 Katy hawley [place] [employer] Developer Comment on above: Performed By: #### M G, TSH, CBC, CMP #### [facility] [address], [place] [id number] Urea nitrogen [Mass/Vol] 13 mg/dL Normal 7-25 [facility] [employer] Developer Comment on above: Performed By: #### M G, TSH, CBC, CMP #### [facility] [address], [place] [id number] Magnesiumon 06-29-2021 Magnesium [Mass/Vol] 2.0 mg/dL Normal 1.5-2.3 [facility] Comment on above: Performed By: #### M G, TSH, CBC, CMP #### [facility] [address], [place] [id number] TSHon 06-29-2021 TSH 1.750 uIU/mL Normal 0.400-4.500 [facility] At[employer] Developer Comment on above: Performed By: #### M G, TSH, CBC, CMP #### [facility] [address], [place] [id number] Vital Signs Date Time Vital Sign Value Performing Clinician Facility 06-29-2023 09:17-0400 Blood Pressure Location Gene Hoontonus [facility] 06-29-2023 09:17-0400 Diastolic blood pressure 78 mm[Hg] Gene Kirnus [facility] 06-29-2023 09:17-0400 Heart rate 80 /min Gene Kirnus [facility] 06-29-2023 09:17-0400 Respiratory rate 18 /min Gene Kirnus [facility] 06-29-2023 09:17-0400 SaO2% (BldA) [Mass fraction] 95 % Gene Kirnus [facility] 06-29-2023 09:17-0400 Systolic blood pressure 146 mm[Hg] Gene Kirnus [facility] 04-11-2023 10:31-0500 Body height 160 cm Mikel Lino MD [...] 160 mm[Hg] Mikel Lino MD Work Phone: [facility] 04-04-2022 13:40-0500 Blood Pressure Location Alin ANGEL [facility] 04-04-2022 13:40-0500 Diastolic blood pressure 86 mm[Hg] Alin ANGEL [facility] 04-04-2022 13:40-0500 Heart rate 86 /min Alin ANGEL [facility] 04-04-2022 13:40-0500 Systolic blood pressure 155 mm[Hg] Alin ANGEL [facility] 06-29-2021 15:57-0400 Blood Pressure Location Alin ANGEL [facility] 06-29-2021 15:57-0400 Diastolic blood pressure 80 mm[Hg] Alin ANGEL [facility] 06-29-2021 15:57-0400 Heart rate 78 /min Alin ANGEL [facility] 06-29-2021 15:57-0400 Respiratory rate 16 /min Alin ANGEL [facility] 06-29-2021 15:57-0400 Systolic blood pressure 139 mm[Hg] Alin ANGEL [facility] Encounters Encounter Date Encounter Type Care Provider Facility Start: 10-25-2023 ambulatory Rashaad Sullivan Facility :[facility] [place] Start: 09-11-2023 ambulatory Alin Hernandezi ty:LEIA Ohara Start: 07-26-2023 End: 07-27-2023 ambulatory Rashaad Sullivan Facility:[facility] [place] Start: 07-19-2023 End: 07-19-2023 ambulatory RONALD A PETITTI Not Available Start: 07-13-2023 End: 07-14-2023 ambulatory Gene Cedenous [place] Start: 07-13-2023 End: 07-13-2023 Patient encounter procedure Gene D Crownus [facility] Start: 06-29-2023 End: 06-30-2023 ambulatory Gene D Crownus Facility[place] Start: 06-29-2023 End: 06-29-2023 Patient encounter procedure Gene D Kirnus [facility] Start: 06-28-2023 End: 06-29-2023 ambulatory Rashaad Sullivan Facility:[facility] [place] Start: 06-21-2023 End: 06-21-2023 ambulatory RONALD A PETITTI Not Available Start: 06-13-2023 End: 06-14-2023 ambulatory Rashaad Nirav Nate Facility:[facility] Start: 06-11-2023 ambulatory Rashaad Sullivan Facility:[facility] [place] Start: 05-31-2023 End: 05-31-2023 ambulatory SIMI FERNÁNDEZ Not Available Start: 05-08-2023 End: 05-08-2023 ambulatory RONALD A PETITTI Not Available Start: 04-11-2023 Bamboo flowsheet Mikel cruz MD Work Phone: [facility] Start: 04-11-2023 Bamboo flowsheet Mikel cruz MD Work Phone: [facility] Start: 04-11-2023 Clinisync Result Encounter Generic External Data Provider [facility] Unsolicited Start: 04-11-2023 End: 04-11-2023 ambulatory MIKEL LINO Not Available Start: 04-11-2023 End: 04-11-2023 Office outpatient visit 25 minutes Mikel Lino MD Work Phone: [facility] Comment on above: Acute cystitis with hematuria (Primary Dx); Reactive depression (CMS/HCC); Benign essential hypertension (CMS/HCC) Start: 04-09-2023 Bamboo flowsmendez michele MD Work Phone: [facility] Start: 04-09-2023 Johno flowsmendez michele MD Work Phone: [facility] Start: 04-09-2023 End: 04-09-2023 ambulatory RONALD A PETITTI Not Available Start: 03-12-2023 End: 03-12-2023 ambulatory RONALD A PETITTI Not Available Start: 03-08-2023 End: 03-08-2023 ambulatory MIKEL LINO Not Available Start: 02-05-2023 End: 02-05-2023 ambulatory MIKEL LINO Not Available Start: 01-22-2023 End: 01-22-2023 ambulatory MIKEL LINO Not Available Start: 12-19-2022 End: 12-20-2022 ambulatory Alin ANGEL Facility: [facility] Start: 04-04-2022 End: 04-04-2022 Patient encounter procedure Alin ANGEL [facility] Start: 02-14-2022 End: 02-15-[address] MIKEL LINO Facility:[facility] Start: 09-23-2021 End: 10-22-[address] MIKEL LINO Facility:[facility] Start: 09-14-2021 End: 09-15-[address] TEZ DAWSON Facility:[facility] Start: 06-29-2021 End: 06-29-2021 Patient encounter procedure Alin ANGEL [facility] Start: 04-04-2021 End: 04-11-[address] MIKEL LINO Facility:[facility] Start: 03-22-2021 End: 03-23-[address] MIKEL LINO Facility:[facility] Procedures Date Procedure Procedure Detail Performing Clinician Start: 04-11-2023 Urnls dip stick/tabl et rgnt non-auto w/o micrscp Mikel Lino MD Work Phone: Start: 04-11-2023 [facility] GLYCOHEMOGLOBIN A1C Generic External Data Provider Start: 12-19-2022 Dilation of urethra Price Mariarupert Start: 04-04-2022 Cystourethroscopy wi dilation of urethral stricture Alin LONNY Start: 06-29-2021 Dilation of urethra Ivelisse skelton ANGEL Start: 10-12-2020 Dilation of urethra Ivelisse skelton ANGEL Start: 05-13-2020 Colonoscopy Alin ALBERT Start: 12-30-2019 Dilation of urethra Ivelisse costa LONNY Start: 04-01-2019 Dilation of urethra Ivelisse skelton LONNY Start: 09-10-2018 Urethral dilatation - female Alin ANGEL Start: 02-19-2018 Cystoscopy Alin TAYLOR SHAMARNoemy Comment on above: with Urethral dilati on* 02/04/13, 02/12/2018 Start: 01-16-2018 Urodynamic studies Ryan jaunferdinand ANGEL Comment on above: 01/01/2013, 01/17/20 18 Start: 08-17-2017 Dilation of urethra Ivelisse skelton ANGEL Comment on above: 08/26/2013, 02/18/20 14, 08/04/2014, 02/02/2015, 08/10/2015, 03/08/2016, 08/08/2016, 02/13/2017, 08/07/2017 Cholecystectomy Alin MCGRATH Hysterectomy Alin ANGEL Plan of Treatment Date Care Activity Detail Author Start: 03-08-2024 Medicare Annual Well ness (AWV) Medicare Annual Wellness (AWV) [facility] Start: 06-15-2023 End: 06-15-2023 Patient encounter procedure 06/15/2023 9:30 AM EDT Office Visit [facility] [address] [facility] [address] [place] [address] Mikel Lino MD [address] [place] [address] [facility] Start: 05-08-2023 End: 05-08-2023 Patient encounter procedure 05/08/2023 10:25 AM EST Office Visit [facility] [address] [place] [phone] Ronald Montez MD [address] [place] [address] [facility] Start: 04-11-2023 End: 04-11-2023 Patient encounter procedure [facility] Comment on above: Arrived Start: 04-09-2023 End: 04-09-2023 Patient encounter procedure 04/09/2023 10:45 AM EST Office Visit [facility] [address] [place] [address] Ronald Montez MD [address] [place] [address] Arrived [facility] Comment on above: Arrived Start: 11-03-2022 Influenza vaccination Influenza Vacc ine (#1) [facility] Start: 04-02-2020 Pneumococcal Vaccine : 65+ Years (2 - PCV) Pneumococcal Vaccine: 65+ Years (2 - PCV) [facility] Immunizations Immunization Date Immunization Notes Care Provider Fa cility 04-06-2022 zoster vaccine recombinant Ronald Montez MD Work Phone: [facility] 12-28-2021 influenza virus vacc ine, unspecified formulation Alin ANGEL [facility] 12-28-2021 Influenza, High-dose Seasonal, Quadrivalent, Preservative Free Ronald Montez MD Work Phone: [facility] 02-09-2021 influenza virus vacc ine, unspecified formulation Alin ANGEL [facility] 02-09-2021 influenza, high dose seasonal, preservative-free Ronald Montez MD Work Phone: [facility] 01-26-2021 influenza virus vacc ine, unspecified formulation Alin ANGEL [facility] 01-26-2021 influenza, high dose seasonal, preservative-free Ronald Montez MD Work Phone: [facility] 12-07-2020 SARS-CoV-2 (COVID-19 ) mRNA BNT-162b2 vax Alin ANGEL [facility] Comment on above: Result Comment: 2022: [id number] 06-29-2020 diphtheria, tetanus toxoids and pertussis vaccine Ronald Montez MD Work Phone: [facility] 04-21-2020 SARS-CoV-2 (COVID-19 ) mRNA BNT-162b2 vax Al[place] ANGEL [facility] 03-29-2020 SARS-CoV-2 (COVID-19 ) mRNA BNT-162b2 vax [place] ANGEL [facility] 03-05-2020 SARS-CoV-2 (COVID-19 ) mRNA BNT-162b2 vax Alin ANGEL [facility] Comment on above: Result Comment: has had 3 shots to date 01-12-2020 influenza virus vacc ine, unspecified formulation Alin ANGEL [facility] 01-12-2020 Seasonal trivalent influenza vaccine, adjuvanted, preservative free Ronald Montez MD Work Phone: [facility] 04-02-2019 pneumococcal polysaccharide vaccine, 23 valent Alin ANGEL [facility] 02-05-2019 influenza virus vacc ine, unspecified formulation Alin ANGEL [facility] 02-05-2019 influenza, high dose seasonal, preservative-free Ronald Montez MD Work Phone: [facility] 01-03-2019 influenza virus vacc ine, live, attenuated, for intranasal use Ailn ANGEL [facility] 01-09-2018 influenza virus vacc ine, unspecified formulation Alin ANGEL [facility] 01-09-2018 Influenza, High-dose Seasonal, Quadrivalent, Preservative Free Ronald Montez MD Work Phone: [facility] 01-03-2017 influenza virus vacc ine, unspecified formulation Alin ANGEL [facility] 01-03-2017 influenza, high dose seasonal, preservative-free Ronald Montez MD Work Phone: [facility] 01-11-2016 influenza virus vacc ine, unspecified formulation Alin ANGEL [facility] 01-11-2016 influenza, high dose seasonal, preservative-free Ronald Montez MD Work Phone: [facility] 11-26-2008 seasonal influenza, intradermal, preservative free Ronald Montez MD Work Phone: [facility] Payers Date Payer Category Payer Unknown [id number] 2022 [place] [facility] [id number] 20[place]-Present [address] [place] [address] [id number] 2022 Unknown [id number] 2002 Medicare MEDICARE MEDICAR E PART B [id number] 2002-Present [address] [address] [place] [address] Medicare [id number] 1959 Medicare [id number] 1959 Unknown [id number] 1937 Unknown [id number] 2.16.840.1.941167.3.579.2.593 1937 Unknown [id number] 2.16.840.1.616042.3.579.2.593 1937 Unknown [id number] 2.16.840.1.442537.3.579.2.593 1937 Unknown [id number] 2.16.840.1.448311.3.579.2.593 1937 Unknown [id number] 2.16.840.1.172154.3.579.2.593 1937 Unknown [id number] 2.16.840.1.252575.3.579.2.125 9 1937 Unknown [id number] 2.16.840.1.234156.3.579.2.125 9 1937 Unknown [id number] 2.16.840.1.989408.3.579.2.125 9 1937 Unknown [id number] 2.16.840.1.210887.3.579.2.125 9 1937 Unknown [id number] 2.16.840.1.548111.3.579.2.125 9 1937 Unknown [id number] 2.16.840.1.757978.3.579.2.125 9 1937 Unknown [id number] 2.16.840.1.214497.3.579.2.125 9 1937 Unknown [id number] 2.16.840.1.010922.3.579.2.125 9 1937 Unknown [id number] 2.16.840.1.023074.3.579.2.125 9 1937 Unknown [id number] 2.16.840.1.770845.3.579.2.125 9 1937 Unknown [id number] 2.16.840.1.068608.3.579.2.727 1937 Unknown [id number] 2.16.840.1.634287.3.579.2.727 1937 Unknown [id number] 2.16.840.1.423971.3.579.2.727 1937 Unknown [id number] 2.16.840.1.207317.3.579.2.727 1937 Unknown [id number] 2.16.840.1.578266.3.579.2.727 1937 Unknown [id number] 2.16.840.1.948138.3.579.2.727 1937 Unknown [id number] 2.16.840.1.137993.3.579.2.727 1937 Unknown [id number] 2.16.840.1.120036.3.579.2.727 Social History Date Type Detail Facility Start: 10-12-2020 End: 06-29-2023 Tobacco smoking status Never smoked tobacco (finding) [facility] [employer] Tobacco smoking status Never [facility] [employer] Start: 03-08-2023 End: 03-12-2023 Sex Assigned At Female [facility] [employer] Start: 08-23-2022 Tobacco use and exposure Smokeless tobacco non-user [facility] Start: 03-12-2023 End: 04-11-2023 Alcohol intake Lifetime non-drinker (finding) [facility] Start: 03-08-2023 End: 03-12-2023 History of Social function [facility] Start: 1935 Sex Assigned At Not on file [facility] Functional Status Date Assessment Result Facility 06-29-2023 Functional Status N/A [facility] 04-04-2022 Functional Status N/A [facility] Clinical Notes 03-22-2021 to 07-14-2023 Mikel Lino MD - 04/11/2023 10:45 AM ESTRadiology Note Date & Type Note Facility 07-14-2023 Note Echocardiology Procedure Exam Date/Time Accession # Ordering Echo Transthoracic 07/13/2023 11:44 EDT [id number] Gene Mercado MD Complete CPT code 71260 [id number] Reason for Exam (Echo Transthoracic Complete) R01.1;Cardiac murmur (heart) Report Version: 1 Study ID: [id number] [facility] [address] [place] [address] Adult Echocardiogram Report Name: ALESSANDRA SALAZAR Study Date: 07/13/2023, 10: 13 AM Patient Location: [facility] : 1935 (MM/DD/YYYY) Gender: Female Age: 88 Years Height: 165.1 cm BP: 141 / 71 mmHg Weight: 76.658 kg HR: 74 bpm BSA: 1.84 m? Ordering Physician: Gene Mercado Referring Physician: Gene Mercado Performed By: Fidelina Interiano SRIKANTH Reason For Study: Cardiac murmur (heart) History: HTN, Syncope Interpretation Summary Ejection Fraction = 60-65%. Normal LV and RV. No significant valve disease. Sclerotic aortic valve. Normal estimated PA pressure. Impaired diastolic relaxation. Procedure A complete two-dimensional transthoracic echocardiogram was performed (2D, M-mode, spectral and color flow Doppler). Study quality is good. Left Ventricle The left ventricle is normal in size. There is normal left ventricular wall thickness. Ejection Fraction = 60-65%. The left ventricular wall motion is normal. Grade I diastolic dysfunction, (abnormal relaxation pattern). Echocardiology Report Left Atrium The left atrial size is normal. Right Atrium Right atrial size is normal. Right Ventricle The right ventricular systolic function is normal. The right ventricle is normal size. The right ventricular wall motion is normal. Aortic Valve The aortic valve is trileaflet. No aortic regurgitation. There is aortic sclerosis without stenosis. Mitral Valve The mitral valve is normal in structure and function. There is no mitral regurgitation noted. No mitral valve stenosis. Tricuspid Valve Structurally normal tricuspid valve. No evidence of tricuspid regurgitation. Right ventricular systolic pressure is normal. Pulmonic Valve No evidence of stenosis. There is no pulmonic valve regurgitation. Arteries The aortic root is normal in size. Normal ascending aorta. Pulmonary artery diameter is normal. Venous The inferior vena cava is normal in size, and collapses normally with respiration. Effusion There is no pericardial effusion. Left Ventricle IVSd: 0.99 cm LVIDd: 4.8 cm LVPWd: 0.82 cm LVIDs: 4.1 cm EDV(MOD-sp4): 79.3 ml LVLd ap4: 7.7 cm ESV(MOD-sp4): 27.3 ml LVLs ap4: 6.2 cm EDV(MOD-sp2): 43.9 ml LVLd ap2: 6.6 cm ESV(MOD-sp2): 13.7 ml LVLs ap2: 5.2 cm Right Ventricle TAPSE: 2.03 cm Aortic Valve LVOT diam: 1.92 cm LV V1 max: 102.2 cm/sec LV V1 max P.2 mmHg Ao max P.4 mmHg Ao V2 max: 175.9 cm/sec Tricuspid Valve TR max P.9 mmHg TR max tatiana: 244.3 cm/sec Aorta Ao root diam: 2.15 cm Ao Sinus of Valsalva: 2.45 cm Ao Sinotubular Junction: 1.72 cm asc Aorta Diam: 2.7 cm Atria LA dimension: 4.0 cm Diastolic funtion Echocardiology Report Med Peak E' Tatiana: 7.4 cm/sec Lat Peak E' Tatiana: 6.7 cm/sec MV dec time: 0.24 sec MV E max tatiana: 108.0 cm/sec MV A max tatiana: 137.0 cm/sec Ao max P.4 mmHg Ao root area: 3.6 cm? Ao root diam: 2.15 cm Ao Sinus of Valsalva: 2.45 cm Ao Sinotubular Junction: 1.72 cm Ao V2 max: 175.9 cm/sec AV VR: 0.58 ZULLY(V,D): 1.68 cm? EDV(MOD-sp4): 79.3 ml EDV(Teich): 105.9 ml EF(MOD-sp4): 65.6 % EF(Teich): 30.4 % ESV(MOD-sp4): 27.3 ml ESV(Teich): 73.7 ml FS: 14.3 % IVC Diam: 1.39 cm IVSd: 0.99 cm LA dimension: 4.0 cm LV V1 max: 102.2 cm/sec LV V1 max P.2 mmHg LVIDd: 4.8 cm LVIDs: 4.1 cm LVLd ap4: 7.7 cm LVLs ap4: 6.2 cm LVOT area: 2.9 cm? LVOT diam: 1.92 cm LVPWd: 0.82 cm MV A max tatiana: 137.0 cm/sec MV dec time: 0.24 sec MV E max tatiana: 108.0 cm/sec MV E/A: 0.79 RAP systole: 3.0 mmHg RVDd: 2.46 cm RVIDd/LVIDd: 0.52 RVSP(TR): 26.9 mmHg SV(MOD-sp4): 52.0 ml TAPSE: 2.03 cm TR max P.9 mmHg TR max tatiana: 244.3 cm/sec asc Aorta Diam: 2.7 cm E/E' Lat: 16.0 E/E' Med: 14.6 EDV(MOD-sp2): 43.9 ml EF (MOD-bp): 66.6 % EF(MOD-sp2): 68.8 % ESV(MOD-sp2): 13.7 ml LA Vol Index: 35.5 ml/m? Lat Peak E' Tatiana: 6.7 cm/sec Echocardiology Report LVLd ap2: 6.6 cm LVLs ap2: 5.2 cm Med Peak E' Tatiana: 7.4 cm/sec Electronically signed by: Erickson Renee MD 07/14/2023, 8: 35 AM FINAL REPORT Dictated: 07/13/2023 10:13 am Erickson Renee MD Signed (Electronic Signature): 07/14/2023 8:35 am Signed by: Erickson Renee MD Transcribed by: [facility] Technologist: JOSE [facility] 04-11-2023 History of Presen t illness Narrative Images from the original note were not included. HPI would like checked for UTI Additional comments: Pt would like UA ran to make sure she does not have UTI states she has mild dysuria Last edited by Negrita Kelly LPN on 04/11/2023 10:43 AM. Subjective Patient ID: Alessandra Salazar is a 88 y.o. female who [...] History: Diagnosis Date Arthritis COVID-19 vaccine administered pfizer x2 Eczema Gallbladder disease GERD (gastroesophageal reflux [...] for Routine F/U. documented in this encounter [facility] 04-04-2022 Hospital Discharg e instructions Patient Education [...] reconstructed. Follow these instructions at home: Take hqpr-ygt-ktaogwj and prescription medicines only as told by [...] 03/17/2016 Document Revised: 10/02/2018 Document Reviewed: 10/02/2018 [employer] Patient Education 2020 [employer]IK[employer] Follow Up Care 03/07/2022 13:19:55 With:LONNY GUILLERMO, Alin Salter, URL Address: [facility] [address] , [place] [address]- When: Unknown [facility] 06-29-2021 Hospital Discharg e instructions Patient Education [...] reconstructed. Follow these instructions at home: Take wnqv-lqy-rxvycbh and prescription medicines only as told by [...] 03/17/2016 Document Revised: 10/02/2018 Document Reviewed: 10/02/2018 [employer] Patient Education Universal [employer]. Follow Up Care 05/17/2021 10:11:02 With:LONNY GUILLERMO, Alin Salter, URL Address: [facility] [address], [place] [address]- Business (1) When: Unknown [facility] 03-22-2021 Note PROCEDURE: XR KNEE L T 3V COMPARISON: None. HISTORY: Enthesopathy of lower limb FINDINGS: BONES:No acute fracture or dislocation. Minimal marginal osteophyte formation in the medial compartment SOFT TISSUES:Negative. No visible soft tissue swelling. EFFUSION:Trace suprapatellar joint effusion OTHER: Negative. IMPRESSION: Minimal osteoarthritis medial compartment Electronically authenticated by: TEZ DAWSON Date: 2021-03-22 14:33 [facility] Evaluation + Plan note Future Appointments Appointment Date:08/24/2021 09:45:00 AM Scheduled Provider:Neil RAMAN MD Location[place] App[facility] Type:[facility] Follow Up [facility] Evaluation + Plan note Future Appointments Appointment Date:07/26/2023 10:15:00 AM Scheduled Provider:Rashaad Sullivan MD Location:[facility] Appointment Type: Open Appointment Date:12/28/2023 01:00:00 PM Scheduled Provider:Gene Mercado MD [facility] Type:Cardiology Follow Up (FT) Future Scheduled TestsEcho Transthoracic Complete 06/29/23 [facility] Evaluation + Plan note Future Appointments Appointment Date:07/26/2023 10:15:00 AM Scheduled Provider:Rashaad Sullivan MD Location:[facility] Appointment Type: Open Appointment Date:12/28/2023 01:00:00 PM Scheduled Provider:Gene Mercado MD [facility] Type:Cardiology Follow Up (FT) [facility] Evaluation note Diagnosis Acute cystitis with hematuria- Primary Reactive depression (CMS/HCC) Benign essential hypertension (CMS/HCC) Essential hypertension, benign [facility] N[facility] No data available for this section [facility] Hospital Discharge instructions No data available for this section [facility] No data available for this section [facility] Summary Purpose Family History No Family History Records FoundNo Family History Records Found No data available for this section No data available for this section No Family History Records FoundNo Family History Records Found Advance Directives No Advanced Directives Records FoundNo Advanced Directives Records FoundNo Advanced Directives Records FoundNo Advanced Directives Records Found Additional Source Comments INFORMATION SOURCE (unrecogn ized section and content) DATE CREATED AUTHOR 07/02/2021 [facility] dical Specialist DATE CREATED AUTHOR AUTHOR'S ORGANIZ ATION 02/24/2022 [facility] DATE CREATED AUTHOR AUTHOR'S ORGANIZ ATION 07/22/2023 [facility] dical Specialists EPIC DATE CREATED AUTHOR AUTHOR'S ORGANIZ ATION 07/28/2023 [facility] Patient Care team informatio n (unrecognized section and content) Antenna Design Engineer Relationship Specialty Start Date End Date Mikel Lino MD [address] [place] [address] [address] [place] [address] PCP - General Internal Medicine 07/21/22 Mikel Lino MD [address] [place] [address] [place] [address] PCP - ACO Reach 07/27/22 Simi Fernández, VIV [address] [place] [address] Nurse Practitioner Family Medicine 07/21/22 Antenna Design Engineer Relationship Specialty Start Date End Date Mikel Lino MD [address] [place] [address] PCP - General Internal Medicine 07/21/22 Mikel Lino MD [address] [place] [address] PCP - ACO Reach 07/27/22 Simi Fernández, VIV [address] [place] [address] Nurse Practitioner Family Medicine 07/21/22 Antenna Design Engineer Relationship Specialty Start Date End Date Mikel Lino MD [address] [place] [address] PCP - General Internal Medicine 07/21/22 Mikel Lino MD [address] [place] [address] PCP - ACO Reach 07/27/22 Simi Fernández NP [address] [place] [address] Nurse Practitioner Family Medicine 07/21/22 Antenna Design Engineer Relationship Specialty Start Date End Date Mikel Lino MD [address] [place] [address] PCP - General Internal Medicine 07/21/22 Mikel Lino MD [address] [facility] [address] [place] [address] PCP - ACO Reach 07/27/22 Simi Fernández NP [address] [facility] [address] [place] [address] Nurse Practitioner Family Medicine 07/21/22 Reason for [...] BE BASED ON THE PRIMARY CLINICAL RECORDS. [employer] provides no warranty or guarantee of the accuracy or completeness of information in this document.
== END 2023-08-28 14:13 | disposition home or self-care (01) ==
LOC: EC 14:13
PROVIDERS: PCP Internal Medicine; Visit Provider Podiatrist Foot & Ankle Surgery
DX: M76.821 Posterior tibial tendinitis, right leg (principal); M19.072 Primary osteoarthritis, left ankle and foot
CPT/HCPCS: 73610

== ENCOUNTER 2024-07-24 10:51 | Outpatient (RCR) | payer MEDICARE, OTHER, SELFPAY | END 2024-07-25 13:42 | disposition home or self-care (01) | LOC: ST 10:51 | PROVIDERS: PCP Internal Medicine; Visit Provider Family Medicine | DX: I69.328 Other speech and language deficits following cerebral infarction (principal); I69.392 Facial weakness following cerebral infarction | CPT/HCPCS: 92523 ==

== ENCOUNTER 2024-10-07 20:12 | Emergency (ER) | payer MEDICARE, OTHER, SELFPAY ==
--- OUTSIDE RECORDS SUMMARY | 2023-05-31 07:20 | XMS_ITS ---
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 Name Role Phone Mikel Lino MD Primary Care Provider Unavailab Hillary Patten Unavailable [phone] REASON FOR VISIT inj did not work Encounters Encounter Location Date Provider Diagnosis [facility] (P[facility]) [address] [place] [address] [address] [place] [address] 05/31/2023 Hillary Felipe Plan Of Treatment No Information Progress Notes * YARELIS Alessandra StuartDOB:1935 (89 yo F)Acc No.[id number]:05/31/2023 UNLOCKED PROGRESS NOTE Follow Up Patient: Alessandra RENTERIA Provider: Francesca Feliep PA-C :1935 A ge:88 Y S ex:Female Date:05/31/2023 [id number] Pcp:Mikel Lino MD Subjective: * Chief Complaints: * 1 . Inj did not work. * Medical History: Objective: * Vitals: Assessment: Plan: * Treatment: * * Electronic signature of Victoria Felipe PA-C on 10/07/2024 at 08:33 PM EDT Sign off status: Pending Visit Status: C ANC (Cancelled) * Provider: Francesca Felipe PA-C Date: 0 05/31/2023 Generated for Gem lincoln/Dorita/Bandaritting on: 0 10/07/2024 08:33 PM EDT
--- OUTSIDE RECORDS SUMMARY | 2023-07-27 07:29 | XMS_ITS ---
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 Name Role Phone Mikel Lino MD Primary Care Provider Javi Clemons [phone] REASON FOR VISIT patient question Encounters Encounter Location Date Provider Diagnosis [facility] (PODIATRY) [address] [place] [address] [address] [place] [address] 07/27/2023 Javi Marc Plan Of Treatment No Information Progress Notes * Alessandra SANTOYODOB:1935 (88 yo F)Acc No.[id number]:07/27/2023 Patient: Henry [place] Alessandra Stuart :1935 A ge:88 Y S ex:Female Address:[address] [place] [address] * true * Date: Generated for Printi salazar/Famarieg/eTransmitting on: 0 10/07/2024 08:34 PM EDT
--- OUTSIDE RECORDS SUMMARY | 2023-08-28 09:45 | XMS_ITS ---
Author Organization The [facility] in [place] Address [address] [place] [address] Care Team Providers Care Occupational Rehabilitation Aide Name Role Phone Mikel Lino MD Primary Care Provider Javi Clemons [phone] Allergies No Known Allergies Results Component Value Reference Range Notes XR Ankle 3 Views Bilateral Reviewed date:11/29/2023 11:58:14 AM Interpretation: Performing Lab: Notes/Report: REASON FOR VISIT LEFT ANKLE Medications Medication SIG (Take, Route, Frequency, Duration) Notes Start Date End Date Status Lisinopril 10 MG 1 tablet Orally Once a day Active Clotrimazole-Betamethasone 1-0.05 % 1 application Externally Twice a day for 14 days 12/05/2022 Active Social History Tobacco Use: Social History Observation Description Date Details (start date - stop date) Never Smoker NA - NA Tobacco Use/Smoking Question Answer Notes Patient is a nonsmoker Problems Problem Type SNOMED Code ICD Code Onset Dates Problem Status W/U Status Risk Notes Problem [id number] Posterior tibial tendinitis, left leg (M76.822) Active confirmed Vital Signs Height 65 in 08/28/2023 Temperature 97.9 degrees Fahrenheit 08/28/19 24 Heart Rate 81 /min 08/28/2023 Oximetry 97 % 08/28/2023 Encounters Encounter Location Date Provider Diagnosis [facility] (PODIATRY) [address] [place] [address] [place] [address] 08/28/2023 Javi Marc Primary osteoarthritis, left ankle and foot M19.072 ; Posterior tibial tendinitis, left leg M76.822 and Posterior tibial tendinitis, right leg M76.821 Assessments Encounter Date Diagnosis (ICD Code) Assessment Notes Treatment Notes Treatment Clinical Notes Section Notes 08/28/2023 Primary osteoarthritis , left ankle and foot (ICD-10 - M19.072) After verbal consent the skin over the sinus tarsi was prepared with Betadine followed by alcohol and injection of 1 cc of Celestone was injected into the subtalar joint via a sinus tarsi approach. Patient tolerated the injection well and the injection site was dressed with a Band-Aid. 08/28/2023 Posterior tibial tendinitis, left leg (ICD-10 - M76.822) Patient was seen and evaluated. Patient education was provided and x-rays were reviewed with her. I explained to patient again that she is a chronic issue and merely using corticosteroid injections is only masking her pain and she is not addressing her issue with bracing or physical therapy.She relates that she had no relief with the last steroid injection so I agreed that this would be her last steroid injection especially if she gets no symptom relief. I also strongly encouraged her to follow-up with the prosthetists and prescribed a Jhoan brace for her left foot and ankle.The goal of custom bracing is to prevent impingement thus relieving pain and dysfunction associated with chronic deformity thereby allowing her to perform activities of daily living and recreation. Patient will need custom bracing for the remainder of her life. Patient may follow-up after she obtains a brace no new x-rays are needed 08/28/2023 Posterior tibial tendinitis, right leg (ICD-10 - M76.821) Plan Of Treatment Treatment Notes Assessment Notes Primary osteoarthritis, left ankle and foot After verbal consent the skin over the s inus tarsi was prepared with Betadine followed by alcohol and injection of 1 cc of Celestone was injected into the subtalar joint via a sinus tarsi approach. Patient tolerated the injection well and the injection site was dressed with a Band-Aid. Posterior tibial tendinitis, left leg Patient was seen and evaluated. Patient education was provided and x-rays were reviewed with her. I explained to patient again that she is a chronic issue and merely using corticosteroid injections is only masking her pain and she is not addressing her issue with bracing or physical therapy.She relates that she had no relief with the last steroid injection so I agreed that this would be her last steroid injection especially if she gets no symptom relief. I also strongly encouraged her to follow-up with the prosthetists and prescribed a Jhoan brace for her left foot and ankle.The goal of custom bracing is to prevent impingement thus relieving pain and dysfunction associated with chronic deformity thereby allowing her to perform activities of daily living and recreation. Patient will need custom bracing for the remainder of her life. Patient may follow-up after she obtains a brace no new x-rays are needed Progress Notes * YARELIS Alessandra StuartDOB:1935 (88 yo F)Acc No.[id number]:08/28/2023 Follow Up Patient: Alessandra RENTERIA Provider: George Marc DPM, MS :1935 A ge:88 Y S ex:Female Date:08/28/2023 Address:[address] [place], [place] [id number] Pcp:Mikel Lino MD Check In:01:39 PM ESTCheck O ut:02:48 PM EST Subjective: * Chief Complaints: * L EFT ANKLE * HPI: G eneral: Patient following up after injections to left ankle did not help with her pain. She states she did drop a large water pitcher on her ankle a few weeks ago. States at the time she had black and blue toes but it is better. Does have swelling. Still having the same pain due to her arthritis in both ankles, left is worse than right. * ROS: G eneral/Constitutional: Chills d enies. F ever d enies. W eight gain?denies. W eight loss d enies. S kin: Skin Ulcers d enies. S kin lesion(s) d enies. ? C ardiovascular: Difficulty breathing on exertion d enies. L eg cramps?denies. E mary d enies. C hest pain d enies. R espiratory: Difficulty breathing d enies. D yspnea d enies.?Cough d enies. G astrointestinal: Diarrhea d enies. N ausea d enies. V omiting?denies. M usculoskeletal: Bone/Joint Symptoms d enies. C detention Pain d enies.?Leg cramps d enies. N eurologic: Numbness d enies. T ingling d enies . G ait abnormality d enies. ? H ematology: Anemia D enies. E asy bruising d enies. ? A ll Other Systems: Review of Systems (ROS) S ee HPI for details,All others negative except those mentioned in HPI. * Active Problem List M76.821 Posterior tibial ten dinitis, right leg Modified On:08/08/2022/U Status:confirmed M19.072 Primary osteoarthrit is, left ankle and foot Modified On:05/17/2023/U Status:confirmed M19.071 Primary osteoarthrit is, right ankle and foot Modified On:05/17/2023/U Status:confirmed M20.22 Hallux rigidus, left foot Modified On:12/05/2022/U Status:confirmed M20.21 Hallux rigidus, righ t foot Modified On:12/05/2022/U Status:confirmed R41.82 Altered mental statu s Modified On:02/08/2023/U Status:confirmed M76.822 Posterior tibial ten dinitis, left leg Modified On:08/28/2023/U Status:confirmed * Medical History: * Surgical History: c holecystectomy 2013 * Hospitalization/Major Diagno stic Procedure: S ee above * Family History: N o Family History documented.. * Social History: T obacco Use: T obacco Use/Smoking P atient is a n onsmoker * Medications: T akingClotrimazole-Betamethasone 1-0.05 % Cream 1 application Externally Twice a day Lisinopril 10 MG Tablet 1 tablet Orally Once a day Medication List reviewed and reconciled with the patientTaking Clotrimazole-Betamethasone 1-0.05 % Cream 1 application Externally Twice a day Taking Lisinopril 10 MG Tablet 1 tablet Orally Once a day Medication List reviewed and reconciled with the patient * Allergies: N .K.D.A.no[Allergies Verified] Objective: * Vitals: H t: 65 in, Temp:97.9F, HR:81/min, Pain scale:51-10, Oxygen sat %:97%, Ht-cm: 165.1 cm. * Examination: P odiatry Examination: SKIN: s kin intact, n o sign of infection. MUSCULOSKELETAL: S ignificant hindfoot valgus which is nonreducible and pain on palpation over the sinus tarsi worse on the left. Hypermobility along the first ray.. NEUROLOGICAL: l ight touch sensation intact, n egative tinel's sign. VASCULAR: P edal pulses palpable, C apillary refill is brisk to toe, D igital hair intact. X rays: xrays were obtained and reviewed in my office today. No fracture is noted. There is evidence of subfibular impingement noted on ankle AP and mortise. Advanced talonavicular joint uncoverage. Assessment: * Assessment: 1. P osterior tibial tendinitis, left leg - M76.822 (Primary) 2 . P rimary osteoarthritis, left ankle and foot - M19.072 3 . P osterior tibial tendinitis, right leg - M76.821 Plan: * Treatment: 2. P rimary osteoarthritis, left ankle and foot I maging: XR Ankle 3 Views Bilateral Notes: After verbal consent the skin over the sinus tarsi was prepared with Betadine followed by alcohol and injection of 1 cc of Celestone was injected into the subtalar joint via a sinus tarsi approach. Patient tolerated the injection well and the injection site was dressed with a Band-Aid. ? 3. P osterior tibial tendinitis, right leg I maging: XR Ankle 3 Views Bilateral * Procedure Codes: * * Sign off status: Completed Visit Status: C HK (Check Out) true * Provider: George Marc DPM, MS Date: 0 08/28/2023 Generated for Gem lincoln/Dorita/Bandaritting on: 0 10/07/2024 08:33 PM EDT History and Physical Notes * Examination Category Sub-Category Detail Notes Category Not es Podiatry Examination SKIN: skin intact, no sign of infection Xrays : xrays were obtained and reviewed in my office today. No fracture is noted. There is evidence of subfibular impingement noted on ankle AP and mortise. Advanced talonavicular joint uncoverage. MUSCULOSKELETAL: Significant hindfoot valgus which is nonreducible and pain on palpation over the sinus tarsi worse on the left. Hypermobility along the first ray. NEUROLOGICAL: light touch sensatio n intact, negative tinel's sign VASCULAR: Pedal pulses palpabl e, Capillary refill is brisk to toe, Digital hair intact
--- OUTSIDE RECORDS SUMMARY | 2024-09-24 10:20 | XMS_ITS | Encounter Summary ---
Author Organization [facility] Address [address] [place] [address] Care Team Providers Care Linen Grader Name Role Phone Simi Fernández NP Unavailable [phone] Mikel Lino MD Unavailable [phone] Rashaad Sullivan MD Primary Care Provider [phone] Reason for Visit * Reason Comments Achilles Pain F/U LT foot achilles tendinitis inj x1 dex Ingrown Toenail Rt 3rd digit ingrown Encounter Details Date Type Department Care Team (Latest Contact Info) Description 09/24/2024 10:20 AM EDT Clinical Support [facility] [address] [place] [id number] Juan Aaron, DPM [facility] [address] [place] [address] Onychocryptosis (Primary Dx); Abscess of toe, right; Pain in right toe(s) Social History Tobacco Use Types Packs/Day Years Used Date Smoking Tobacco: Never Smokeless Tobacco: Never Tobacco Cessation:Counseling Given: Yes Alcohol Use Standard Drinks/Week Comments Never 0 (1 standard drink = 0.6 oz pur e alcohol) PHQ-2 Answer Date Recorded Patient Health Questionnaire-2 Score 0 03/08/2023 Comments Unknown Sex and Gender Information Value Date Recorded Sex Assigned at Not on file Legal Sex Female 6:45 PM EDT Gender Identity Not on file Sexual Orientation Not on file documented as of this encounter Last Filed Vital Signs Vital Sign Reading Time Taken Comments Blood Pressure 131/76 09/24/2024 10:40 AM EDT Pulse 81 09/24/2024 10:40 AM EDT Temperature - - Respiratory Rate - - Oxygen Saturation - - Inhaled Oxygen Concentration - - Weight 76.2 kg (168 lb) 09/24/2024 10:40 AM EDT Height 165.1 cm (5' 5 ) 09/24/2024 10:40 AM EDT Body Mass Index 27.96 09/24/2024 10:40 AM EDT documented in this encounter Progress Notes * Juan Aaron DPM [facility] - 09/24/2024 10:20 AM EDT Images from the original note were not included. Patient: Alessandra Salazar : 1935 PCP: Rashaad Sullivan MD SUBJECTIVE This is a 89 y.o. female presents today with a chief complaint of a painful ingrown toenail with associated soft tissue abscess right 3rd digit. The state the pain has been present for several weeks and has progressively worsened. They have attempted trimming the nail back to no avail. They have noticed erythema and drainage coming from the affected border of the nail. They have attempted soakingthe nail and topical antibiotics to no avail. The patient rates the pain a scale from 1-10 as a 8 with 10 being the worst pain of their lives. Allergies: Allergies Allergen Reactions Amoxicillin Other Reaction(s): GI problems Lisinopril Swelling Nitrofurantoin Other Reaction(s): GI upset Other Unknown Tape Past Medical History: Active Ambulatory Problems Diagnosis Date Noted Benign essential hypertension 08/23/2022 Bilateral lower extremity edema 08/23/2022 Bilateral primary osteoarthritis of knee 08/23/2022 Cervical osteoarthritis 08/23/2022 Chronic constipation 08/23/2022 Contracture, left ankle 08/23/2022 Degeneration of lumbosacral intervertebral disc 08/23/2022 Depression 08/23/2022 Dyspepsia 08/23/2022 Eczema 08/23/2022 Estrogen deficiency 08/23/2022 External hemorrhoids 08/23/2022 Fibromyalgia 08/23/2022 Gastroesophageal reflux disease 08/23/2022 Generalized anxiety disorder 08/23/2022 Generalized osteoarthritis 08/23/2022 IGT (impaired glucose tolerance) 08/23/2022 Insomnia 08/23/2022 Irritable bowel syndrome with diarrhea 08/23/2022 Neuroma 08/23/2022 Obesity 08/23/2022 Onychomycosis due to dermatophyte 08/23/2022 Osteoarthritis of left knee 08/23/2022 Osteoporosis 08/23/2022 Other seborrheic keratosis 08/23/2022 Peripheral polyneuropathy 08/23/2022 Pes anserinus bursitis of left knee 08/23/2022 Primary localized osteoarthrosis of ankle and foot 08/23/2022 Restless legs 08/23/2022 Sinusitis 08/23/2022 Urinary incontinence 08/23/2022 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 Class 1 obesity 04/02/2019 Chronic cystitis 02/05/2023 History of adenomatous polyp of colon 08/25/2015 History of malignant neoplasm of uterine body 02/05/2023 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 Posterior tibial tendinitis, left leg 02/05/2023 Urethral stricture 02/05/2023 Resolved Ambulatory Problems Diagnosis Date Noted Osteopenia 08/23/2022 Hypertension 02/05/2023 Osteoarthritis 01/19/2015 Past Medical History: Diagnosis Date Arthritis COVID-19 vaccine administered Gallbladder disease GERD (gastroesophageal reflux disease) Obesity (BMI 30.0-34.9) OM (onychomycosis) Medications: Current Outpatient Medications: ALPRAZolam (Xanax) 0.25 MG tablet, Take 1 tablet (0.25 mg) by mouth every 6 (six) hours if needed for anxiety., Disp: 30 tablet, Rfl: 0 betamethasone dipropionate 0.05 % cream, Apply to affected areas, up to twice a day when flared, donot use one the face, groin, or underarms, 30 day supply, Disp: 45 g, Rfl: 11 carvedilol (Coreg) 25 MG tablet, Take 1 tablet (25 mg) by mouth in the morning and 1 tablet (25 mg)in the evening. Take with meals., Disp: 60 tablet, Rfl: 11 citalopram (CeleXA) 10 MG tablet, Take 1 tablet (10 mg) by mouth in the morning., Disp: , Rfl: denosumab (Prolia) 60 MG/ML solution prefilled syringe, , Disp: , Rfl: desonide (DesOwen) 0.05 % cream, , Disp: , Rfl: diclofenac sodium (Voltaren Arthritis Pain) 1 % gel, Apply 2 g topically in the morning and 2 g in the evening and 2 g before bedtime., Disp: 60 g, Rfl: 1 diclofenac sodium 1 % gel, every 8 (eight) hours, Disp: , Rfl: esomeprazole (NexIUM) [address] capsule, Take 20 mg by mouth in the morning. Take before meals. Do not open capsule., Disp: , Rfl: fexofenadine (Анна) 180 MG tablet, Take 1 tablet daily, by mouth, 30 days, Disp: 30 tablet, Rfl:11 fluticasone (Flonase) 50 MCG/ACT nasal spray, , Disp: , Rfl: hydroCHLOROthiazide (HYDRODiuril) 25 MG tablet, Take 0.5 tablets (12.5 mg) by mouth Daily, Disp: 15tablet, Rfl: 11 hydrOXYzine HCl (Atarax) 10 MG tablet, TAKE 1 TABLET BY MOUTH ONCE A DAY AT BEDTIME NEEDED FOR ITCHING, Disp: 90 tablet, Rfl: 0 hyoscyamine (Levsin) 0.125 MG SL tablet, , Disp: , Rfl: lidocaine (Lidoderm) 5 % patch, Apply 1 patch over 12 hours topically Daily Remove & discard patch within 12 hours or as directed by MD., Disp: 30 patch, Rfl: 1 predniSONE (Deltasone) 20 MG tablet, , Disp: , Rfl: triamcinolone (Kenalog) 0.1 % cream, Apply to affected areas, up to twice a day when flared, do notuse one the face, groin, or underarms, 30 day supply, Disp: 454 g, Rfl: 11 Review of systems: Constitutional: Denies fever, chills, nausea, vomiting GI: Denies abdominal pain, cramping, loose stool, gastric ulcers Musculoskeletal: Denies low back pain, knee pain, systemic arthritis Neurologic: Denies burning, tingling, transient paralysis OBJECTIVE Physical Examination: DERM: Positive hair growth to b/l feet with good skin turgor noted. Negative openings in skin. The right 3rd toe toe is incurvated and painful at the nail border. There is significant erythema and drainage with abscess formation noted. Pain on direct palpation of the incurvated border. Localized erythema circumferentially around the digit. There is no ascending cellulitis or lymphangitis noted. VASC: DP /PT were palpable bilateral. Capillary refill time < 3 seconds Digits 1-5 bilateral NEURO: [place] 5.07 monofilament was intact B/L. Vibratory sensation was intact B/L Musculoskeletal: Muscle strength was +5 over 5 all intrinsic and extrinsic muscles tested. ASSESSMENT 1. Abscess of toe, right 2. Onychocryptosis 3. Pain in right toe(s) PLAN Recommended incision and drainage of the right 3rd toe abscess. Consent forms were signed for the procedure today. The digit was anesthetized with 3 cc of 2% lidocaine plain. The digit was prepped and draped in the usual sterile manner. The offending nail border was freed proximally and at the nailbed. The nail was then split and removed in toto. The abscess was drained and copiously lavaged with normal sterile saline. Dressings consisted of Silvadene 4x4s and Coban. The patient was instructedto change the dressing daily. JAMES Benitez documented in this encounter Plan of Treatment Upcoming Encounters Date Type Department Care Team (Late st Contact Info) Description 10/08/2024 10:10 AM EDT Office Visit [facility] [address] [place] [address] Juan Aaron DPM [facility] [address] [place] [address] 10/22/2024 1:00 PM EDT Office Visit [facility] [address] [place] [address] Lala Arias MD [address] [place] [address] 07/29/2025 1:15 PM EDT Office Visit [facility] [address] [place] [address] Ninoska Reeves MD [address] [place] [address] documented as of this encounter Visit Diagnoses Diagnosis Onychocryptosis- Primary Ingrowing nail Abscess of toe, right Pain in right toe(s) documented in this encounter Care Teams Linen Grader Relationship Specialty Start Date End Date Mikel Lino MD [address] [facility] [address] [place] [address] PCP - ACO Reach 07/04/23 Rashaad Sullivan MD [address], [place] [id number] PCP - General Family Medicine 12/07/23 Simi Fernández NP [address] [id number] Nurse Practitioner Family Medicine 07/21/22 documented as of this encounter
[2024-10-07] VITALS (19 sets, daily range): BP systolic 94–210; BP diastolic 45–95; PULSE 48–103; TEMP 36.6; O2SAT 97–100; BMI 28.0
--- NOTE | 2024-10-07 20:31 | ED.EPISTAXI1 ---
HPI - Epistaxis General Chief Complaint: Epistaxis Stated Complaint: NOSE BLEED Time Seen by Provider: 10/07/24 20:27 Source: patient Mode of arrival: walk-in Limitations: no limitations History of Present Illness HPI Narrative: presents complaining of nose bleed. States started about 30min PULP GRINDER. states first started right nostril and now has also included the left. Takes ASA. History of HTN. BP is elevated tonight. States she is compliant with her medication. denies chest pain or headache. No nausea or dizziness Related Data Home Medications ?Medication ?Instructions ?Recorded ?Confirmed lisinopril 10 mg tablet 20 mg PO DAILY 01/05/23 06/09/23 Held on 06/09/23. Instructions: Doctor's Order betamethasone dipropionate 0.05 % 1 applic topical Q12H PRN rash 06/09/23 06/09/23 topical cream carvedilol 25 mg tablet 25 mg PO BID 06/09/23 06/09/23 hydrochlorothiazide 25 mg tablet 12.5 mg PO DAILY 06/09/23 06/09/23 hydroxyzine HCl 10 mg tablet 10 mg PO BEDTIME 06/09/23 06/09/23 triamcinolone acetonide 0.1 % 1 applic topical DAILY 06/09/23 06/09/23 topical cream Allergies Allergy/AdvReac Type Severity Reaction Status Date / Time No Known Drug Allergies Allergy Verified 10/07/24 20:22 Review of Systems ROS Status of ROS 10 or more systems reviewed and unremarkable except as noted in history and below [facility] Medical History (Updated 10/07/24 @ 22:41 by Carmelo Jean MD) History of syncope ?Z87.898 - Personal history of other specified conditions (ICD-10) GERD (gastroesophageal reflux disease) ?K21.9 - Gastro-esophageal reflux disease without esophagitis (ICD-10) HTN (hypertension) ?I10 - Essential (primary) hypertension (ICD-10) Recurrent syncope ?R55 - Syncope and collapse (ICD-10) Social History Smoking status: Never smoker Little interest or pleasure in doing things: not at all Feeling down, depressed, or hopeless: not at all Exam Constitutional Vital Signs, click to edit/add: Last Vital Signs Temp 97.9 F 10/07/24 20:23 Pulse 80 10/07/24 22:45 Resp 18 10/07/24 20:23 BP 145/59 H 10/07/24 22:45 Pulse Ox 99 10/07/24 22:00 O2 Del Method Room Air 10/07/24 20:23 Common normals: no apparent distress, average body habitus, oriented x3, no limitations, healthy appearing, alert and well nourished [facility] Common normals: normocephalic and head/scalp atraumatic Other: patient holding pressure on her nose Eye Common normals: PERRL, EOMs intact bilaterally and conjunctivae normal Respiratory Common normals: normal respiratory effort, no retractions, no use of accessory muscles and clear to auscultation bilaterally Cardio Common normals: S1 normal heart sound and S2 normal heart sound Rate: tachycardic GI Common normals: Normal to inspection, nondistended, normoactive bowel sounds present and soft to palpation Extremity Common normals: normal to inspection and full ROM Neuro Common normals: oriented x3, CN's II-XII intact bilaterally, moves all extremities and no focal motor deficits Psych Appearance: grossly normal Course Vital Signs Vital signs: Vital Signs Temperature 97.9 F 10/07/24 20:23 Pulse Rate 103 H 10/07/24 20:23 Respiratory Rate 18 10/07/24 20:23 Blood Pressure 210/90 H 10/07/24 20:23 Pulse Oximetry 99 10/07/24 20:23 Oxygen Delivery Method Room Air 10/07/24 20:23 Temperature 97.9 F 10/07/24 20:23 Pulse Rate 80 10/07/24 22:45 Respiratory Rate 18 10/07/24 20:23 Blood Pressure 145/59 H 10/07/24 22:45 Pulse Oximetry 99 10/07/24 22:00 Oxygen Delivery Method Room Air 10/07/24 20:23 MDM - Epistaxis MDM Narrative Medical decision making narrative: presents with epistaxis and hypertension. No headache or neuro symptoms. CBC WNL BP 210/90 on arrival. BP improved after hydralazine but she became light headed when her pressure decreased to 145 systolic. also complained of mid back pain. additiona labs and EKG ordered. monitored demonstrated bradycardia and she became nauseated. Clinically suspect vasovagal patient heart rate has now increased to 78 and she is asymptomatic. additional labs pending patient is now feeling better. Sitting on the side of the bed eating crackers. EKG nomal sinus rhythm . no acute findings and troponin is neg. Patient discharged home Lab Data Labs: Lab Results 10/07/24 Range/Units 19:43 WBC 8.7 (4.0-11.0) 10^3/uL RBC 3.81 L (4.20-5.40) 10^6/uL Hgb 12.0 (12.0-16.0) g/dL Hct 35.5 L (36.0-48.0) % MCV 93.2 (81.0-99.0) fL MCH 31.5 (26.7-34.0) pg MCHC 33.8 (29.9-35.2) g/dL RDW 13.1 (11.0-15.0) % Plt Count 297 (150-450) 10^3/uL MPV 9.3 L (9.5-13.5) fL Neut % (Auto) 56.2 (43.0-75.0) % Lymph % (Auto) 24.8 (20.5-60.0) % [place] % (Auto) 11.6 (1.7-12.0) % Eos % (Auto) 5.7 (0.9-7.0) % Baso % (Auto) 1.4 (0.2-2.0) % Neut # (Auto) 4.9 (1.4-6.5) 10^3/uL Lymph # (Auto) 2.2 (1.2-3.8) 10^3/uL [place] # (Auto) 1.0 H (0.3-0.8) 10^3/uL Eos # (Auto) 0.5 (0.0-0.7) 10^3/uL Baso # (Auto) 0.1 (0.0-0.1) 10^3/uL Abs Immat Gran (auto) 0.03 (0.00-0.03) 10^3/uL Imm/Tot Granulo (auto) 0.3 (0.0-0.5) % Sodium 139 (136-145) mmol/L Potassium 4.1 (3.5-5.1) mmol/L Chloride 102 (98-107) mmol/L Carbon Dioxide 28.5 (21.0-32.0) mmol/L Anion Gap 12.6 BUN 18.0 (7.0-18.0) mg/dL Creatinine 0.74 (0.55-1.02) mg/dL Est GFR ( Amer) >60 (>=60 mL/min/1.73m^2) Est GFR (Non-Af Amer) >60 (>=60 mL/min/1.73m^2) BUN/Creatinine Ratio 24.3 Glucose 97 (74-106) mg/dL Calcium 9.7 (8.5-10.1) mg/dL Troponin I High Sens 8.2 (4.0-51.3) pg/mL Critical Care Time Critical Care Time Total Critical Care Time: 30 Discharge Plan Discharge Chief Complaint: Epistaxis Clinical Impression: Epistaxis, Hypertension Patient Disposition: Home, Self-Care Prescriptions / Home Meds: No Action carvedilol 25 mg tablet 25 mg PO BID betamethasone dipropionate 0.05 % cream 1 applic TOPICAL Q12H PRN (Reason: rash) hydrochlorothiazide 25 mg tablet 12.5 mg PO DAILY hydroxyzine HCl 10 mg tablet 10 mg PO BEDTIME triamcinolone acetonide 0.1 % cream 1 applic TOPICAL DAILY lisinopril 10 mg tablet 20 mg PO DAILY Print Language: Thai Instructions: Nosebleed (ED), Hypertension (ED) Additional Instructions: avoid blowing your nose. Have your blood pressure rechecked tomorrow Referrals: JANIE VALDES [Primary Care Provider, Internal Medicine] - 1 week Procedures ED Procedure Instructions Procedures Procedures: epistaxis right nare. likely site of bleeder identified right nasal septum silver nitrate stick used to cauterize the site. Patinent tolerated well
--- OUTSIDE RECORDS SUMMARY | 2024-10-07 20:33 | XMS_ITS | Encounter Summary ---
Author Organization [facility] Address [address] [place] [address] Care Team Providers Care Chimney Builder Name Role Phone Mikel Lino MD Primary Care Provider [phone] Simi Fernández NP Unavailable [phone] Mikel Lino MD Unavailable [phone] Mikel Lino MD Unavailable Sunday, Joyce CANELA Unavailable [phone] Rashaad Sullivan MD Primary Care Provider [phone] Encounter Details Date Type Department Care Team (Late st Contact Info) Description 08/18/2022 Abstract [facility] [place] [facility] [address] [facility] 110 [place] [address] Mikel Lino MD [address] [facility] 110 [place] [address] Social History Tobacco Use Types Packs/Day Years Used Date Smoking Tobacco: Never Assessed Comments Unknown Sex and Gender Information Value Date Recorded Sex Assigned at Not on file Legal Sex Female 6:45 PM EDT Gender Identity Not on file Sexual Orientation Not on file documented as of this encounter Plan of Treatment Upcoming Encounters Date Type Department Care Team (Late st Contact Info) Description 10/08/2024 10:10 AM EDT Office Visit [facility] [address] [place] [address] Juan Aaron, DPM [facility] [address] [place] [address] 10/22/2024 1:00 PM EDT Office Visit [facility] [place] [facility] [address] [place] [address] Lala Arias MD [address] [place], [place] [id number] 07/29/2025 1:15 PM EDT Office Visit [facility] [place] [facility] [address] [place] [address] Ninoska Reeves MD [address] [place] [address] documented as of this encounter Visit Diagnoses Not on filedocumented in this encounter Care Teams Chimney Builder Relationship Specialty Start Date End Date Mikel Lino MD [address] [place] [address] PCP - General Internal Medicine 07/21/22 12/06/23 Mikel Lino MD [address] [place] [address] PCP - ACO Reach 07/27/22 05/03/23 Mikel Lino MD [address] [place] [address] PCP - ACO Reach 07/04/23 Rashaad Sullivan MD [address] [place] [address] PCP - General Family Medicine 12/07/23 Simi Fernández NP [address] [place] [address] Nurse Practitioner Family Medicine 07/21/22SunHubertJoyce batista LPN [address] [place] [address] Licensed Practical Nurse Family Medicine 10/18/23 10/23/23 documented as of this encounter
--- OUTSIDE RECORDS SUMMARY | 2024-10-07 20:33 | XMS_ITS | Clinical Summary ---
Author Organization [facility] Address [address] [place] [address] Care Team Providers Care Supervisor Carbon Electrodes Name Role Phone Unavailable Primary Care Provider Unavailabl e Social History Tobacco Use Types Packs/Day Years Used Date Smoking Tobacco: Never Assessed [place] Safety & Environment Answer Date Rec orded Fear of Current or Ex-Partner Not on file Emotionally Abused Not on file 04/26/2023 Physically Abused Not on file 04/26/2023 Sexually Abused Not on file 04/26/2023 Physically or Sexually Abused Not on file Comments Unknown Sex and Gender Information Value Date Recorded Sex Assigned at Not on file Legal Sex Female 9:56 PM EDT Gender Identity Not on file Sexual Orientation Not on file Plan of Treatment Health Maintenance Due Date Last Done Comments Medicare Annual Wellness (AWV) 1937 Depression Screening 1949 Adult Tetanus 1959 Pneumococcal Vaccine: 50+ Ye ars (1 of 1 - PCV) 1987 Zoster Vaccines (1 of 2) 1987 Fall Risk Screening 2002 COVID-19 Vaccine (2023-2 5 season) 2023 Influenza Vaccine (#1) 2024 HIB Vaccines Aged Out No longer eligi ble based on patient's age to complete this topic HPV Vaccines Aged Out No longer eligi ble based on patient's age to complete this topic IPV Vaccines Aged Out No longer eligi ble based on patient's age to complete this topic Meningococcal B Vaccine Aged Out No l onger eligible based on patient's age to complete this topic Meningococcal Vaccine Aged Out No bry lita eligible based on patient's age to complete this topic Rotavirus Vaccines Aged Out No longer eligible based on patient's age to complete this topic Insurance MEDICARE [place] [id number]
--- OUTSIDE RECORDS SUMMARY | 2024-10-07 20:33 | XMS_ITS | Encounter Summary ---
Author Organization [facility] Address [address] [facility] [place] [address] Care Team Providers Care Bar Examiner Name Role Phone Mikel Lino MD Primary Care Provider [phone] Simi Fernández NP Unavailable [phone] Mikel Lino MD Unavailable [phone] Mikel Lino MD Unavailable [phone] Sunday, Joyce CANELA Unavailable [phone] Rashaad Sullivan MD Primary Care Provider [phone] Encounter Details Date Type Department Care Team (Late st Contact Info) Description 01/15/[address] [place] [facility] 112 [facility] 110 [place] [address] Mikel Lino MD [address] [facility] 110 [place], [place] [address] Social History Tobacco Use Types Packs/Day Years Used Date Smoking Tobacco: Never Smokeless Tobacco: Never Alcohol Use Standard Drinks/Week Comments Never 0 (1 standard drink = 0.6 oz pur e alcohol) Comments Unknown Sex and Gender Information Value Date Recorded Sex Assigned at Not on file Legal Sex Female 6:45 PM EDT Gender Identity Not on file Sexual Orientation Not on file documented as of this encounter Plan of Treatment Upcoming Encounters Date Type Department Care Team (Late Contact Info) Description 10/08/2024 10:10 AM EDT Office Visit [facility] [address] [place] [address] Juan Aaron, DPM F[facility] [address] [facility] [place] [address] 10/22/2024 1:00 PM EDT Office Visit [facility] [place] [facility] [address] [place] [address] Lala Arias MD [address] [place] [address] 07/29/2025 1:15 PM EDT Office Visit [facility] [place] [facility] [address] [place] [address] Ninoska Reeves MD [address] [place] [address] documented as of this encounter Visit Diagnoses Not on filedocumented in this encounter Care Teams Bar Examiner Relationship Specialty Start Date End Date Mikel Lino MD [address] [facility] 110 [place] [address] PCP - General Internal Medicine 07/21/22 12/06/23 Mikel Lino MD [address] [facility] 110 [place] [address] PCP - ACO Reach 07/27/22 05/03/23 Mikel Lino MD [address] [facility] 110 [place] [address] PCP - ACO Reach 07/04/23 Rashaad Sullivan MD [address] [place] [address] PCP - General Family Medicine 12/07/23 Simi Fernández NP [address] [facility] 110 [place] [address] Nurse Practitioner Family Medicine 07/21/22Sunday, ROLA Cook [address] [facility] [address] [place] [address] Licensed Practical Nurse Family Medicine 10/18/23 10/23/23 documented as of this encounter
--- OUTSIDE RECORDS SUMMARY | 2024-10-07 20:33 | XMS_ITS | Encounter Summary ---
Author Organization [facility] Address [address] [facility] [place] [address] Care Team Providers Care Geriatric Nursing Assistant Name Role Phone Mikel Lino MD Primary Care Provider [phone] Simi Fernández NP Unavailable [phone] Mikel Lino MD Unavailable [phone] Mikel Lino MD Unavailable [phone] Sunday, Joyce CANELA Unavailable [phone] Rashaad Sullivan MD Primary Care Provider [phone] Encounter Details Date Type Department Care Team (Late st Contact Info) Description 01/15/2023 Abstract [facility] [place] [facility] 112 [facility] 110 [place] [address] Mikel Lino MD [address] [facility] 110 [place], [place] [address] Social History Tobacco Use Types Packs/Day Years [...] EDT Office Visit [facility] [address] [place] [address] Juan Aaron, DPM FACFAS [address] [facility] [place] [address] 10/22/2024 1:00 PM EDT Office Visit [facility] [...] on filedocumented in this encounter Care Teams Geriatric Nursing Assistant Relationship Specialty Start Date End Date Mikel Lino MD [address] [facility] 110 [place] [address] PCP - General Internal Medicine 07/21/22 12/06/23 Mikel Lino MD [address] [facility] 110 [place] [address] PCP - ACO Reach 07/27/22 05/03/23 Mikel Lino MD [address] [facility] 110 [place] [address] PCP - ACO Reach 07/04/23 Rashaad Sullivan MD [address] [place] [address] PCP - General Family Medicine 12/07/23 Simi Fernández NP [address] [facility] 110 [place] [address] Nurse Practitioner Family Medicine 07/21/22Sunday, ROLA Cook 112 [facility] [address] [place] [address] Licensed Practical Nurse Family Medicine 10/18/23 10/23/23 documented as of this encounter
--- OUTSIDE RECORDS SUMMARY | 2024-10-07 20:33 | XMS_ITS | Encounter Summary ---
Author Organization [facility] Address [address] [facility] [place] [place] [address] Care Team Providers Care Juvenile Corrections Officer Name Role Phone Mikel Lino MD Primary Care Provider [phone] Simi Fernández NP Unavailable [phone] Mikel Lino MD Unavailable [phone] Mikel Lino MD Unavailable [phone] Sunday, Joyce CANELA Unavailable [phone] Rashaad Sullivan MD Primary Care Provider [phone] Encounter Details Date Type Department Care Team (Late st Contact Info) Description 01/08/2023 Abstract [facility] [place] [facility] 112 [facility] 110 [place] [address] Mikel Lino MD [address] [facility] 110 [place], [place] [address] Social History Tobacco Use Types Packs/Day Years [...] EDT Office Visit [facility] [address] [place] [address] Juan Aaron, DPM FACFAS [address] [facility] [place] [address] 10/22/2024 1:00 PM EDT Office Visit [facility] [...] on filedocumented in this encounter Care Teams Juvenile Corrections Officer Relationship Specialty Start Date End Date Mikel Lino MD [address] [facility] 110 [place] [address] PCP - General Internal Medicine 07/21/22 12/06/23 Mikel Lino MD [address] [facility] 110 [place] [address] PCP - ACO Reach 07/27/22 05/03/23 Mikel Lino MD [address] [facility] 110 [place] [address] PCP - ACO Reach 07/04/23 Rashaad Sullivan MD [address] [place] [address] PCP - General Family Medicine 12/07/23 Simi Fernández NP [address] [facility] 110 [place] [address] Nurse Practitioner Family Medicine 07/21/22Sunday, ROLA Cook [address] [facility] [address] [place] [address] Licensed Practical Nurse Family Medicine 10/18/23 10/23/23 documented as of this encounter
--- OUTSIDE RECORDS SUMMARY | 2024-10-07 20:33 | XMS_ITS | Encounter Summary ---
Author Organization [facility] Address [address] [facility] [place] [address] Care Team Providers Care Allergy And Immunology Specialist Name Role Phone Mikel Lino MD Primary Care Provider [phone] Simi Fernández NP Unavailable [phone] Mikel Lino MD Unavailable [phone] Mikel Lino MD Unavailable [phone] Sunday, Joyce CANELA Unavailable [phone] Rashaad Sullivan MD Primary Care Provider [phone] Encounter Details Date Type Department Care Team (Late st Contact Info) Description 10/06/2022 Abstract [facility] [place] [facility] [address] [facility] 110 [place] [address] Ana Rosa Leung, BRAKE RELINER [address] [facility] 110 [place], [place] [address] Social History Tobacco Use Types Packs/Day Years Used Date Smoking Tobacco: Never Smokeless Tobacco: Never Tobacco Cessation:Counseling Given: Not Answered Alcohol Use Standard Drinks/Week Comments Never 0 [...] EDT Office Visit [facility] [address] [facility] [place] [address] Juan Aaron, DPM FACFAS [address] [facility] [place] [address] 10/22/2024 1:00 PM EDT Office Visit [facility] [place] [facility] [address] [place] [address] Lala Arias MD [address] [place] [address] 07/29/2025 1:15 PM EDT Office Visit [facility] [place] [facility] [address] [place] [address] Ninoska Reeves MD [address] [place] [address] documented as of this encounter Visit Diagnoses Not on filedocumented in this encounter Care Teams Allergy And Immunology Specialist Relationship Specialty Start Date End Date Mikel Lino MD [address] [facility] 110 [place] [address] PCP - General Internal Medicine 07/21/22 12/06/23 Mikel Lino MD [address] [facility] 110 [place] [address] PCP - ACO Reach 07/27/22 05/03/23 Mikel Lino MD [address] [facility] 110 [place] [address] PCP - ACO Reach 07/04/23 Rashaad Sullivan MD [address] [place] [address] PCP - General Family Medicine 12/07/23 Simi Fernández NP [address] [facility] 110 [place] [address] Nurse Practitioner Family Medicine 07/21/22Sunday, ROLA Cook [address] [place] [address] Licensed Practical Nurse Family Medicine 10/18/23 10/23/23 documented as of this encounter
--- OUTSIDE RECORDS SUMMARY | 2024-10-07 20:33 | XMS_ITS | Encounter Summary ---
Author Organization [facility] Address [address] [place] [address] Care Team Providers Care Crook Operator Name Role Phone Simi Fernández NP Unavailable [phone] Mikel Lino MD Unavailable [phone] Rashaad Sullivan MD Primary Care Provider [phone] Encounter Details Date Type Department Care Team (Late st Contact Info) Description 08/04/2024 Results Follow-Up [facility] [address] [facility] [address] [place] [address] Ninoska Reeves MD [address] [facility] 350 [place] [address] Social History Tobacco Use Types Packs/Day Years [...] EDT Office Visit [facility] [address] [place] [address] Juan Aaron, DPM FACFAS 368 [place] [address] 10/22/2024 1:00 PM EDT Office Visit [facility] [place] [facility] [address] [place] [address] Lala Arias MD [address] [place], [place] [address] 07/29/2025 1:15 PM EDT Office Visit [facility] [place] [facility] [address] [place] [address] Ninoska Reeves MD [address] [place] [address] documented as of this encounter Visit Diagnoses Not on filedocumented in this encounter Care Teams Crook Operator Relationship Specialty Start Date End Date Mikel Lino MD [address] [facility] 110 [place] [address] PCP - ACO Reach 07/04/23 Rashaad Sullivan MD [address] [place] [address] PCP - General Family Medicine 12/07/23 Simi Fernández NP [address] [facility] 110 [place] [address] Nurse Practitioner Family Medicine 07/21/22 documented as of this encounter
--- OUTSIDE RECORDS SUMMARY | 2024-10-07 20:33 | XMS_ITS | Encounter Summary ---
Author Organization [facility] Address [address] [facility] [place] [address] Care Team Providers Care Density Control Puncher Name Role Phone Mikel Lino MD Primary Care Provider [phone] Simi Fernández NP Unavailable [phone] Mikel Lino MD Unavailable [phone] Mikel Lino MD Unavailable [phone] Sunday, Joyce CANELA Unavailable [phone] Rashaad Sullivan MD Primary Care Provider [phone] Encounter Details Date Type Department Care Team (Late st Contact Info) Description 01/08/[address] [place] [facility] 112 [facility] 110 [place] [address] Mikel Lino MD [address] [facility] 110 [place], [place] [address] Social History Tobacco Use Types Packs/Day Years [...] EDT Office Visit [facility] [address] [place] [address] Juan Aaron, DPM FACFAS [address] [facility] [place] [address] 10/22/2024 1:00 PM EDT Office Visit [facility] [...] on filedocumented in this encounter Care Teams Density Control Puncher Relationship Specialty Start Date End Date Mikel Lino MD [address] [facility] 110 [place] [address] PCP - General Internal Medicine 07/21/22 12/06/23 Mikel Lino MD [address] [facility] 110 [place] [address] PCP - ACO Reach 07/27/22 05/03/23 Mikle Lino MD [address] [facility] 110 [place] [address] PCP - ACO Reach 07/04/23 Rashaad Sullivan MD [address] [place] [address] PCP - General Family Medicine 12/07/23 Simi Fernández NP [address] [facility] 110 [place] [address] Nurse Practitioner Family Medicine 07/21/22Sunday, ROLA Cook 112 [facility] [address] [place] [address] Licensed Practical Nurse Family Medicine 10/18/23 10/23/23 documented as of this encounter
--- OUTSIDE RECORDS SUMMARY | 2024-10-07 20:33 | XMS_ITS | Encounter Summary ---
Author Organization [facility] Address [address] [facility] [address] Care Team Providers Care Sailing Instructor Name Role Phone Mikel Lino MD Primary Care Provider [phone] Simi Fernández NP Unavailable [phone] Mikel Lino MD Unavailable [phone] Mikel Lino MD Unavailable [phone] Sunday, Joyce CANELA Unavailable [phone] Rashaad Sullivan MD Primary Care Provider [phone] Encounter Details Date Type Department Care Team (Late st Contact Info) Description 01/31/2023 Abstract [facility] [place] [facility] 112 [facility] 110 [place] [address] Mikel Lino MD [address] [facility] 110 [place], [place] [address] Social History Tobacco Use Types Packs/Day Years [...] EDT Office Visit [facility] [address] [place] [address] Juan Aaron, DPM FACFAS 368 [facility] [place] [address] 10/22/2024 1:00 PM EDT Office Visit [facility] [...] on filedocumented in this encounter Care Teams Sailing Instructor Relationship Specialty Start Date End Date Mikel Lino MD [address] [facility] 110 [place] [address] PCP - General Internal Medicine 07/21/22 12/06/23 Mikel Lino MD [address] [facility] 110 [place] [address] PCP - ACO Reach 07/27/22 05/03/23 Mikel Lino MD [address] [facility] 110 [place] [address] PCP - ACO Reach 07/04/23 Rashaad Sullivan MD [address] [place] [address] PCP - General Family Medicine 12/07/23 Simi Fernández NP [address] [facility] 110 [place] [address] Nurse Practitioner Family Medicine 07/21/22Sunday, ROLA Cook 112 [facility] [address] [place] [address] Licensed Practical Nurse Family Medicine 10/18/23 10/23/23 documented as of this encounter
--- OUTSIDE RECORDS SUMMARY | 2024-10-07 20:33 | XMS_ITS | Encounter Summary ---
Author Organization [facility] Address [address] [place] [address] Care Team Providers Care Medical Records Director Name Role Phone Mikel Lino MD Primary Care Provider [phone] Simi Fernández NP Unavailable [phone] Mikel Lino MD Unavailable [phone] Mikel Lino MD Unavailable [phone] Sunday, Joyce CANELA Unavailable [phone] Rashaad Sullivan MD Primary Care Provider [phone] Encounter Details Date Type Department Care Team (Late st Contact Info) Description 01/08/2023 Abstract [facility] [place] [facility] 112 [facility] 110 [place] [address] Mikel Lino MD [address] [facility] [facility] 110 [place], [place] [address] Social History Tobacco Use Types Packs/Day Years [...] EDT Office Visit [facility] [address] [place] [address] Juan Aaron, DPM FACFAS 368 [facility] [place] [address] 10/22/2024 1:00 PM EDT Office Visit [facility] [...] on filedocumented in this encounter Care Teams Medical Records Director Relationship Specialty Start Date End Date Mikel Lino MD [address] [facility] 110 [place] [address] PCP - General Internal Medicine 07/21/22 12/06/23 Mikel Lino MD [address] [facility] 110 [place] [address] PCP - ACO Reach 07/27/22 05/03/23 Mikel Lino MD [address] [facility] 110 [place] [address] PCP - ACO Reach 07/04/23 Rashaad Sullivan MD [address] [place] [address] PCP - General Family Medicine 12/07/23 Simi Fernández NP [address] [facility] 110 [place] [address] Nurse Practitioner Family Medicine 07/21/22Sunday, ROLA Cook 112 [facility] [address] [place] [address] Licensed Practical Nurse Family Medicine 10/18/23 10/23/23 documented as of this encounter
--- OUTSIDE RECORDS SUMMARY | 2024-10-07 20:33 | XMS_ITS | Encounter Summary ---
Author Organization [facility] Address [address] [facility] [place] [address] Care Team Providers Care Cosmetic Account Coordinator Name Role Phone Simi Fernández NP Unavailable [phone] Mikel Lino MD Unavailable [phone] Rashaad Sullivan MD Primary Care Provider [phone] Encounter Details Date Type Department Care Team (Late st Contact Info) Description 09/24/2024 Abstract [facility] [address] [place] [address] Juan Aaron, DPM FACFAS 368 [place] [address] Social History Tobacco Use Types Packs/Day Years [...] EDT Office Visit [facility] [address] [place] [address] Juan Aaron, DPM FACFAS 368 [place] [address] 10/22/2024 1:00 PM EDT Office Visit [facility] [place] [facility] [address] [place] [address] Lala Arias MD [address] [place] [address] 07/29/2025 1:15 PM EDT Office Visit [facility] [place] [facility] [address] [place] [address] Ninoska Reeves MD [address] [place] [address] documented as of this encounter Visit Diagnoses Not on filedocumented in this encounter Care Teams Cosmetic Account Coordinator Relationship Specialty Start Date End Date Mikel Lino MD [address] [facility] 110 [place] [address] PCP - ACO Reach 07/04/23 Rashaad Sullivan MD [address] [place] [address] PCP - General Family Medicine 12/07/23 Simi Fernández NP [address] [place] [address] Nurse Practitioner Family Medicine 07/21/22 documented as of this encounter
--- OUTSIDE RECORDS SUMMARY | 2024-10-07 20:33 | XMS_ITS | Encounter Summary ---
Author Organization [facility] Address [address] [place] [address] Care Team Providers Care Logger Driving Horses Name Role Phone Simi Fernández NP Unavailable [phone] Mikel Lino MD Unavailable [phone] Rashaad Sullivan MD Primary Care Provider [phone] Encounter Details Date Type Department Care Team (Late Contact Info) Description 09/24/2024 Bamboo flowsheet [facility] [address] [place] [address] Juan Aaron, DPM FACFAS 368 [place] [address] Social History Tobacco Use Types [...] EDT Office Visit [facility] [address] [place] [address] Juan Aaron, DPM FACFAS [address] [place] [address] 10/22/2024 1:00 PM EDT Office Visit [facility] [place] [facility] [address] [place] [address] Lala Arias MD [address] [place] [address] 07/29/2025 1:15 PM EDT Office Visit [facility] [place] [facility] [address] [place] [address] Ninoska Reeves MD [address] [place] [address] documented as of this encounter Visit Diagnoses Not on filedocumented in this encounter Care Teams Logger Driving Horses Relationship Specialty Start Date End Date Mikel Lino MD [address] [facility] 110 [place], [place] [address] PCP - ACO Reach 07/04/23 Rashaad Sullivan MD [address] [place] [address] PCP - General Family Medicine 12/07/23 Simi Fernández NP [address] [facility] 110 [place] [address] Nurse Practitioner Family Medicine 07/21/22 documented as of this encounter
--- OUTSIDE RECORDS SUMMARY | 2024-10-07 20:33 | XMS_ITS | Encounter Summary ---
Author Organization [facility] Address [address] [facility] [place] [address] Care Team Providers Care Anesthesiologist Assistant Certified Name Role Phone Mikel Lino MD Primary Care Provider [phone] Simi Fernández NP Unavailable [phone] Mikel Lino MD Unavailable [phone] Mikel Lino MD Unavailable [phone] Sunday, Joyce CANELA Unavailable [phone] Rashaad Sullivan MD Primary Care Provider [phone] Encounter Details Date Type Department Care Team (Late st Contact Info) Description 12/13/2022 Abstract [facility] [address] [facility] 110 [place] [address] Mikel Lino MD [address] [facility] 110 [place], [place] [address] Social History Tobacco Use Types Packs/Day Years [...] EDT Office Visit [facility] 368 [place] [address] Juan Aaron, DPM FACFAS 368 [facility] [place] [address] 10/22/2024 1:00 PM EDT Office Visit [facility] [...] on filedocumented in this encounter Care Teams Anesthesiologist Assistant Certified Relationship Specialty Start Date End Date Mikel Lino MD [address] [facility] 110 [place] [address] PCP - General Internal Medicine 07/21/22 12/06/23 Mikel Lino MD [address] [facility] 110 [place] [address] PCP - ACO Reach 07/27/22 05/03/23 Mikel Lino MD [address] [facility] 110 [place] [address] PCP - ACO Reach 07/04/23 Rashaad Sullivan MD [address] [place] [address] PCP - General Family Medicine 12/07/23 Simi Fernández NP [address] [facility] 110 [place] [address] Nurse Practitioner Family Medicine 07/21/22Sunday, ROLA Cook 112 [facility] [address] [place] [address] Licensed Practical Nurse Family Medicine 10/18/23 10/23/23 documented as of this encounter
--- OUTSIDE RECORDS SUMMARY | 2024-10-07 20:33 | XMS_ITS | Encounter Summary ---
Author Organization [facility] Address [address] [facility] [place] [address] Care Team Providers Care Attenuator Name Role Phone Mikel Lino MD Primary Care Provider [phone] Simi Fernández NP Unavailable [phone] Mikel Lino MD Unavailable [phone] Mikel Lino MD Unavailable [phone] Sunday, Joyce CANELA Unavailable [phone] Rashaad Sullivan MD Primary Care Provider [phone] Encounter Details Date Type Department Care Team (Late st Contact Info) Description 01/16/2023 Abstract [facility] [place] [facility] 112 [facility] 110 [place] [address] Mikel Lino MD [address] [facility] 110 [place], [place] [address] Social History Tobacco Use Types Packs/Day Years [...] EDT Office Visit [facility] 368 [place] [address] Juan Aaron, DPM FACFAS 368 [facility] [place] [place] [address] 10/22/2024 1:00 PM EDT Office Visit [facility] [...] on filedocumented in this encounter Care Teams Attenuator Relationship Specialty Start Date End Date Mikel Lino MD [address] [facility] 110 [place] [address] PCP - General Internal Medicine 07/21/22 12/06/23 Mikel Lino MD [address] [facility] 110 [place] [address] PCP - ACO Reach 07/27/22 05/03/23 Mikel Lino MD [address] [facility] 110 [place] [address] PCP - ACO Reach 07/04/23 Rashaad Sullivan MD [address] [place] [address] PCP - General Family Medicine 12/07/23 Simi Fernández NP [address] [facility] 110 [place] [address] Nurse Practitioner Family Medicine 07/21/22Sunday, ROLA Cook 112 [facility] [address] [place] [address] Licensed Practical Nurse Family Medicine 10/18/23 10/23/23 documented as of this encounter
--- OUTSIDE RECORDS SUMMARY | 2024-10-07 20:33 | XMS_ITS | Encounter Summary ---
Author Organization [facility] Address [address] [facility] [place] [address] Care Team Providers Care Otr Owner Operator Truck Driver Name Role Phone Mikel Lino MD Primary Care Provider [phone] Simi Fernández NP Unavailable [phone] Mikel Lino MD Unavailable [phone] Mikel Lino MD Unavailable [phone] Sunday, Joyce CANELA Unavailable [phone] Rashaad Sullivan MD Primary Care Provider [phone] Encounter Details Date Type Department Care Team (Late st Contact Info) Description 01/10/2023 Abstract [facility] [place] [facility] 112 [facility] 110 [place] [address] Mikel Lino MD [address] [place] 110 [place], [place] [address] Social History Tobacco Use Types Packs/Day Years [...] EDT Office Visit [facility] [address] [place] [address] Juan Aaron, DPM FACFAS 368 [facility] [place] [address] 10/22/2024 1:00 PM EDT Office Visit N[facility] [...] on filedocumented in this encounter Care Teams Otr Owner Operator Truck Driver Relationship Specialty Start Date End Date Mikel Lino MD [address] [facility] 110 [place] [address] PCP - General Internal Medicine 07/21/22 12/06/23 Mikel Lino MD [address] [facility] 110 [place] [address] PCP - ACO Reach 07/27/22 05/03/23 Mikel Lino MD [address] [facility] 110 [place] [address] PCP - ACO Reach 07/04/23 Rashaad Sullivan MD [address] [place] [address] PCP - General Family Medicine 12/07/23 Simi Fernández NP [address] [facility] 110 [place] [address] Nurse Practitioner Family Medicine 07/21/22Sunday, ROLA Cook 112 [facility] [address] [place] [address] Licensed Practical Nurse Family Medicine 10/18/23 10/23/23 documented as of this encounter
--- OUTSIDE RECORDS SUMMARY | 2024-10-07 20:33 | XMS_ITS | Encounter Summary ---
Author Organization [facility] Address [address] [place] [address] Care Team Providers Care Linen Checker Name Role Phone Mikel Lino MD Primary Care Provider [phone] Simi Fernández NP Unavailable [phone] Mikel Lino MD Unavailable [phone] Mikel Lino MD Unavailable [phone] Sunday, Joyce CANELA Unavailable [phone] Rashaad Sullivan MD Primary Care Provider [phone] Encounter Details Date Type Department Care Team (Late st Contact Info) Description 12/13/[address] [place] [facility] [address] [facility] 110 [place] [address] Mikel Lino MD [address] [facility] 110 [place], [place] [address] Social History Tobacco Use Types Packs/Day Years [...] EDT Office Visit [facility] 368 [place] [address] Juan Aaron, DPM FACFAS 368 [facility] [place] [address] 10/22/2024 1:00 PM EDT Office Visit [facility] [...] on filedocumented in this encounter Care Teams Linen Checker Relationship Specialty Start Date End Date Mikel Lino MD [address] [facility] 110 [place] [address] PCP - General Internal Medicine 07/21/22 12/06/23 Mikel Lino MD [address] [facility] 110 [place] [address] PCP - ACO Reach 07/27/22 05/03/23 Mikel Lino MD [address] [facility] 110 [place] [address] PCP - ACO Reach 07/04/23 Rashaad Sullivan MD [address] [place] [address] PCP - General Family Medicine 12/07/23 Simi Fernández NP [address] [facility] 110 [place] [address] Nurse Practitioner Family Medicine 07/21/22Sunday, ROLA Cook 112 [facility] [address] [place] [address] Licensed Practical Nurse Family Medicine 10/18/23 10/23/23 documented as of this encounter
--- OUTSIDE RECORDS SUMMARY | 2024-10-07 20:33 | XMS_ITS | Encounter Summary ---
Author Organization [facility] Address [address] [facility] [place] [address] Care Team Providers Care Social Work Case Manager Name Role Phone Mikel Lino MD Primary Care Provider [phone] Simi Fernández NP Unavailable [phone] Mikel Lino MD Unavailable [phone] Mikel Lino MD Unavailable [phone] Sunday, Joyce CANELA Unavailable [phone] Rashaad Sullivan MD Primary Care Provider [phone] Reason for Visit * Reason Comments Med Refill Encounter Details Date Type Department Care Team (Late st Contact Info) Description 12/01/2022 [facility]ill [facility] [place] [facility] [address] [place] [address] Simi Fernández, SLIVER FORMER [address] [place] [address] Other intervertebral disc degeneration, lumbosacral region Social History Tobacco Use Types Packs/Day Years [...] EDT Office Visit [facility] [address] [place] [address] Juan Aaron, DPM FACFAS 368 [facility] [place], [place] [address] 10/22/2024 1:00 PM EDT Office Visit [facility] [place] [facility] [address] [place] [address] Lala Arias MD [address] [place] [address] 07/29/2025 1:15 PM EDT Office Visit [facility] [place] [facility] [address] [place] [address] Ninoska Reeves MD [address] [place] [address] documented as of this encounter Visit Diagnoses Diagnosis Other intervertebral disc degeneration, lumbosacral region documented in this encounter Care Teams Social Work Case Manager Relationship Specialty Start Date End Date Mikel Lino MD [address] [facility] 110 [place] [address] PCP - General Internal Medicine 07/21/22 12/06/23 Mikel Lino MD [address] [facility] 110 [place] [address] PCP - ACO Reach 07/27/22 05/03/23 Mikel Lino MD [address] [facility] 110 [place] [address] PCP - ACO Reach 07/04/23 Rashaad Sullivan MD [address] [place] [address] PCP - General Family Medicine 12/07/23 Simi Fernández NP [address] [place] [address] Nurse Practitioner Family Medicine 07/21/22Sunday, ROLA Cook 112 [facility] 110 [place] [address] Licensed Practical Nurse Family Medicine 10/18/23 10/23/23 documented as of this encounter
--- OUTSIDE RECORDS SUMMARY | 2024-10-07 20:33 | XMS_ITS | Clinical Summary ---
Author Organization [facility] Address [address] [place] [address] Care Team Providers Care Public Address Announcer Name Role Phone Simi Fernández NP Unavailable [phone] Mikel Lino MD Unavailable [phone] Rashaad Sullivan MD Primary Care Provider [phone] Allergies Active Allergy Reactions Criticality Noted Date Comments Amoxicillin 08/23/2022 Other Reaction(s): GI problems Lisinopril Swelling 05/31/2023 Nitrofurantoin 08/23/2022 Other Reaction(s): GI upset Other Unknown 10/13/2022 Tape Medications denosumab (Prolia) 60 MG/ML solution prefilled syringe 2 Active desonide (DesOwen) 0.05 % cream Active diclofenac sodium 1 % gel every 8 (eight) hours Active fluticasone (Flonase) 50 MCG/ACT nasal spray Active ALPRAZolam (Xanax) 0.25 MG tabletIndications :Generalized anxiety disorder Take 1 tablet (0.25 mg) by mouth every 6 (six) hours if needed for anxiety. 30 tablet 3 Active hyoscyamine (Levsin) 0.125 MG SL tablet 3 Active esomeprazole (NexIUM) [address] capsule Take 20 mg by mouth in the morning. Take before meals. Do not open capsule. Active fexofenadine (Анна) 180 MG tabletIndications :Dermatographism Take 1 tablet daily, by mouth, 30 days 30 tablet 11 4 Active citalopram (CeleXA) 10 MG tabletIndications :Reactive depression Take 1 tablet (10 mg) by mouth in the morning. 4 Active predniSONE (Deltasone) 20 MG tablet 4 Active carvedilol (Coreg) 25 MG tabletIndications :Uncontrolled hypertension Take 1 tablet (25 mg) by mouth in the morning and 1 tablet (25 mg) in the evening. Take with meals. 60 tablet 11 4 Active hydroCHLOROthiazi de (HYDRODiuril) 25 MG tabletIndications :Uncontrolled hypertension Take 0.5 tablets (12.5 mg) by mouth Daily 15 tablet 11 4 Active triamcinolone (Kenalog) 0.1 % creamIndications: Other atopic dermatitis Apply to affected areas, up to twice a day when flared, do not use one the face, groin, or underarms, 30 day supply 454 g 11 4 Active betamethasone dipropionate 0.05 % creamIndications: Other atopic dermatitis Apply to affected areas, up to twice a day when flared, do not use one the face, groin, or underarms, 30 day supply 45 g 11 4 Active diclofenac sodium (Voltaren Arthritis Pain) 1 % gelIndications:Si nus tarsi syndrome, left Apply 2 g topically in the morning and 2 g in the evening and 2 g before bedtime. 60 g 1 4 Active lidocaine (Lidoderm) 5 % patchIndications: Arthritis of foot, left Apply 1 patch over 12 hours topically Daily Remove & discard patch within 12 hours or as directed by MD. 30 patch 1 5 Active hydrOXYzine HCl (Atarax) 10 MG tabletIndications :Other atopic dermatitis TAKE 1 TABLET BY MOUTH ONCE A DAY AT BEDTIME NEEDED FOR ITCHING 90 tablet 5 Active Active Problems Problem Noted Date Diagnosed Date Chronic cystitis 02/05/2023 History of malignant neoplasm of uterine body Posterior tibial tendinitis, left leg 02/05/2023 Urethral stricture 02/05/2023 Benign essential hypertension 08/23/2022 Bilateral lower extremity edema 08/23/2022 Bilateral primary osteoarthritis of knee 023 Cervical osteoarthritis 08/23/2022 Chronic constipation 08/23/2022 Contracture, left ankle 08/23/2022 Degeneration of lumbosacral intervertebral disc 08/23/2022 Depression 08/23/2022 Dyspepsia 08/23/2022 Eczema 08/23/2022 Estrogen deficiency 08/23/2022 External hemorrhoids 08/23/2022 Fibromyalgia 08/23/2022 Gastroesophageal reflux disease 08/23/2022 Generalized anxiety disorder 08/23/2022 Generalized osteoarthritis 08/23/2022 IGT (impaired glucose tolerance) 08/23/2022 Insomnia 08/23/2022 Irritable bowel syndrome with diarrhea Neuroma 08/23/2022 Obesity 08/23/2022 Onychomycosis due to dermatophyte 08/23/2022 Osteoarthritis of left knee 08/23/2022 Osteoporosis 08/23/2022 Other seborrheic keratosis 08/23/2022 Peripheral polyneuropathy 08/23/2022 Pes anserinus bursitis of left knee 08/23/2022 Primary localized osteoarthrosis of ankle and fo ot 08/23/2022 Restless legs 08/23/2022 Sinusitis 08/23/2022 Urinary incontinence 08/23/2022 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 Class 1 obesity 04/02/2019 History of adenomatous polyp of colon 08/25/2015 Resolved Problems Problem Noted Date Diagnosed Date Resolved Date Hypertension 02/05/2023 03/08/2023 Osteopenia 08/23/2022 03/08/2023 Osteoarthritis 01/19/2015 03/08/2023 Encounters Date Type Department Care Team Description 09/24/2024 10:20 AM EDT Clinical Support [facility] [address] [place] [address] Juan Aaron, DPM FACFAS Onychocryptosis (Primary Dx); Abscess of toe, right; Pain in right toe(s) 09/24/2024 Abstract [facility] [address] [place] [address] Juan Aaron, DPM FACFAS 09/24/2024 Bamboo flowsheet [facility] [address] [place] [address] Juan Aaron, DPM FACFAS 09/03/2024 11:50 AM EDT Clinical Support [facility] [address] [place] [address] Juan Aaron, DPPedro FACFAS Achilles tendinitis, left leg (Primary Dx); Other enthesopathy of left foot and ankle; Arthritis of foot, left; Sinus tarsi syndrome of right ankle 09/03/2024 Telephone [facility] [address] [place] [address] Juan Aaron, DPM FACFAS 08/25/2024 Refill [facility] [address] [place] [address] Ninoska Reeves MD Other atopic dermatitis 08/19/2024 9:30 AM EDT Office Visit [facility] [address] [place] [address] Chad Fields PA Primary osteoarthritis of left knee (Primary Dx); Left knee pain, unspecified chronicity 08/19/2024 8:10 AM EDT Ancillary Procedure [facility] [address] [place] [address] 08/19/2024 Travel 08/13/2024 10:50 AM EDT Clinical Support [facility] [address] [place] [address] Juan Aaron, DPM FACFAS Arthritis of foot, left (Primary Dx); Arthritis of left ankle; Other synovitis and tenosynovitis, left ankle and foot [M65.872]; Other enthesopathy of left foot and ankle 08/13/2024 Bamboo flowsheet [facility] [address] [place] [address] Juan Aaron, DPM FACFAS 08/04/2024 Results Follow-Up [facility] [address] [place] [address] Ninoska Reeves MD 07/30/2024 Abstract [facility] [address] [place] [address] Juan Aaron, DPM FACFAS 07/29/2024 1:35 PM EDT Office Visit [facility] [address] [place] [address] Ninoska Reeves MD Seborrheic keratosis (Primary Dx); Lentigines; Neoplasm of unspecified behavior of bone, soft tissue, and skin 07/29/2024 Bamboo flowsheet [facility] [address] [place] [address] Ninoska Reeves MD 07/29/2024 Travel 07/23/2024 1:50 PM EDT Office Visit [facility] [address] [place] [address] Juan Aaron, DPM FACFAS Posterior tibial tendon dysfunction (PTTD) of left lower extremity (Primary Dx); Sinus tarsi syndrome of right ankle; Arthritis of foot, left; Right foot pain; Other enthesopathy of left foot and ankle 07/23/2024 Bamboo flowsheet [facility] [address] [place] [address] Juan Aaron, DPM FACFAS from Last 3 Months Immunizations Immunization Administration Dates Next Due DTP 06/29/2020 Influenza, High Dose Seasona l, Preservative Free 02/09/2021,01/26/2021,02/05/2019,01/03,01/11/2016 Influenza, High-dose Seasona l, Quadrivalent, Preservative Free 12/28/2021,01/09/2018 Influenza, seasonal, intrade rmal, preservative free 11/26/2008 Influenza, trivalent, adjuvanted 01/12/2020 Pneumococcal Polysaccharide PPSV23 04/02/2019 Zoster, Recombinant 04/06/2022 Family History Medical History Relation Name Comments Hypertension Father Arthritis Mother Heart disease Mother Relation Name Status Comments Father Mother Social History Tobacco Use Types Packs/Day Years [...] on file Sexual Orientation Not on file Last Filed Vital Signs Vital Sign Reading Time Taken Comments Blood Pressure 131/76 09/24/2024 10:40 AM EDT Pulse 81 09/24/2024 10:40 AM EDT Temperature - - Respiratory Rate 14 05/31/2023 1:40 PM EDT Oxygen Saturation 95% 05/31/2023 1:40 PM EDT Inhaled Oxygen Concentration - - Weight 76.2 kg (168 lb) 09/24/2024 10:40 AM EDT Height 165.1 cm (5' 5 ) 09/24/2024 10:40 AM EDT Body Mass Index 27.96 09/24/2024 10:40 AM EDT Plan of Treatment Upcoming Encounters Date Type Department Care Team (Late st Contact Info) Description 10/08/2024 10:10 AM EDT Office Visit [facility] [address] [place] [address] Juan Aaron, DPM FACFAS [address] [place] [address] 10/22/2024 1:00 PM EDT Office Visit [facility] [address] [place] [address] Lala Arias MD [address] [place] [address] 07/29/2025 1:15 PM EDT Office Visit [facility] [address] [place] [address] Ninoska Reeves MD [address] [place] [address] Health Maintenance Due Date Last Done Comments Pneumococcal Vaccine: 65+ Ye ars (2 of 2 - PCV) 04/02/2020 04/02/2019 Medicare Annual Wellness (AWV) 03/08/2024 03/08/2023 , 12/28/2021 Influenza Vaccine (#1) 2024 4, 12/28/2021, 02/09/2021, Additional history exists Procedures Procedure Name Priority Date/Time Associated Diagnosis Comments UT ARTHROCENTESIS ASPIR&/INJ MAJOR JT/BURSA W/O US Routine 08/19/2024 10:12 AM EDT Primary osteoarthritis of left knee XR KNEE 3 VIEWS LEFT Routine 08/19/2024 8:08 AM EDT Left knee pain, unspecified chronicity SKIN / NAIL BIOPSY Routine 07/29/2024 1: 40 PM EDT Neoplasm of unspecified behavior of bone, soft tissue, and skin SKIN / NAIL BIOPSY Routine 07/29/2024 1: 39 PM EDT Neoplasm of unspecified behavior of bone, soft tissue, and skin ZZDERMATOPATHOLOGY EXAM UNORDERABLE Routine 07/29/2024 12:00 AM EDT Seborrheic keratosis Neoplasm of unspecified behavior of bone, soft tissue, and skin DERMATOPATHOLOGY EXAM Routine 07/29/2024 12:00 AM EDT Neoplasm of unspecified behavior of bone, soft tissue, and skin from Last 3 Months Results * UT ARTHROCENTESIS ASPIR&/INJ MAJOR JT/BURSA W/O US (08/19/2024 10:12 AM EDT) Narrative Dianna Jimenez MA - 08/19/2024 10:12 AM EDT Dianna Jimenez MA 08/19/2024 11:45 AM L Inj/Asp: L knee on 08/19/2024 10:12 AM Indications: pain Details: 25 G needle, anterolateral approach Medications: 12 mg betamethasone acetate-betamethasone sodium phosphate 6 (3-3) MG/ML Procedure, treatment alternatives, risks and benefits explained, specific risks discussed. Consent was given by the patient. Immediately prior to procedure a time out was called to verify the correct patient, procedure, equipment, other sales support worker and site/side marked as required. Patient was prepped and draped in the usual sterile fashion. us Chad ROE IN CLINIC/BEDSIDE ORDERABLES Fin al Result * XR knee 3 views left (08/19/2024 8:08 AM EDT) Anatomical Region Laterality Modality Lower Extremities, Knee Left [facility] Imaging Narrative 08/19/2024 11:43 AM EDT Imaging Result: Bilateral standing PA, bilateral sunrise, and lateral of the affected knee were imaged today in the office. Patient does have more prominent narrowing and arthritis of the medial compartment of the left knee in a moderate state. She also has some patellofemoral arthritis of both knees in the mild to moderate. No evidence of bony tumor acute fracture seen. us Chad ROE IMG XR PROCEDURES Final Result * Lesion biopsy (07/29/2024 1:40 PM EDT) Narrative Yoanna Thomas, NEIL - 07/29/2024 1:40 PM EDT Type of biopsy: tangential Informed consent: discussed and consent obtained Informed consent comment: The risks and benefits of the biopsy were discussed. Risks include but are not limited to bleeding, infection, scarring, pain, and nerve damage. An opportunity to ask questions prior to the procedure was permitted and all questions were answered. Patient was prepped and draped in usual sterile fashion: area cleansed with alcohol. Anesthesia: the lesion was anesthetized in a standard fashion Anesthetic: 1% lidocaine w/ epinephrine 1-100,000 buffered w/ 8.4% NaHCO3 Instrument used: DermaBlade Hemostasis achieved with: electrodesiccation Outcome: patient tolerated procedure well Outcome comment: The specimen was placed in a prelabeled formalin container to be sent for pathology Post-procedure details: sterile dressing applied and wound care instructions given Post-procedure details comment: Emphasized need to contact clinic for any signs of infection, uncontrollable bleeding, or complications. Dressing type: bandage Additional details: Photo taken Amount of lidocaine used: 1.0 cc us Ninoska Reeves MD DERM PROCEDURE ORDERABLES Fin al Result * Lesion biopsy (07/29/2024 1:39 PM EDT) Narrative Yoanna Thomas MA - 07/29/2024 1:39 PM EDT Type of biopsy: tangential Informed consent: discussed and consent obtained Informed consent comment: The risks and benefits of the biopsy were discussed. Risks include but are not limited to bleeding, infection, scarring, pain, and nerve damage. An opportunity to ask questions prior to the procedure was permitted and all questions were answered. Patient was prepped and draped in usual sterile fashion: area cleansed with alcohol. Anesthesia: the lesion was anesthetized in a standard fashion Anesthetic: 1% lidocaine w/ epinephrine 1-100,000 buffered w/ 8.4% NaHCO3 Instrument used: DermaBlade Hemostasis achieved with: electrodesiccation Outcome: patient tolerated procedure well Outcome comment: The specimen was placed in a prelabeled formalin container to be sent for pathology Post-procedure details: sterile dressing applied and wound care instructions given Post-procedure details comment: Emphasized need to contact clinic for any signs of infection, uncontrollable bleeding, or complications. Dressing type: bandage Additional details: Photo taken Amount of lidocaine used: 1.0 cc Ninoska Reeves MD DERM PROCEDURE ORDERABLES Fin al Result * Dermatopathology exam (07/29/2024 12:00 AM EDT) SPECIMEN TYPE SPECIMEN: RIGHT MALAR CHEEK [facility] ICD10 Code C44.329 [facility] PROTOCOL F - FLAT [facility] Final Diagnosis SQUAMOUS CELL CARCINOMA, WELL-DIFFERENTIA GUILLE, SUPERFICIALLY INVASIVE. [facility] Gross Text [facility] Microscopic Description Microscopic examination performed. [facility] SPECIMEN TYPE SPECIMEN: LEFT MALAR CHEEK [facility] ICD10 Code L57.0 [facility] PROTOCOL F - FLAT [facility] Final Diagnosis ACTINIC KERATOSIS WITH HILAR INVOLVEMENT. COMMENT: There are changes approaching those of a squamous cell carcinoma in situ. The provided clinical information implies that this represents a portion of a larger lesion. If so, the histologic features seen may not be entirely operations representative. Specimens A and B were seen in consultation with Dr. Mendoza. [facility] Gross Text [facility] Microscopic Description Microscopic examination performed. [facility] CPT 70516*2 [facility] Skin (tissue) specimen (specimen) Topography unknown / Unknown 07/29/2024 1:39 PM EDT Comment:Differential Diagnos is: ISK vs SCC Check Margins: No Size of lesion: 1.7 x 1.5 cm Skin (tissue) specimen (specimen) Topography unknown / Unknown 07/29/2024 1:40 PM EDT Comment:Differential Diagnos is: ISK vs SCC Check Margins: No Size of lesion: 1.5 x 0.8 cm Ninoska Reeves MD LAB PATHOLOGY ORDERABLES Breana peralta Result [facility] from Last 3 Months Insurance MEDICARE [facility] [place] [place] [id number] Care Teams Public Address Announcer Relationship Specialty Start Date End Date Mikel Lion MD [address] [facility] [address] [place], [place] [id number] PCP - ACO Reach 07/04/23 Rashaad Sullivan MD [address] [place] [address] PCP - General Family Medicine 12/07/23 Simi Fernández LAND EXAMINER [address] [facility] [address] [place], [place] [address] Nurse Practitioner Family Medicine 07/21/22
--- NOTE | 2024-10-07 20:34 | ECG_ITS ---
[facility] Test Date: 2024-10-07 Pat Name: JOSE SANTOYO Department: Room: - Gender: Female Site Inspector: : 1935 Requested By: [id number] Order Number: [id number] Reading MD: RHIANNON MINA M.D. Measurements Intervals [place] Rate: 90 P: 65 DE: 176 QRS: 11 QRSD: 74 T: 77 QT: 340 QTc: 388 Interpretive Statements 1100 Sinus rhythm 8102 Low QRS voltage in chest leads 9120 atypical ECG Compared to ECG 06/09/2023 10:42:27 Low QRS voltage now present Electronically Signed On 10-08-2024 6:55:49 EDT by RHIANNON MINA M.D.
--- OUTSIDE RECORDS SUMMARY | 2024-10-07 20:34 | XMS_ITS | Encounter Summary ---
Author Organization [facility] Address [address] [facility] [place] [address] Care Team Providers Care Utilization Review Coordinator Name Role Phone Mikel Lino MD Primary Care Provider [phone] Simi Fernández NP Unavailable [phone] Mikel Lino MD Unavailable Sunday, Joyce PERMIT AGENT Unavailable [phone] Rashaad Sullivan MD Primary Care Provider [phone] Encounter Details Date Type Department Care Team (Late Contact Info) Description 06/12/2023 Orders Only [facility] [address] [facility] [address] [place] [address] A, Unknown Practice [address] [place], [place] [id number] Social History Tobacco Use Types Packs/Day Years [...] EDT Office Visit [facility] [address] [facility] [address] Juan Aaron, DPM FACFAS [address] [facility] [place] [address] 10/22/2024 1:00 PM EDT Office Visit [facility] [address] [place] [address] Lala Arias MD [address] [place] [address] 07/29/2025 1:15 PM EDT Office Visit [facility] [address] [place] [address] Ninoska Reeves MD [address] [place] [address] documented as of this encounter Procedures Procedure Name Priority Date/Time Associated Diagnosis Comments ELECTROCARDIOGRAM REPORT Routine 024 11:14 AM EDT documented in this encounter Results * Electrocardiogram Report (06/09/2023 11:14 AM EDT) us Unknown Practice A IN CLINIC/BEDSIDE ORDERABLES Final Result documented in this encounter Visit Diagnoses Not on filedocumented in this encounter Care Teams Utilization Review Coordinator Relationship Specialty Start Date End Date Mikel Lino MD [address] [facility] [address] [place] [address] PCP - General Internal Medicine 07/21/22 12/06/23 Mikel Lino MD [address] [facility] [address] [place] [address] PCP - ACO Reach 07/04/23 Rashaad Sullivan MD [address] [place], [place] [id number] PCP - General Family Medicine 12/07/23 Simi Fernández NP [address] [facility] [address] [place] [address] Nurse Practitioner Family Medicine 07/21/22Sunday, ROLA Cook [address] [place] [address] Licensed Practical Nurse Family Medicine 10/18/23 10/23/23 documented as of this encounter
--- OUTSIDE RECORDS SUMMARY | 2024-10-07 20:34 | XMS_ITS | Encounter Summary ---
Author Organization [facility] Address [address] [facility] [place] [address] Care Team Providers Care Patrol Conductor Name Role Phone Mikel Lino MD Primary Care Provider [phone] Simi Fernández NP Unavailable [phone] Mikel Lino MD Unavailable [phone] Sunday, Joyce SILK SCREENER Unavailable [phone] Rashaad Sullivan MD Primary Care Provider [phone] Encounter Details Date Type Department Care Team (Late Contact Info) Description 09/03/2023 Abstract [facility] [place] [facility] [address] [facility] 110 [place] [address] Mikel Lino MD 112 [facility] 110 [place] [address] Social History Tobacco Use Types Packs/Day Years [...] EDT Office Visit [facility] [address] [place] [address] Juan Aaron, DPM FACFAS [address] [place] [address] 10/22/2024 1:00 PM EDT Office Visit [facility] [...] on filedocumented in this encounter Care Teams Patrol Conductor Relationship Specialty Start Date End Date Mikel Lino MD [address] [place] [address] PCP - General Internal Medicine 07/21/22 12/06/23 Mikel Lino MD [address] [place] [address] PCP - ACO Reach 07/04/23 Rashaad Sullivan MD [address] [place], [place] [id number] PCP - General Family Medicine 12/07/23 Simi Fernández NP [address] [place] [address] Nurse Practitioner Family Medicine 07/21/22Sunday, ROLA Cook [address] [place] [address] Licensed Practical Nurse Family Medicine 10/18/23 10/23/23 documented as of this encounter
--- OUTSIDE RECORDS SUMMARY | 2024-10-07 20:34 | XMS_ITS | Encounter Summary ---
Author Organization [facility] Address [address] [facility] [place] [address] Care Team Providers Care Loom Tuner Name Role Phone Simi Fernández NP Unavailable [phone] Mikel Lino MD Unavailable [phone] Rashaad Sullivan MD Primary Care Provider [phone] Encounter Details Date Type Department Care Team (Late st Contact Info) Description 01/03/2024 Clinisync Result Encounter [facility] External Department Unsolicited Juan Aaron, DPM F[facility] [address] [place] [address] Social History Tobacco Use Types Packs/Day Years [...] EDT Office Visit [facility] [address] [place] [address] Juan Aaron, DPM FACFAS [address] [place] [address] 10/22/2024 1:00 PM EDT Office Visit [facility] [address] [place] [address] Lala Arias MD [address] [place] [address] 07/29/2025 1:15 PM EDT Office Visit [facility] [place] [facility] [address] [place] [address] Ninsoka Reeves MD [address] [place] [address] documented as of this encounter Procedures Procedure Name Priority Date/Time Associated Diagnosis Comments MRI ANKLE W/O CONTRAST LEFT 01/03/2024 8:56 AM EDT documented in this encounter Results * MRI ANKLE W/O CONTRAST LEFT (01/03/2024 8:56 AM EDT) Anatomical Region Laterality Modality Other 01/03/2024 8:56 AM EDT Narrative 01/05/2024 1:05 PM EDT Exam Date/Time: 01/03/2024 09:25 EDT Reason for Exam: S86.312A Report IMPRESSION: Intact-appearing ankle ligaments and tendons. Mild distal Achilles tendinosis and mild plantar fasciitis. Degenerative changes as discussed. Loss of the normal fat signal of the sinus tarsi as discussed. HISTORY: Generalized left ankle pain. No recent injury. Denies prior ankle surgery. TECHNIQUE: Routine MRI of the ankle/hindfoot COMPARISON: None RESULT: Cartilage: Tibiotalar joint cartilage grossly unremarkable. Mild to moderate degenerative changes involving the subtalar joint. At least moderate degenerative changes involving the midfoot, especially the tarsometatarsal joints, with subchondral cystic changes. Ligaments: Distal tibiofibular ligaments, talofibular ligaments, calcaneofibular ligament, deltoid ligament, and spring ligament appear intact. Tendons: Mild distal Achilles tendinosis, without tear. Extensor tendons appear intact. Medial flexor tendons appear intact. Peroneal tendons appear intact. Joint Fluid: Physiologic quantity of joint fluid. Bone Marrow: No evidence of fracture, osteochondral lesion, osteomyelitis or other marrow replacing lesion. Plantar Aponeurosis: Mild thickening of the central band with associated calcaneal enthesophyte at origin, without evidence for tear. Sinus Tarsi: Loss of the normal fat signal, possibly secondary to pes planus or degenerative changes. Muscle: Muscle bulk and signal intensity is within normal limits. Tarsal Tunnel: Tarsal tunnel is within normal limits. Other: Subcutaneous edema. Report Ordering Provider: Juan Aaron FINAL REPORT Dictated: 01/05/2024 1:02 pm Mikel Pantoja MD. Signed (Electronic Signature): 01/05/2024 1:02 pm Signed by: Mikel Pantoja MD Transcribed by: VAMSI Technologist: LATONYA Technical Comments None Procedure Note Radiology, Radiologist, - 01/05/2024 Exam Date/Time: 01/03/2024 09:25 EDT Reason for Exam: [id number] Report IMPRESSION: Intact-appearing ankle ligaments and tendons. Mild distal Achilles tendinosis and mild plantar fasciitis. Degenerative changes as discussed. Loss of the normal fat signal of the sinus tarsi as discussed. HISTORY: Generalized left ankle pain. No recent injury. Denies priorankle surgery. TECHNIQUE: Routine MRI of the ankle/hindfoot COMPARISON: None RESULT: Cartilage: Tibiotalar joint cartilage grossly unremarkable. Mild tomoderate degenerative changes involving the subtalar joint. At least moderatedegenerative changes involving the midfoot, especially the tarsometatarsal joints,with subchondral cystic changes. Ligaments: Distal tibiofibular ligaments, talofibular ligaments,calcaneofibular ligament, deltoid ligament, and spring ligament appear intact. Tendons: Mild distal Achilles tendinosis, without tear. Extensor tendonsappear intact. Medial flexor tendons appear intact. Peroneal tendons appearintact. Joint Fluid: Physiologic quantity of joint fluid. Bone Marrow: No evidence of fracture, osteochondral lesion, osteomyelitisor other marrow replacing lesion. Plantar Aponeurosis: Mild thickening of the central band with associatedcalcaneal enthesophyte at origin, without evidence for tear. Sinus Tarsi: Loss of the normal fat signal, possibly secondary to pesplanus or degenerative changes. Muscle: Muscle bulk and signal intensity is within normal limits. Tarsal Tunnel: Tarsal tunnel is within normal limits. Other: Subcutaneous edema. Report Ordering Provider: Jaun Aaron FINAL REPORT Dictated: 01/05/2024 1:02 pm Mikel Pantoja MD. Signed (Electronic Signature): 01/05/2024 1:02 pm Signed by: Mikel Pantoja MD Transcribed by: VAMSI Technologist: LATONYA Technical Comments None us Juan Aaron DPM [facility] Final Result documented in this encounter Visit Diagnoses Not on filedocumented in this encounter Care Teams Loom Tuner Relationship Specialty Start Date End Date Mikel Lino MD [address] [facility] [address] [place], [place] [id number] PCP - ACO Reach 07/04/23 Rashaad Sullivan MD [facility] [place] [address] PCP - General Family Medicine 12/07/23 Simi Fernández NP [address] [facility] 110 [place] [address] Nurse Practitioner Family Medicine 07/21/22 documented as of this encounter
--- OUTSIDE RECORDS SUMMARY | 2024-10-07 20:34 | XMS_ITS | Encounter Summary ---
Author Organization [facility] Address [address] [place] [address] Care Team Providers Care Co Teacher Name Role Phone Mikel Lino MD Primary Care Provider [phone] Simi Fernández NP Unavailable [phone] Mikel Lino MD Unavailable [phone] Sunday, Joyce FASHION SHOW DIRECTOR Unavailable [phone] Rashaad Sullivan MD Primary Care Provider [phone] Encounter Details Date Type Department Care Team (Late st Contact Info) Description 05/15/2023 Abstract [facility] [address] [facility] 350 [place] [address] Ninoska Reeves MD [address] [facility] [address] [place] [address] Social History Tobacco Use Types Packs/Day Years [...] EDT Office Visit [facility] [address] [facility] [place] [address] Juan Aaron, DPM FACFAS [address] [place] [address] 10/22/2024 1:00 PM EDT Office Visit [facility] [address] [...] on filedocumented in this encounter Care Teams Co Teacher Relationship Specialty Start Date End Date Mikel Lino MD [address] [place] [address] PCP - General Internal Medicine 07/21/22 12/06/23 Mikel Lino MD [address] [place] [address] PCP - ACO Reach 07/04/23 Rashaad Sullivan MD [address] [place] [address] PCP - General Family Medicine 12/07/23 Simi Fernández NP [address] [place] [address] Nurse Practitioner Family Medicine 07/21/22Sunday, ROLA Cook [address] [place] [address] Licensed Practical Nurse Family Medicine 10/18/23 10/23/23 documented as of this encounter
--- OUTSIDE RECORDS SUMMARY | 2024-10-07 20:34 | XMS_ITS | Encounter Summary ---
Author Organization [facility] Address [address] [facility] [place] [address] Care Team Providers Care Last Remodeler Repairer Name Role Phone Mikel Lino MD Primary Care Provider Simi Fernández NP Unavailable [phone] Mikel Lino MD Unavailable [phone] Sunday, Joyce ASSEMBLER RADIO AND ELECTRICAL Unavailable [phone] Rashaad Sullivan MD Primary Care Provider [phone] Encounter Details Date Type Department Care Team (Late Contact Info) Description 05/31/2023 Abstract [facility] [place] [facility] [address] [facility] 110 [place] [phone] Mikel Lino MD 112 [facility] 110 [place] [address] Social History Tobacco Use Types [...] EDT Office Visit [facility] [address] [place] [address] Juan Aaron, DPM FACFAS [address] [place] [address] 10/22/2024 1:00 PM EDT Office Visit [facility] [place] [facility] [address] [place] [address] Lala Arias MD [address] [place] [address] 07/29/2025 1:15 PM EDT Office Visit [facility] [place] [facility] [address] [place] [address] Ninoska Reeves MD [address] [place] [address] documented as of this encounter Visit Diagnoses Not on filedocumented in this encounter Care Teams Last Remodeler Repairer Relationship Specialty Start Date End Date Mikel Lino MD [address] [place] [address] PCP - General Internal Medicine 07/21/22 12/06/23 Mikel Lino MD [address] [place] [address] PCP - ACO Reach 07/04/23 Rashaad Sullivan MD [address] [place], [place] [id number] PCP - General Family Medicine 12/07/23 Simi Fernández NP [address] [place] [address] Nurse Practitioner Family Medicine 07/21/22Sunday, ROLA Cook [address] [place] [address] Licensed Practical Nurse Family Medicine 10/18/23 10/23/23 documented as of this encounter
--- OUTSIDE RECORDS SUMMARY | 2024-10-07 20:34 | XMS_ITS | Clinical Summary ---
Author Organization [facility] Address [address] [place] [address] Care Team Providers Care Electronic Publisher Name Role Phone Unavailable Primary Care Provider Unavailabl e Active Problems Problem Noted Date Diagnosed Date NONE 05/19/2002 Social History Tobacco Use Types Packs/Day Years Used Date Smoking Tobacco: Never Alcohol Use Standard Drinks/Week Comments No 0 (1 standard drink = 0.6 oz pur e alcohol) Comments No Sex and Gender Information Value Date Recorded Sex Assigned at Not on file Legal Sex Female 9:32 AM EST Gender Identity Not on file Sexual Orientation Not on file Last Filed Vital Signs Vital Sign Reading Time Taken Comments Blood Pressure 122/84 05/19/2002 8:00 AM EST Pulse 96 05/19/2002 8:00 AM EST Temperature 36.4 C (97.5 F) 05/19/2002 8:00 AM EST Respiratory Rate - - Oxygen Saturation - - Inhaled Oxygen Concentration - - Weight 93.3 kg (205 lb 11 oz) 05/19/2002 8:00 AM EST Height - - Body Mass Index - - Plan of Treatment Health Maintenance Due Date Last Done Comments Anxiety Screening 1953 Depression Screening 1953 DTaP,Tdap,Td Vaccine (1 - Tdap) 02/12/1956 Pneumococcal Vaccine: 50+ (1 of 1 - PCV) 1987 Shingrix Vaccine (1 of 2) 1987 Bone Density Screening 2002 Diabetes Screening 05/19/2005 05/19/2002 RSV Vaccine (1 - 1-dose 75+ series) 02/12/2012 Advance Directive Discussion 03/05/2024 Influenza Vaccine (#1) 2024 Procedures Procedure Name Priority Date/Time Associated Diagnosis Comments COMPREHENSIVE METABOLIC PANEL Routine 05/19/2002 10:28 AM EST Myalgia And Myositis Nos from Last 3 Months or Most Recently Relevant to Health Maintenance Results * (ABNORMAL) COMP METABOLIC PANEL (05/19/2002 10:28 AM EST) Protein, Total 7.6 6.0 - 8.4 g/dL [facility] Albumin 4.8 3.5 - 5.0 g/dL [facility] Calcium 10.4 8.5 - 10.5 mg/dL [facility] Bilirubin, Total 0.5 0.0 - 1.5 mg/dL [facility] Alkaline Phosphatase 124 40 - 150 U/L [facility] AST 18 7 - 40 U/L [facility] Glucose 93 65 - 110 mg/dL [facility] BUN 12 8 - 25 mg/dL [facility] Creatinine 0.6(A) 0.7 - 1.4 mg/dL [facility] Sodium 143 132 - 148 mmol/L [facility] Potassium 4.6 3.5 - 5.0 mmol/L [facility] Chloride 104 98 - 110 mmol/L [facility] CO2 28 24 - 32 mmol/L [facility] Anion Gap 11 0 - 15 mmol/L [facility] ALT 14 0 - 45 U/L [facility] Blood specimen (specimen) BLOOD SPECIMEN / Unknown 05/19/2002 10:28 AM EST us Diego Flores LABORATORY Final Result [facility] [address] [place] [address] from Last 3 Months or Most Recently Relevant to Health Maintenance Insurance [address]ARE [address]
--- OUTSIDE RECORDS SUMMARY | 2024-10-07 20:34 | XMS_ITS | Encounter Summary ---
Author Organization [facility] Address [address] [place] [address] Care Team Providers Care Flight Radio Operator Name Role Phone Mikel Lino MD Primary Care Provider [phone] Simi Fernández NP Unavailable [phone] Mikel Lino MD Unavailable [phone] Sunday, Joyce COMBER OPERATOR Unavailable [phone] Rashaad Sullivan MD Primary Care Provider [phone] Encounter Details Date Type Department Care Team (Late st Contact Info) Description 08/28/2023 Clinisync Result Encounter [facility] External Department Unsolicited Provider, Generic External Data Social History Tobacco Use Types Packs/Day Years [...] EDT Office Visit [facility] [address] [place] [address] Juan Aaron, DPM FACFAS [address] [facility] [address] [place] [address] 10/22/2024 1:00 PM EDT Office Visit [facility] [address] [place] [address] Lala Arias MD [address] [place] [address] 07/29/2025 1:15 PM EDT Office Visit [facility] [place] [facility] [address] [place] [address] Ninoska Reeves MD [address] [place] [address] documented as of this encounter Procedures Procedure Name Priority Date/Time Associated Diagnosis Comments XR ANKLE GOPAL MIN 3 VIEWS 08/28/2023 3:09 PM EDT documented in this encounter Results * XR ANKLE GOPAL MIN 3 VIEWS (08/28/2023 3:09 PM EDT) Anatomical Region Laterality Modality Radiographic Faustina ging 08/28/2023 3:09 PM EDT Narrative 08/28/2023 3:11 PM EDT [address] [address] XRay Report Signed Patient: JOSE SANTOYO MR#: [id number] : 1935 Acct:[id number] Age/Sex: 88 / F ADM Date: 08/28/23 Loc: EC Attending Dr: Kandis Marc D.P.M. Ordering Physician: Kandis Marc D.P.M. Date of Service: 08/28/23 Procedure(s): XR ankle GOPAL min 3V Accession Number(s): [id number] cc: MIKEL LINO ; Kandis Marc D.P.M. The [address] [address] Patient Name: JOSE SANTOYO MRN: [id number] date: 1935 Sex: F Assigned Patient Location: EC Current Patient Location: EC Accession/Order Number: [id number] Exam Date: 08/28/2023 14:28 Report Date: 08/28/2023 15:09 At the request of: KANDIS MARC Procedure: XR ankle GOPAL min 3V EXAMINATION: XR ankle GOPAL min 3V HISTORY: BILATERAL ANKLE PAIN COMPARISON: No relevant comparison available. FINDINGS: RIGHT FINDINGS: BONES: No acute fracture or dislocation. Mild to moderate enthesopathic spurring of the calcaneus at the Achilles and plantar insertions SOFT TISSUES: Negative. No visible soft tissue swelling. OTHER: Negative. LEFT FINDINGS: BONES: No acute fracture or dislocation. Mild to moderate enthesopathic spurring of the calcaneus at the Achilles and plantar insertions SOFT TISSUES: Negative. No visible soft tissue swelling. OTHER: Negative. 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 Signed By: 08/28/23 1511 DD/ 1509 TD/TT: Manager Strategic Development: Procedure Note Radiology, Radiologist, MD - 08/28/2023 [place] [address] XRay Report Signed Patient: JOSE SANTOYO JMR#: [id number] : 1935cct:[id number] Age/Sex: 88 / FADM Date: 08/28/23 Loc: EC Attending Dr: Kandis Marc D.P.M. Ordering Physician: Kandis Marc D.P.M. Date of Service: 08/28/23 Procedure(s): XR ankle GOPAL min 3V Accession Number(s): [id number] cc: MIKEL LINO ; Kandis Marc D.P.M. The [place] [address] Patient Name: JOSE SANTOYO MRN: [id number] date: 1935 Sex: F Assigned Patient Location: Current Patient Location: Accession/Order Number: [id number] Exam Date: 08/28/2023 14:28 Report Date: 08/28/2023 15:09 At the request of: KANDIS MARC Procedure: XR ankle GOPAL min 3V EXAMINATION: XR ankle GOPAL min 3V HISTORY: BILATERAL ANKLE PAIN COMPARISON: No relevant comparison available. FINDINGS: RIGHT FINDINGS: BONES: No acute fracture or dislocation. Mild to moderate enthesopathic spurring of the calcaneus at the Achilles and plantar insertions SOFT TISSUES: Negative. No visible soft tissue swelling. OTHER: Negative. LEFT FINDINGS: BONES: No acute fracture or dislocation. Mild to moderate enthesopathic spurring of the calcaneus at the Achilles and plantar insertions SOFT TISSUES: Negative. No visible soft tissue swelling. OTHER: Negative. 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 Signed By:08/28/23 1511 DD/ 1509 TD/TT: Manager Strategic Development: Generic External Data Provider IMG XR PROCEDURES Final Result documented in this encounter Visit Diagnoses Not on filedocumented in this encounter Care Teams Flight Radio Operator Relationship Specialty Start Date End Date Mikel Lino MD [address] [facility] 110 [place] [address] PCP - General Internal Medicine 07/21/22 12/06/23 Mikel Lino MD [address] [facility] 110 [place] [address] PCP - ACO Reach 07/04/23 Rashaad Sullivan MD [address] [place] [address] PCP - General Family Medicine 12/07/23 Simi Fernández NP [address] [place] [address] Nurse Practitioner Family Medicine 07/21/22Sunday, ROLA Cook [address] [place] [address] Licensed Practical Nurse Family Medicine 10/18/23 10/23/23 documented as of this encounter
--- OUTSIDE RECORDS SUMMARY | 2024-10-07 20:34 | XMS_ITS | Encounter Summary ---
Author Organization [facility] Address [address] [facility] [place] [address] Care Team Providers Care Supervisor Maple Products Name Role Phone Mikel Lino MD Primary Care Provider [phone] Simi Fernández NP Unavailable [phone] Mikel Lino MD Unavailable [phone] Sunday, Joyce MECHANIC Unavailable [phone] Rashaad Sullivan MD Primary Care Provider [phone] Encounter Details Date Type Department Care Team (Late Contact Info) Description 05/28/[address] [place] [facility] 112 [facility] 110 [place] [address] Mikel Lino MD 112 [facility] 110 [place] [address] Social History Tobacco Use Types [...] EDT Office Visit [facility] [address] [place] [address] Juan Aaron, DPM FACFAS [address] [place] [address] 10/22/2024 1:00 PM EDT Office Visit [facility] [place] [facility] [address] [place] [address] Lala Arias MD [address] [place] [address] 07/29/2025 1:15 PM EDT Office Visit [facility] [place] [facility] [address] [place] [address] Ninoska Reeves MD [address] [place] [address] documented as of this encounter Visit Diagnoses Not on filedocumented in this encounter Care Teams Supervisor Maple Products Relationship Specialty Start Date End Date Mikel Lino MD [address] [place] [address] PCP - General Internal Medicine 07/21/22 12/06/23 Mikel Lino MD [address] [place] [address] PCP - ACO Reach 07/04/23 Rashaad Sullivan MD [address] [place], [place] [address] PCP - General Family Medicine 12/07/23 Simi Fernández NP [address] [place] [address] Nurse Practitioner Family Medicine 07/21/22Sunday, ROLA Cook [address] [place] [address] Licensed Practical Nurse Family Medicine 10/18/23 10/23/23 documented as of this encounter
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
--- OUTSIDE RECORDS SUMMARY | 2024-10-07 20:34 | XMS_ITS | Encounter Summary ---
Author Organization [facility] Address [address] [facility] [place] [address] Care Team Providers Care Music Theory Teacher Name Role Phone Mikel Lino MD Primary Care Provider [phone] Simi Fernández NP Unavailable [phone] Mikel Lino MD Unavailable [phone] Mikel Lino MD Unavailable [phone] Sunday, Joyce CANELA Unavailable [phone] Rashaad Sullivan MD Primary Care Provider [phone] Encounter Details Date Type Department Care Team (Late st Contact Info) Description 03/14/2023 Abstract [facility] [place] [facility] [address] [facility] [address] [place] [id number] Mikel Lino MD [address] [facility] [address] [place] [address] Social History Tobacco Use Types [...] Office Visit [facility] [address] [place] [address] Juan Aaron, DPM FACFAS [address] [facility] [place] [address] 10/22/2024 1:00 PM EDT Office Visit [facility] [address] [place] [address] Lala Arias MD [address] [place] [address] 07/29/2025 1:15 PM EDT Office Visit [facility] [address] [place] [address] Ninoska Reeves MD [address] [place] [address] documented as of this encounter Visit Diagnoses Not on filedocumented in this encounter Care Teams Music Theory Teacher Relationship Specialty Start Date End Date Mikel Lino MD [address] [place] [address] PCP - General Internal Medicine 07/21/22 12/06/23 Mikel Lino MD [address] [place] [address] PCP - ACO Reach 07/27/22 05/03/23 Mikel Lino MD [address] [place] [address] PCP - ACO Reach 07/04/23 Rashaad Sullivan MD [address] [place] [address] PCP - General Family Medicine 12/07/23 Simi Fernández NP [address] [place] [address] Nurse Practitioner Family Medicine 07/21/22Sunday, ROLA Cook [address] [facility] [address] [place] [address] Licensed Practical Nurse Family Medicine 10/18/23 10/23/23 documented as of this encounter
--- OUTSIDE RECORDS SUMMARY | 2024-10-07 20:34 | XMS_ITS | Patient Health Record ---
Author Organization [facility] [place] Address [address] [place] [address] Care Team Providers Care Allergist/Immunologist Name Role Phone Mikel Lino MD Primary Care Provider Unavailab le Allergies No Known Allergies Reason For Referral No Information Medications Medication SIG (Take, Route, Frequency, Duration) [...] Problem Status W/U Status Risk Notes Problem [id number] Primary osteoarthriti s, right ankle and foot (M19.071) Active confirmed Problem [id number] Primary osteoarthriti s, left ankle and foot (M19.072) Active confirmed Problem 836237190 Hallux rigidus, 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) Active confirmed Problem 428035313 Hallux rigidus, left foot (M20.22) Active confirmed Problem [id number] Posterior tibial tendinitis, right leg (M76.821) Active confirmed Problem [id number] Posterior tibial tendinitis, left leg (M76.822) Active confirmed Problem Altered mental statu s (620495037) Altered mental status (R41.82) Active confirmed Plan Of Treatment Pending Test Test Name Order Date XR ankle GOPLA min 3V 08/28/2023 Insurance Providers Payer Name Payer Address Payer Phone Subscriber Number Group Number Insured Name Patient Relationship to Insured Coverage Start Date Coverage End Date [place] [address] [place] [address] [id number] Alessandra Salazar Self - patient is the insured 2 Medications Administered Medication Instructions Date of Administration Dosage Notes Celestone 6mg/mL 12/05/2022 1 mL Celestone 6mg/mL 12/05/2022 1 mL Celestone 6mg/mL 12/05/2022 0.5 mL right 1s t MPJ Celestone 6mg/mL 12/12/2022 0.5 mL left 1st MPJ Celestone 6mg/mL 05/17/2023 1 mL Celestone 6mg/mL 05/17/2023 1 mL DEPO-Medrol 08/08/2022 2 mL 1 mL right ankle 1 mL left ankle Lidocaine HCl 12/05/2022 1 mL Lidocaine HCl 12/05/2022 1 mL Lidocaine HCl 12/05/2022 0.5 mL left 1st MP J Lidocaine HCl 12/05/2022 0.5 mL right 1st M PJ Lidocaine HCl 08/08/2022 2 mL 1 mL right ankle 1 mL left ankle Medical (General) History Medical History History ICD Code 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
[2024-10-07 20:45] LABS: Hematocrit 35.5 % (36.0-48.0); Hemoglobin 12.0 g/dL (12.0-16.0); Immature Granulocytes Abs Auto 0.03 10^3/uL (0.00-0.03); Immature Granulocytes Pct Auto 0.3 % (0.0-0.5); Lymphocytes Absolute Auto 2.2 10^3/uL (1.2-3.8); Mean Corpuscular HGB Conc 33.8 g/dL (29.9-35.2); Mean Corpuscular Hemoglobin 31.5 pg (26.7-34.0); Mean Corpuscular Volume 93.2 fL (81.0-99.0); Platelet Count 297 10^3/uL (150-450); Red Blood Count 3.81 10^6/uL (4.20-5.40); White Blood Count 8.7 10^3/uL (4.0-11.0)
[2024-10-07] MEDS: HYDRALAZINE HCL 20 MG/ML VIAL 5 MG IVP ×2 (20:46→22:26)
[2024-10-07 20:59] LABS: Anion Gap 12.6; Blood Urea Nitrogen 18.0 mg/dL (7.0-18.0); Calcium 9.7 mg/dL (8.5-10.1); Carbon Dioxide 28.5 mmol/L (21.0-32.0); Chloride 102 mmol/L (98-107); Estimated GFR (African America >60 (>=60 mL/min/1.73m^2); Estimated GFR (Non-African Ame >60 (>=60 mL/min/1.73m^2); Glucose 97 mg/dL (74-106); Potassium 4.1 mmol/L (3.5-5.1); Sodium 139 mmol/L (136-145)
[2024-10-07] MEDS: LIDOCAINE/EPINEPHRINE/TETRACAINE 3 ML GEL.PF.APP TOPICAL (22:26)
[2024-10-07] MEDS: SILVER NITRATE APPLICATOR STICK 2 APPLIC TOPICAL (22:54)
[2024-10-07] MEDS: 0.9 % SODIUM CHLORIDE 500 ML IV (23:17)
[2024-10-07] MEDS: ACETAMINOPHEN 500 MG TABLET 1000 MG PO (23:18)
[2024-10-08] VITALS: BP 146/67; PULSE 80
== END 2024-10-08 00:24 | disposition home or self-care (01) ==
PROVIDERS: Emergency Provider Internal Medicine; PCP Internal Medicine
DX: R04.0 Epistaxis (principal); I10 Essential (primary) hypertension; Z79.899 Other long term (current) drug therapy
CPT/HCPCS: 30901; 36415; 80048; 84484; 85025; 93005; 96374; 96375; 96376; 99285; J0360; J2405

== ENCOUNTER 2025-02-05 12:40 | Emergency (ER) | payer MEDICARE, OTHER, SELFPAY ==
[2025-02-05] VITALS (24 sets, daily range): BP systolic 158–212; BP diastolic 69–114; PULSE 70–93; TEMP 37.2; O2SAT 98; BMI 27.5
--- NOTE | 2025-02-05 13:22 | ECG_ITS ---
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 Measurements Intervals Felda Rate: 82 P: 72 NM: 182 QRS: -7 QRSD: 76 T: 63 QT: 366 QTc: 405 Interpretive Statements 1100 Sinus rhythm 9110 normal ECG Compared to ECG 10/07/2024 20:34:21 No significant changes Electronically Signed On 02-05-2025 20:49:50 EST by RHIANNON MINA M.D.
[2025-02-05 13:27] LABS: Hematocrit 34.1 % (36.0-48.0); Hemoglobin 11.6 g/dL (12.0-16.0); Immature Granulocytes Abs Auto 0.02 10^3/uL (0.00-0.03); Immature Granulocytes Pct Auto 0.3 % (0.0-0.5); Lymphocytes Absolute Auto 1.4 10^3/uL (1.2-3.8); Mean Corpuscular HGB Conc 34.0 g/dL (29.9-35.2); Mean Corpuscular Hemoglobin 31.5 pg (26.7-34.0); Mean Corpuscular Volume 92.7 fL (81.0-99.0); Platelet Count 301 10^3/uL (150-450); Red Blood Count 3.68 10^6/uL (4.20-5.40); White Blood Count 7.3 10^3/uL (4.0-11.0)
[2025-02-05 13:36] LABS: Alanine Aminotransferase 16 U/L (14-59); Albumin Globulin Ratio 1.1; Albumin Level 3.6 g/dL (3.4-5.0); Alkaline Phosphatase 115 U/L (46-116); Anion Gap 12.1; Aspartate Amino Transferase 15 U/L (15-37); Blood Urea Nitrogen 17.0 mg/dL (7.0-18.0); Calcium 9.2 mg/dL (8.5-10.1); Carbon Dioxide 28.1 mmol/L (21.0-32.0); Chloride 104 mmol/L (98-107); Estimated GFR (African America >60 (>=60 mL/min/1.73m^2); Estimated GFR (Non-African Ame >60 (>=60 mL/min/1.73m^2); Globulin 3.4 g/dL; Glucose 92 mg/dL (74-106); Potassium 4.2 mmol/L (3.5-5.1); Sodium 140 mmol/L (136-145); Total Protein 7.0 g/dL (6.4-8.2)
--- NOTE | 2025-02-05 13:43 | XR_ITS ---
The [address] [address] Patient Name: JOSE SANTOYO MRN: [id number] date: 1935 Sex: F Assigned Patient Location: ER Current Patient Location: ER Accession/Order Number: [id number] Exam Date: 02/05/2025 14:00 Report Date: 02/05/2025 14:11 At the request of: SANGEETA ROE Procedure: XR chest 1V XR chest 1V 02/05/2025 2:01 PM SIGNS AND SYMPTOMS: ^SOB PROTOCOL: Frontal radiograph of the chest COMPARISON: 06/09/2023 FINDINGS: The trachea is midline. Atherosclerotic calcifications are present in the thoracic aorta. Calcified lymph nodes are noted in the left hilum. The heart and mediastinal structures are within normal limits. Mild airspace opacities within the left lung base. The bony thorax is intact. Degenerative changes are noted in the thoracic spine and shoulders. XR/XR chest 1V IMPRESSION: Mild airspace opacities within the left lung base. This may represent atelectasis or infiltrate. Impression dictated by: Fritz Ortega M.D. 02/05/2025 2:11 PM Dictation Location: [employer] Electronically authenticated by: [id number] Y Date: 02/05/2025 14:11
--- NOTE | 2025-02-05 13:46 | ED_ITS ---
HPI HPI - General Adult General Chief complaint: Recheck/Abnormal Lab/Rx Stated complaint: WEAKNESS Time Seen by Provider: 02/05/25 13:16 Source: patient Mode of arrival: walk-in Limitations: no limitations History of Present Illness HPI narrative: Patient is an 89-year-old female with a PMH of hypertension that presents emergency department with complaints of high blood pressure at home and overall just not feeling good which she describes as fatigue. She denies any headaches out of the normal, no dizziness, has had some ringing in her ears for many months. She does wear hearing aid. She denies any chest pain but is having some intermittent shortness of breath. She takes losartan and amlodipine for her blood pressure. She normally takes her BP weekly at home, took it yesterday and noticed it was about 150/70 and again took it this morning and it was 192/85 and decided to come to the ER. She was here in October with a nosebleed when her blood pressure was last elevated, she received hydralazine and then became dizzy and nauseous as her blood pressure dropped too fast. Related Data Home Medications ?Medication ?Instructions ?Recorded ?Confirmed betamethasone dipropionate 0.05 % 1 applic topical Q12 H PRN rash 06/09/23 06/09/23 topical cream alprazolam 0.25 mg tablet mg 02/05/25 amlodipine 5 mg tablet 5 mg PO DAILY 02/05/2502/05 aspirin 81 mg tablet,delayed 81 mg PO DAILY 02/05/25 1 04/08/24 release atorvastatin 40 mg tablet 40 mg 02/05/25 Held on 02/05/25. Instructions: Doctor's Order esomeprazole magnesium 40 mg mg 02/05/25 capsule,delayed release fexofenadine 180 mg tablet 180 mg PO DAILY PRN itching 02/05/25 02/05/25 (Анна Allergy) losartan 25 mg tablet 25 mg PO DAILY 02/05/2506/27 meloxicam 15 mg tablet 15 mg PO DAILY PRN inflammat ion 02/05/25 02/05/25 trazodone 50 mg tablet 50 mg PO .COMPLEX PRN sleep 02/05/25 02/05/25 Allergies Allergy/AdvReac Type Severity Reaction Status Date / Time No Known Drug Allergies Allergy Verified 02/05/25 12:50 Opioid HPI Opioid Management Most Recent Opioid Data: Last Pain Scale 2 01/05/23, 21:00 Review of Systems ROS Status of ROS 10 or more systems reviewed and unremark able except as noted in history and below [facility] Medical History (Updated 02/05/25 @ 16:28 by JYOTHI Mendez) History of syncope ?Z87.898 - Personal history of other specified conditions (ICD-10) GERD (gastroesophageal reflux disease) ?K21.9 - Gastro-esophageal reflux disease without esophagitis (ICD-10) HTN (hypertension) ?I10 - Essential (primary) hypertension (ICD-10) Recurrent syncope ?R55 - Syncope and collapse (ICD-10) Social History Smoking status: Never smoker Little interest or pleasure in doing things: not at all Feeling down, depressed, or hopeless: not at all Exam Narrative Exam Narrative: General: No distress, age-appropriate Skin: Warm, dry, no pallor. No rash. Head: Normocephalic, atraumatic. Neck: Supple, non-tender. Eye: Pupils are equal, round and EOMI. No scleral icterus. Ears, Nose, Mouth, and Throat: No nasal mucosal hypertrophy. Oral mucosa is moist, no posterior oropharynx erythema, uvula is mid-line Cardiovascular: Regular Rate and Rhythm without murmur, gallop or rub. Respiratory: No accessory muscle use or respiratory distress. Lungs are clear to auscultation, no wheezing, rales or rhonchi Chest Wall: no tenderness Back: No midline thoracic or lumbar vertebral tenderness. Musculoskeletal: Full ROM of all extremities, no calf or popliteal tenderness GI: Abdomen is soft, non-distended, non tender to palpation. No masses appreciated. No rebound, guarding, or rigidity noted. Neurological: A&O x4. No cranial nerve dysfunction observed. No truncal ataxia. Moves all extremities. Sensation intact. Psychiatric: Cooperative and interactive. Normal mood and affect. Constitutional Vital Signs, click to edit/add: Last Vital Signs Temp 98.9 F 02/05/25 12:50 Pulse 76 02/05/25 15:24 Resp 26 H 02/05/25 15:24 BP 158/73 H 02/05/25 16:24 Pulse Ox 98 02/05/25 13:12 O2 Del Method Room Air 02/05/25 13:12 Documenting provider has reviewed patient's vital signs: yes Course Vital Signs Vital signs: Vital Signs Temperature 98.9 F 02/05/25 12:50 Pulse Rate 92 H 02/05/25 12:50 Respiratory Rate 18 02/05/25 12:50 Pulse Oximetry 98 02/05/25 12:50 Oxygen Delivery Method Room Air 02/05/25 12:50 Temperature 98.9 F 02/05/25 12:50 Pulse Rate 76 02/05/25 15:24 Respiratory Rate 26 H 02/05/25 15:24 Blood Pressure 158/73 H 02/05/25 16:24 Pulse Oximetry 98 02/05/25 13:12 Oxygen Delivery Method Room Air 02/05/25 13:12 Medical Decision Making MDM Narrative Medical decision making narrative: The patient is an 89-year-old female with a history of HTN who presented with significantly elevated blood pressure (212/114) and generalized fatigue. She denied chest pain, focal neurological deficits, or acute shortness of breath. On exam, she was afebrile with clear lungs, no rales or wheezing, and a normal cardiovascular and neurological exam. IV placed. CBC, CMP, Trop, UA, EKG ordered. Labs revealed Hgb 11.6 stable from 12 in October, CMP within normal limits, troponin 6.1 (WNL), BNP 663, and urinalysis with trace ketones, small leukocyte esterase, 5?10 WBCs, and trace bacteria. EKG showed normal sinus rhythm at 82 bpm without ischemic changes. Chest X-ray demonstrated mild left basilar airspace opacity, likely atelectasis rather than infectious infiltrate. The patient was administered 5 mg IV labetalol, resulting in an appropriate BP reduction to 173/76 (~18% systolic reduction), without hypotensive symptoms. On recheck after that it had juan to 191/73, another 5mg Labetalol ordered and I discussed plan with patient and her daughter at bedside, but patient noted this was right after she was walking around after going to the bathroom and requested we hold this and recheck the BP in another few minutes. On recheck it was 172/69 and labetalol ordered was canceled. Given the absence of end-organ damage, normal labs, reassuring cardiac workup, and stable clinical status, this p resentation is consistent with hypertensive urgency. The patient tolerated therapy well, achieved the initial BP goal, and is safe for discharge with continuation of home antihypertensives, strict outpatient follow-up, and return precautions. Differential Diagnosis Differential Diagnosis: Hypertensive urgency, hypertensive emergency, HF/volume overload, UTI Lab Data Lab results reviewed: Yes I reviewed the patient's lab results Labs: Lab Results 02/05/25 02/05/25 Range/Units 13:10 15:24 WBC 7.3 (4.0-11.0) 10^3/uL RBC 3.68 L (4.20-5.40) 10^6/uL Hgb 11.6 L (12.0-16.0) g/dL Hct 34.1 L (36.0-48.0) % MCV 92.7 (81.0-99.0) fL MCH 31.5 (26.7-34.0) pg MCHC 34.0 (29.9-35.2) g/dL RDW 12.8 (11.0-15.0) % Plt Count 301 (150-450) 10^3/uL MPV 9.5 (9.5-13.5) fL Neut % (Auto) 65.3 (43.0-75.0) % Lymph % (Auto) 18.6 L (20.5-60.0) % [place] % (Auto) 10.2 (1.7-12.0) % Eos % (Auto) 4.5 (0.9-7.0) % Baso % (Auto) 1.1 (0.2-2.0) % Neut # (Auto) 4.8 (1.4-6.5) 10^3/uL Lymph # (Auto) 1.4 (1.2-3.8) 10^3/uL [place] # (Auto) 0.8 (0.3-0.8) 10^3/uL Eos # (Auto) 0.3 (0.0-0.7) 10^3/uL Baso # (Auto) 0.1 (0.0-0.1) 10^3/uL Abs Immat Gran (auto) 0.02 (0.00-0.03) 10^3/uL Imm/Tot Granulo (auto) 0.3 (0.0-0.5) % Sodium 140 (136-145) mmol/L Potassium 4.2 (3.5-5.1) mmol/L Chloride 104 (98-107) mmol/L Carbon Dioxide 28.1 (21.0-32.0) mmol/L Anion Gap 12.1 BUN 17.0 (7.0-18.0) mg/dL Creatinine 0.78 (0.55-1.02) mg/dL Est GFR ( Amer) >60 (>=60 mL/min/1.73m^2) Est GFR (Non-Af Amer) >60 (>=60 mL/min/1.73m^2) BUN/Creatinine Ratio 21.8 Glucose 92 (74-106) mg/dL Calcium 9.2 (8.5-10.1) mg/dL Total Bilirubin 0.5 (0.2-1.0) mg/dL AST 15 (15-37) U/L ALT 16 (14-59) U/L Alkaline Phosphatase 115 (46-116) U/L Troponin I High Sens 6.1 (4.0-51.3) pg/mL NT-Pro-B Natriuret Pep 663.0 (<=1800.0) pg/mL Total Protein 7.0 (6.4-8.2) g/dL Albumin 3.6 (3.4-5.0) g/dL Globulin 3.4 g/dL Albumin/Globulin Ratio 1.1 Urine Color Lt. yellow (YELLOW) Urine Clarity Clear (CLEAR) Urine pH 6.5 (5.0-9.0) Ur Specific [place] <=1.005 A (1.005-1.025) Urine Protein Negative (NEG/TRACE) mg/dL Urine Glucose (UA) Negative (NEGATIVE) mg/dL Urine Ketones Trace A (NEGATIVE) mg/dL Urine Occult Blood Negative (NEGATIVE) Urine Nitrite Negative (NEGATIVE) Urine Bilirubin Negative (NEGATIVE) Urine Urobilinogen 0.2 (0.2-1.0) EU/dL Ur Leukocyte Esterase Small A (NEGATIVE) Urine RBC 0-2 (0-2) #/HPF Urine WBC 5-10 A (NONE SEEN) #/HPF Ur Squamous Epith Cells Few A (NONE/RARE) #/LPF Urine Crystals None seen (None Seen) #/HPF Urine Bacteria Trace A (NONE SEEN) #/HPF Urine Casts None seen (NONE SEEN) #/LPF Urine Mucus None seen (NONE SEEN) Ur Culture Indicated? Yes-[facility] Imaging Data Chest x-ray: Attestation: I have reviewed the pertinent imaging results. Radiologist's impression: ITS Impressions Chest X-Ray 02/05/25 13:43 IMPRESSION: Mild airspace opacities within the left lung base. This may represent atelectasis or infiltrate. Impression dictated by: Fritz Ortega M.D. 02/05/2025 2:11 PM Dictation Location: [place] [address] Electronically authenticated by: [id number] Y Date: 02/05/2025 14:11 ECG Data Attestation: ?I have reviewed the pertinent ECG results. Discharge Plan Discharge Chief Complaint: Recheck/Abnormal Lab/Rx Clinical Impression: Hypertensive urgency Patient Disposition: Home, Self-Care Time of Disposition Decision: 16:27 Condition: Good Mode of Transportation: Private Vehicle Prescriptions / Home Meds: No Action betamethasone dipropionate 0.05 % cream 1 applic TOPICAL Q12H PRN (Reason: rash) aspirin 81 mg tablet,delayed release (DR/EC) 81 mg PO DAILY losartan 25 mg tablet 25 mg PO DAILY amlodipine 5 mg tablet 5 mg PO DAILY atorvastatin 40 mg tablet 40 mg trazodone 50 mg tablet 50 mg PO .COMPLEX PRN (Reason: sleep) Rx Instructions: 50 mg orally PRN; esomeprazole magnesium 40 mg capsule,delayed release(DR/EC) fexofenadine [Анна Allergy] 180 mg tablet 180 mg PO DAILY PRN (Reason: itching) alprazolam 0.25 mg tablet meloxicam 15 mg tablet 15 mg PO DAILY PRN (Reason: inflammation) Print Language: Hebrew Additional Instructions: Diagnosis: * Hypertensive urgency (elevated blood pressure without signs of organ damage) What We Found Today * Your blood pressure on arrival was very high. * You were given a medication (labetalol) to lower your blood pressure slowly and safely. * Your blood pressure improved to a safer range before discharge. * Your heart tests (EKG and troponin) were normal and showed no heart damage. * Your kidney tests and electrolytes were normal. Medications * Continue your home blood pressure medications (losartan and amlodipine) as prescribed. * Do not skip doses. * Do not take extra doses unless your doctor tells you to. Blood Pressure Monitoring * Check your blood pressure once daily for the next several days. * Write down the results and bring them to your primary care appointment. * It is okay if your blood pressure is not completely normal right away ? lowering it too quickly is unsafe. When to Seek Emergency Care Return to the ER or call 911 if you have any of the following: * Chest pain or pressure * Trouble breathing or worsening shortness of breath * New or severe headache * Weakness, numbness, vision changes, trouble speaking * Passing out or feeling like you might pass out * Blood pressure over 200 systolic AND you feel unwell (headache, dizziness, chest pain) * Fever, cough, or symptoms of pneumonia Home Care * Stay well hydrated. * Take slow deep breaths several times a day to help clear the mild atelectasis. * Avoid excessive salt in your diet. * Rest today and resume normal activity as tolerated. Follow-Up * Follow up with your primary care provider within 1 week to review your blood pressure and medications. * Bring your home blood pressure log to this appointment. Referrals: Physician,Non-Staff, [Physician] - 1 week Discharge Date/Time: 02/05/25 16:43
[2025-02-05 14:18] LABS: NT Pro B Type Natriuretic Pept 663.0 pg/mL (<=1800.0)
[2025-02-05] MEDS: LABETALOL HCL 20 MG/4 ML SYRINGE 5 MG IV (14:33)
[2025-02-05] MEDS: ACETAMINOPHEN 325 MG TABLET 650 MG PO (14:48)
[2025-02-05 15:34] LABS: Glucose Urine UA NEGATIVE (NEGATIVE)
[2025-02-05 15:43] LABS: Crystals Seen? None Seen #/HPF (None Seen)
[2025-02-05 15:44] LABS: Cast Seen? NONE SEEN #/LPF (NONE SEEN); Urine Culture Indicated YES-FRMC
== END 2025-02-05 16:43 | disposition home or self-care (01) ==
PROVIDERS: Physician Assistant; Emergency Provider Emergency Medicine; PCP Nurse Practitioner
DX: I16.0 Hypertensive urgency (principal); I10 Essential (primary) hypertension; R06.02 Shortness of breath; Z79.899 Other long term (current) drug therapy
CPT/HCPCS: 36415; 71045; 80053; 81001; 83880; 84484; 85025; 87086; 93005; 96374; 99285; J1920